=== PATIENT | female | born 1975 | race Caucasian/White ===

== ENCOUNTER 2023-04-11 09:00 | Emergency (ER) | payer MEDICARE ==
[2023-04-11 09:58] LABS: Absolute Lymphocytes (CBC) 1.4 K/uL (0.7-4.9); Hematocrit 40.9 % (36.0-45.0); Lymphocytes % 27.8 % (15.3-44.8); MCV 89.9 fL (80-100); RBC Red Blood Cell Count 4.55 M/uL (3.86-4.86)
[2023-04-11 09:59] LABS: Specific Gravity 1.009 (1.005-1.030); Urine Bacteria <20 /HPF (<20); Urine Bilirubin NEGATIVE (Negative); Urine Blood Negative (Negative); Urine Clarity Clear (Clear); Urine Color Light-Yellow (Yellow); Urine Glucose NEGATIVE (Negative); Urine Mucus Slight /HPF (None Seen); Urine Protein NEGATIVE (Negative); Urine RBC <5 /HPF (None Seen); Urine Urobilinogen Normal (Normal)
[2023-04-11 10:15] LABS: Albumin 3.8 g/dL (3.4-5.0); Bilirubin Total 0.5 mg/dL (0.2-1.0); Potassium 3.8 mEq/L (3.5-5.1); Protein, Total 7.6 g/dL (6.4-8.2)
--- NOTE | 2023-04-11 11:27 | RAD REPORT ---
EXAM DESCRIPTION: CT - Abdomen Pelvis W Contrast - 04/11/2023 11:05 am CLINICAL HISTORY: CONSTIPATION COMPARISON: No comparisons TECHNIQUE: Thin cut axial CT imaging of the abdomen and pelvis was performed following intravenous a dministration of 100 mL Isovue 300. Multiplanar reformats were generated and reviewed. All CT scans are performed using dose optimization technique as appropriate and may include automated exposure control or mA/KV adjustment according to patient size. FINDINGS: No suspicious findings in the lung bases. The liver demonstrates a micronodular contour and relative hypertrophy of the left liver lobe, sugges tive of cirrhosis. Adrenal glands, spleen, and pancreas show no suspicious findings. Gallbladder and biliary tree are also without suspicious finding. Symmetric renal function is seen with no hydronephrosis or suspicious renal mass. No dilated bowel loops or bowel wall thickening. No free air, free fluid or inflammatory stranding. N o hernia, mass or bulky lymphadenopathy. The urinary bladder is without significant finding. No suspicious bony findings. IMPRESSION: Micro nodular liver contour, suggestive of cirrhosis. No acute intra-abdominal process.
--- NOTE | 2023-04-11 12:00 | ER ---
Nurse's Notes [facility] Name: Brandy Barraza Age: 47 yrs Sex: Female : 1975 Arrival Date: 04/11/2023 Time: 09:00 Bed 16 Private MD: Diagnosis: Constipation, Liver Cirrhosis Presentation: 04/11 09:22 Chief complaint: Patient states: constipation and epigastric, last BM 4-5 days ago, ph uses laxatives regularly. Vaginal bleeding, dark blood with clots for past few days. Coronavirus screen: Vaccine status: Patient reports receiving the 2nd dose of the covid vaccine. Ebola Screen: No symptoms or risks identified at this time. Initial Sepsis Screen: Does the patient meet any 2 criteria? No. Patient's initial sepsis screen is negative. Does the patient have a suspected source of infection? No. Patient's initial sepsis screen is negative. Risk Assessment: Do you want to hurt yourself or someone else? Patient reports no desire to harm self or others. Onset of symptoms was April 11, 2023. : Method Of Arrival: Ambulatory ph : Acuity: CINTHIA 3 Triage Assessment: : General: Appears in no apparent distress. uncomfortable, Behavior is cooperative, ph appropriate for age, anxious. Pain: Complains of pain in epigastric area Pain does not radiate. EENT: No signs and/or symptoms were reported regarding the EENT system. Neuro: Level of Consciousness is awake, alert, obeys commands, Oriented to person, place, time, situation, Reports weakness. Cardiovascular: Capillary refill < 3 seconds Patient's skin is warm and dry. Respiratory: Airway is patent Respiratory effort is even, unlabored, Respiratory pattern is regular, symmetrical. GI: Abdomen is round non-distended, Abd is soft and non tender X 4 quads. Reports constipation, cramping, epigastric pain. : Reports vaginal bleeding that is brown, with clots. Derm: Skin is pink, warm \T\ dry. Musculoskeletal: Circulation, motion, and sensation intact. Range of motion: intact in all extremities. 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 - Social history:: Smoking status: Patient reports the use of cigarette tobacco products, smokes 0.25 packs per day, Patient/guardian denies using alcohol. Screenin:30 [facility] ED Fall Risk Assessment (Adult) Score/Fall Risk Level 0 - 2 = Low Risk. Abuse ph screen: Denies threats or abuse. Denies injuries from another. Nutritional screening: No deficits noted. Tuberculosis screening: No symptoms or risk factors identified. Assessment: 09:30 Reassessment: No changes from previously documented assessment. See triage assessment. ph 10:30 Reassessment: Patient appears in no apparent distress at this time. Patient and/or eh3 family updated on plan of care and expected duration. Pain level reassessed. Patient is alert, oriented x 3, equal unlabored respirations, skin warm/dry/pink. 11:30 Reassessment: Patient appears in no apparent distress at this time. Patient and/or eh3 family updated on plan of care and expected duration. Pain level reassessed. Patient is alert, oriented x 3, equal unlabored respirations, skin warm/dry/pink. Vital Signs: 09:22 BP 140 / 63; Pulse 67; Resp 20; Temp 98.2(IR); Pulse Ox 97% ; Weight 74.84 kg; Height 5 ph ft. 5 in. ; Pain 2/10; 10:30 BP 118 / 81; Pulse 61; Resp 18; Pulse Ox 96% on R/A; eh3 11:30 BP 115 / 78; Pulse 63; Resp 18; Pulse Ox 95% on R/A; eh3 09:22 Body Mass Index 27.46 (74.84 kg, 165.1 cm) ph 09:22 Pain Scale: Adult ph ED Course: 09:02 Patient arrived in ED. am2 09:07 Soila Marroquin MD is Attending Physician. sp3 09:22 Lindsay Champagne, RN is Primary Nurse. ph : Triage completed. ph 09:26 Arm band placed on. ph 09:30 Patient has correct armband on for positive identification. Placed in gown. Bed in low ph position. Call light in reach. Side rails up X2. Pulse ox on. NIBP on. 09:45 Inserted saline lock: 20 gauge in right antecubital area, using aseptic technique. eh3 Blood collected. 11:07 CT Abd/Pelvis - PO and IV Contrast: Weight loss In Process Unspecified. EDMS 11:59 Luisito Tam MD is Referral Physician. sp3 12:30 No provider procedures requiring assistance completed. IV discontinued, intact, eh3 bleeding controlled, No redness/swelling at site. Pressure dressing applied. Administered Medications: No medications were administered Medication: 12:30 VIS not applicable for this client. eh3 Outcome: 11:59 Discharge ordered by . sp3 12:31 Discharged to home ambulatory. eh3 12:31 Condition: stable 12:31 Discharge instructions given to patient, significant other, Instructed on discharge instructions, follow up and referral plans. Demonstrated understanding of instructions, follow-up care. 12:35 Patient left the ED. eh3 Signatures: Dispatcher [employer] [facility] Lindsay Champagne, RN RN Brandy Hartley am2 Soila Marroquin MD MD sp3 Sondra Champagne RN RN eh3 Corrections: (The following items were deleted from the chart) 10:30 10:26 Reassessment: Patient appears in no apparent distress at this time. Patient eh3 and/or family updated on plan of care and expected duration. Pain level reassessed. Patient is alert, oriented x 3, equal unlabored respirations, skin warm/dry/pink. eh3
--- NOTE | 2023-04-11 12:00 | EDPHYS ---
Physician Documentation [facility] Name: Brandy Barraza Age: 47 yrs Sex: Female : 1975 Arrival Date: 04/11/2023 Time: 09:00 Bed 16 Private MD: ED Physician Soila Marroquin HPI: 04/11 09:20 This 47 yrs old Female presents to ER via Unassigned with complaints of Weakness, sp3 GI/digestion problems, Skin Problem. 09:20 47-year-old female with history of hepatitis C, anxiety, chronic constipation now sp3 presents to the ED with chief complaint constipation with last bowel movement 4 days ago with use of laxatives, shakiness and generalized weakness. Patient does not have a local primary care physician but is seeing a heel attacher wood once over a month ago. She denies any fever, headache, neck pain, chest pain, shortness of breath, nausea, vomiting, diarrhea, abdominal pain, travel history, change in diet, known sick contacts, or any other symptoms on ROS at this time.. 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 - Social history:: Smoking status: Patient reports the use of cigarette tobacco products, smokes 0.25 packs per day, Patient/guardian denies using alcohol. ROS: 09:22 Constitutional: Negative for fever, chills, and weight loss, Eyes: Negative for injury, sp3 pain, redness, and discharge, ENT: Negative for injury, pain, and discharge, Neck: Negative for injury, pain, and swelling, Cardiovascular: Negative for chest pain, palpitations, and edema, Respiratory: Negative for shortness of breath, cough, wheezing, and pleuritic chest pain, Back: Negative for injury and pain, MS/Extremity: Negative for injury and deformity, Skin: Negative for injury, rash, and discoloration, Neuro: Negative for headache, weakness, numbness, tingling, and seizure. 09:22 All other systems are negative. Exam: 09:22 Constitutional: This is a well developed, well nourished patient who is awake, alert, sp3 and in no acute distress. Head/Face: Normocephalic, atraumatic. Eyes: Pupils equal round and reactive to light, extra-ocular motions intact. Lids and lashes normal. Conjunctiva and sclera are non-icteric and not injected. Cornea within normal limits. Periorbital areas with no swelling, redness, or edema. Neck: Trachea midline, no thyromegaly or masses palpated, and no cervical lymphadenopathy. Supple, full range of motion without nuchal rigidity, or vertebral point tenderness. No Meningismus. Chest/axilla: Normal chest wall appearance and motion. Nontender with no deformity. No lesions are appreciated. Cardiovascular: Regular rate and rhythm with a normal S1 and S2. No gallops, murmurs, or rubs. Normal PMI, no JVD. No pulse deficits. Respiratory: Lungs have equal breath sounds bilaterally, clear to auscultation and percussion. No rales, rhonchi or wheezes noted. No increased work of breathing, no retractions or nasal flaring. Abdomen/GI: Soft, non-tender, with normal bowel sounds. No distension or tympany. No guarding or rebound. No evidence of tenderness throughout. Back: No spinal tenderness. No costovertebral tenderness. Full range of motion. Skin: Warm, dry with normal turgor. Normal color with no rashes, no lesions, and no evidence of cellulitis. MS/ Extremity: Pulses equal, no cyanosis. Neurovascular intact. Full, normal range of motion. Neuro: Awake and alert, GCS 15, oriented to person, place, time, and situation. Cranial nerves II-XII grossly intact. Motor strength 5/5 in all extremities. Sensory grossly intact. Cerebellar exam normal. Normal gait. Psych: Awake, alert, with orientation to person, place and time. Behavior, mood, and affect are within normal limits. Vital Signs: 09:22 BP 140 / 63; Pulse 67; Resp 20; Temp 98.2(IR); Pulse Ox 97% ; Weight 74.84 kg; Height 5 ph ft. 5 in. ; Pain 2/10; 10:30 BP 118 / 81; Pulse 61; Resp 18; Pulse Ox 96% on R/A; eh3 11:30 BP 115 / 78; Pulse 63; Resp 18; Pulse Ox 95% on R/A; eh3 09:22 Body Mass Index 27.46 (74.84 kg, 165.1 cm) ph 09:22 Pain Scale: Adult ph MDM: 09:07 Patient medically screened. sp3 09:22 Data reviewed: vital signs, nurses notes, lab test result(s), radiologic studies. ED sp3 course: 47-year-old female with generalized constipation, generalized weakness, and reported weight loss and mild night sweats. Patient does not have any abdominal pain does not have a surgical abdomen. Will obtain CT scan with p.o. and IV contrast to assess for general bowel pattern and assess for any potential observable malignancy potential. Patient does have paternal history of lung cancer. Patient is currently menstruating and I do not believe is . If work-up negative, will discharge patient home to PCP who clinically have ruled out surgical abdomen, vascular compromise, sepsis, shock, infection, or any other significant critical findings at this time.. 11:58 ED course: Laboratory values are normal other than mild elevated lipase. Patient sp3 started heavy alcohol user and remainder of liver function and bilirubin biliary tree labs are normal. CT scan demonstrates no biliary pathology. Will DC and follow-up with PCP.. 04/11 09:19 Order name: CBC with Diff; Complete Time: 10:48 sp3 04/11 09:19 Order name: CMP; Complete Time: 10:48 sp3 04/11 09:19 Order name: Lipase; Complete Time: 10:48 sp3 04/11 09:19 Order name: Test, Urine; Complete Time: 10:48 sp3 04/11 09:19 Order name: Urinalysis w/ reflexes; Complete Time: 10:48 sp3 04/11 09:19 Order name: CT Abd/Pelvis - PO and IV Contrast: Weight loss; Complete Time: 11:58 sp3 04/11 09:19 Order name: IV Saline Lock; Complete Time: 09:50 sp3 04/11 09:19 Order name: Labs collected and sent; Complete Time: 09:50 sp3 04/11 09:19 Order name: NPO; Complete Time: 09:30 sp3 Administered Medications: No medications were administered Disposition Summary: 04/11/23 11:59 Discharge Ordered Location: Home sp3 Condition: Stable sp3 Diagnosis - Constipation, Liver Cirrhosis sp3 Followup: sp3 - With: Luisito Tam MD - When: Upon discharge from the Emergency Department - Reason: Further diagnostic work-up, Recheck today's complaints Discharge Instructions: - Discharge Summary Sheet sp3 - Chronic Constipation sp3 Forms: - Medication Reconciliation Form sp3 - Thank You Letter sp3 - Antibiotic Education sp3 - Prescription Opioid Use sp3 Signatures: Dispatcher [employer] Lindsay Roche RN RN Soila Santiago MD MD sp3
[2023-04-11 12:52] VITALS: TEMP 98.2
[2023-04-11 12:56] VITALS: BP 115/78; O2SAT 95
== END 2023-04-11 12:35 | disposition home or self-care (01) ==
LOC: ER 09:00
DX: K74.60 Unspecified cirrhosis of liver (principal); K59.00 Constipation, unspecified; B19.20 Unspecified viral hepatitis C without hepatic coma; F17.210 Nicotine dependence, cigarettes, uncomplicated
CPT/HCPCS: 36415; 74177; 80053; 81001; 81025; 83690; 85025; Q9967

== ENCOUNTER 2023-09-05 22:20 | Emergency (ER) | payer MEDICARE, SELFPAY ==
--- OUTSIDE RECORDS SUMMARY | 2023-09-05 22:26 | XMS REPORT | Continuity of Care Document ---
:[address] [facility] t Address [address] [facility] [address] [place] [id number] Care Team Providers Name Role Phone PCP, PATIENT DOES NOT HAVE A Primary Care Physician UnavailLATASHA Oneal Attending Clinician Unavailable AVERY ELIZABETH Attending Clinician Unavailable ANNA DIAZ Attending Clinician Unavailable Anna Diaz MD Attending Clinician Doctor Unassigned, [place] Attending Clinician Unavailable Jerman Vital Attending Clinician Unavailable Garth Shipman Attending Clinician Unavailable Physician, No Primary or Family Admitting Clinician UnavailBerto Rousseau Admitting Clinician Unavailable Payers Payer Name Policy Type Policy Number Effective Date Expiration Date S aida AETNA [facility] 9 [id number] 2023 SILVER: HMO [place] 94 00:00:00 ON STAND HIM BCBS BLUE [id number] 2022 ADVANTAGE HMO 00:00:00 Problems Condition Condition Condition Status Onset Resolution Last Treating Co mments Source Name Details Category Date Date Treatment Clinician Date Liver Liver Disease Active [facility] disease disease [facility] [place] [facility] [place] 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 [place] infection infection Medi pauline Branch Allergies, Adverse Reactions, Alerts Allergy Allergy Status Severity Reaction(s) Onset Inactive Treating Comm ents Source Name Type Date Date Clinician No Known DA Active U [facility] Allergie 6 Corpus s 00:00: Pauline 00 [facility] No Known DA Active U [facility] Allergie 6 Corpus s 00:00: Pauline 00 [facility] No Known DA Active U [facility] Allergie 7 Corpus s 00:00: [facility] NO KNOWN Drug Active Univers ALLERGIE Class ity of S [facility] Social History Social Habit Start Date Stop Date Quantity Comments Source History of tobacco Cigarette Smoker [facility] Exposure to 2023-01-08 2023-01-18 Not sure [facility]-CoV-2 (event) 00:00:00 09:32:00 [facility] Cigarettes smoked 2023-01-18 2023-01-18 [facility] ity current (pack per 00:00:00 00:00:00 [facility] ) - Reported Branch Tobacco use and 2023-01-18 2023-01-18 Smokeless Universit y of exposure 00:00:00 00:00:00 tobacco non-user [facility] Alcohol intake 2023-01-18 2023-01-18 Ex-drinker [facility] 00:00:00 00:00:00 (finding) [facility] At [birth year] [facility] Smoking Status Start Date Stop Date Source Tobacco smoking consumption [facility] Branch Smokes tobacco daily 2023-01-18 00:00:00 Univers ity of [facility] Medications Ordered Filled Start Stop Current Ordering Indication Dosage Frequency Signature Comments Components Source Medication Medication Date Date Medication? Clinician (SIG) Name Name venlafaxine Yes 150mg Take 1 Uni vers XR 150 mg 2-13 capsule by ity of 24 hr 00:00: mouth in [place] capsule 00 the Medical morning. Branch venlafaxine Yes 150mg Take 1 Uni vers XR 150 mg 2-13 capsule by ity of 24 hr 00:00: mouth in [place] capsule 00 the Medical morning. Branch spironolact Yes TAKE ONE Un loretta one 50 mg 1-27 (1) ity of tablet 00:00: TABLET(S) [place] 00 BY MOUTH Medical IN THE [place] MORNING AND TWO (2) AT NIGHT. venlafaxine Yes 75mg Take 1 Univ ers XR 75 mg 24 1-27 capsule by it y of hr capsule 00:00: mouth in [place] as 00 the Medical morning. Branch spironolact Yes TAKE ONE Un loretta one 50 mg 1-27 (1) ity of tablet 00:00: TABLET(S) [place] 00 BY MOUTH Medical IN THE [place] MORNING AND TWO (2) AT NIGHT. venlafaxine 0 Yes 75mg Take 1 Univ ers XR 75 mg 24 1-27 capsule by it y of hr capsule 00:00: mouth in [place] as 00 the Medical morning. [place] Vital Signs Vital Name Observation Time Observation Value Comments Source Systolic blood 2023-01-18 15:58:00 121 mm[Hg] [facility] Diastolic blood 2023-01-18 15:58:00 80 mm[Hg] [facility] rate 2023-01-18 15:58:00 72 /min [facility] Body temperature 2023-01-18 15:58:00 36.72 [facility] Respiratory rate 2023-01-18 15:58:00 16 /min [facility] Body height 2023-01-18 15:58:00 165.1 cm [facility] Body weight 2023-01-18 15:58:00 81.92 kg [facility] BMI 2023-01-18 15:58:00 30.05 kg/m2 [facility] Oxygen saturation in 2023-01-18 15:58:00 97 /min [facility] Arterial blood by [facility] [place] Pulse oximetry [place] Procedures Procedure Date / Time Performed Performing Clinician Sourc e URINE CULTURE 2023-01-18 16:54:00 Anna Diaz [place] o f [facility] CONSENT/REFUSAL FOR 2023-01-18 15:33:37 Doctor Unassigned, No [facility] TREATMENT ASSIGNMENT OF BENEFITS 2023-01-18 15:33:21 Doctor Unassigned, No [facility] POCT URINALYSIS W/O 2023-01-18 00:00:00 Anna Diaz ty of [facility] Encounters Start End Encounter Admission Attending Care Care Encounter Source Date/Time Date/Time Type Type Clinicians Facility Department ID 2019-12-04 Inpatient [facility] ER [id number] [facility] 11:10:00 [id number] [facility] 2019-12-03 Inpatient [facility] ER [id number] [facility] 07:17:00 [id number] [facility] 2023-09-16 2023-09-16 Outpatient ANA SEVILLA [id number] Ana 14:30:00 14:30:00 LATASHA torres 2023-02-11 2023-02-11 Outpatient R ADMANUEL, [facility] [id number] Univers 10:30:00 10:30:00 ANNA [facility] 2023-01-21 2023-01-21 Outpatient R ADUM, [facility] [id number] Univers 00:00:00 00:00:00 ANNA [facility] 2023-01-18 2023-01-18 Outpatient R ADUM, [facility] [id number] Univers 10:30:00 11:02:40 ANNA [facility] 2023-01-18 2023-01-18 Office Adum, [facility] [id number] Univers 10:30:00 11:02:40 Visit Anna DALEY [id number] i ty of [id number] [facility] [id number] [facility] 134 Branch 2023-01-18 2023-01-18 Orders Doctor ABHIJEET [id number] Univers 00:00:00 00:00:00 Only Unassigned, AISLINN [id number] ity of [place] [facility] [id number] [place] as [id number] [facility] 009 Branch 2022-05-14 2022-05-17 Emergency EM Amanuel, [facility] ER [id number] [facility] 14:26:00 11:45:00 Jerman Bauman [facility] 2022-05-142022-05-17 Emergency EM Amanuel, [facility] [id number] [facility] 14:26:00 11:45:00 Jerman [id number] [facility] 2022-03-24 2022-03-24 Emergency EM Ramonita, [facility] [id number] [facility] 19:55:00 21:28:00 Garth 27 [facility] 2022-03-24 2022-03-24 Emergency EM Ramonita, [facility] [id number] [facility] 19:55:00 21:28:00 Garth [id number] [facility] Results Test Description Test Time Test Comments Results Result Comments Source POCT URINALYSIS W/O SPECIFIC GRAVITY 2023-01-18 16:53:00 Test Item Value Reference Range Interpretation Comme nts POCT PH U (test code = 3254) 7 mg/dl 5-8 POCT U LEUK EST (test code = 3263) negative Negative - Negative POCT U NIT (test code = 3262) negative Negative - Negative POCT U PROT (test code = 3259) trace Negative - Negative POCT U GLU (test code = 3256) negative Negative - Negative POCT U KETONE (test code = 3258) negative Negative - Negative POCT U BLD (test code = 3257) 50 Negative - Negative [facility] URINALYSIS W/O SPECIFIC [id number] 16:53:00 Test Item Value Reference Range Interpretation Comments POCT PH U (test code = 3254) 7 mg/dl 5-8 POCT U LEUK EST (test code = negative Negative - Negative 3263) POCT U NIT (test code = 3262) negative Negative - Negative POCT U PROT (test code = 3259) trace Negative - Negative POCT U GLU (test code = 3256) negative Negative - Negative POCT U KETONE (test code = 3258) negative Negative - Negative POCT U BLD (test code = 3257) 50 Negative - Negative [facility]2022-06-27 03:53:00 Test Item Value Reference Range Interpretation Comments CK (test code = CKT) 426 Units/L 26-192 H THIS IS A RECOLLECT-PRVS [id number] 13:23:00 Test Item Value Reference Range Interpretation Comments CK (test code = CKT) 544 Units/L 26-192 H [id number] 06:29:00 Test Item Value Reference Range Interpretation Comments CK (test code = CKT) 675 Units/L 26-192 H [id number] 17:36:00 Test Item Value Reference Range Interpretation Comments CK (test code = CKT) 990 Units/L 26-192 H CBC W/AUTO [id number] 17:24:00 Test Item Value Reference Range Interpretation Comments WHITE BLOOD CELL (test 8.16 x10 3/uL 4.80-10.80 N code = WBC) RED BLOOD CELL (test 4.12 x10 6/uL 4.2-5.4 L code = RBC) HEMOGLOBIN (test code = 12.8 G/DL 12.0-16.0 VERI FIED BY HGB) REPEATED ANALYS IS BY Mukul Betancourt 05/15/22 HEMATOCRIT (test code = 36.0 % 37-47 L HCT) MEAN CELL VOLUME (test 87.4 FL 81-99 N code = MCV) MEAN CELL HGB (test 31.1 PG 27-31 H code = MCH) MEAN CELL HGB 35.6 G/DL 33-37 N CONCENTRATION (test code = MCHC) RED CELL DISTRIBUTION 13.2 % 11.5-14.5 N WIDTH (test code = RDW) PLATELET COUNT (test 126 x10 3/uL 150-450 L code = PLT) MEAN PLATELET VOLUME 9.4 FL 7.4-10.4 N (test code = MPV) NEUTROPHIL % (test code 78.9 % 42-86 N = NT%) IMMATURE GRANULOCYTE % 0.6 % 0.0-2.0 N (test code = IG%) LYMPHOCYTE % (test code 13.1 % 24-44 L = LY%) MONOCYTE % (test code = 5.4 % 0.0-4.0 H MO%) EOSINOPHIL % (test code 1.5 % 0.0-2.7 N = EO%) BASOPHIL % (test code = 0.5 % 0.0-0.5 N BA%) NUCLEATED RBC % (test 0.0 % 0.0-0.0 N code = NRBC%) NEUTROPHIL # (test code 6.44 x10 3/uL 1.8-7.7 N = NT#) IMMATURE GRANULOCYTE # 0.05 x10 3/uL 0.00-0.03 H (test code = IG#) LYMPHOCYTE # (test code 1.07 x10 3/uL 1.0-4.8 N = LY#) MONOCYTE # (test code = 0.44 x10 3/uL 0.0-0.8 N MO#) EOSINOPHIL # (test code 0.12 x10 3/uL 0.0-0.5 N = EO#) BASOPHIL # (test code = 0.04 x10 3/uL 0.0-0.2 N BA#) NUCLEATED RBC # (test 0.0 X10 3/uL 0.0-0.2 N code = NRBC#) [id number] 14:42:00 Test Item Value Reference Range Interpretation Comments CK (test code = CKT) 1094 Units/L 26-192 H [id number] 04:55:00 Test Item Value Reference Range Interpretation Comments CK (test code = CKT) 1510 Units/L 26-192 H [id number] 00:46:00 Test Item Value Reference Range Interpretation Comments CK (test code = CKT) 1683 Units/L 26-192 H LACTIC [id number] 16:06:00 Test Item Value Reference Range Interpretation Comments LACTIC ACID (test code = LACT) 0.8 MMOL/L 0.5-2.2 N Coronavirus 2019 nCoV [id number] 15:20:00 Test Item Value Reference Range Interpretation Comments Coronavirus 2019 Negative Negative ID NOW COVI D-19 assay nCoV Bedside (test performed on the ID NOW code = [id number]) Instrum ent evelyn rapid molecular in vi tro diagnostic test utilizing anisothermal nu cleic acid amplification t echnology intendedfor the qualitative det ection of nucleic acid fr om [id number] v iral RNA in direct nasal , nasopharyngeal orthroat swabs and nasal , nasopharyngeal or throat swabseluted in viral transport media from individuals who aresuspected of COVID-19 by their health care provider. Negat mk results should be treated as presumptive and, ifinconsistent with clinical signs and symptoms or nec essaryfor patient managem ent, should be teste d with differentauthor ized or cleared molecul ar tests. Negative result s donot preclude SARS-C oV-2 infection and s hould not be used asthe s ole basis for patient man agement decisions. Negativeresults should be considered in t he context of a patient'sr ecent exposures, hist ory and presence of cli nical signs andsympto ms consistent with COVID-19.Result s are for the identificat ion of SARS-CoV-2 RNA. For Use Under an Emerge ncy Use Authorization ( EUA) Only Negative result s do not preclude SARS-C oV-2 infection andsh ould not be used as the sole basis for patient managementdecis ions. Negative result s must be combined with clinicalobserva tions, patient history , and epidemiological informatio n. COMPREHENSIVE METABOLIC [id number] 15:19:00 Test Item Value Reference Range Interpretation Comments SODIUM (test code = 132 MMOL/L 133-145 L NA) POTASSIUM (test code = 3.9 MMOL/L 3.6-5.2 N K) CHLORIDE (test code = 96 MMOL/L 100-108 L CL) CARBON DIOXIDE (test 26 MMOL/L 22-32 N code = CO2) GLUCOSE (test code = 110 MG/DL 65-99 H Results of this GLU) assay method ma y be falsely depress ed orelevated if patient is taki ng sulfasalazine. BLOOD UREA NITROGEN 31 MG/DL 6-20 H (test code = BUN) GLOMERULAR FILTRATION 47 58-135 L Report ing units: RATE (test code = GFR) mL/mi n/1.73m\S\2 (Modified MDRD Formula) CREATININE (test code 1.25 MG/DL 0.60-1.00 H = CREAT) TOTAL PROTEIN (test 9.2 G/DL 6.4-8.2 H code = PROT) ALBUMIN (test code = 4.7 G/DL 3.4-5.0 N ALB) GLOBULIN (test code = 4.5 G/DL 1.5-3.8 H GLOB) ALBUMIN/GLOBULIN RATIO 1.0 1.1-2.2 L (test code = A/G) CALCIUM (test code = 9.4 MG/DL 8.7-10.5 N CA) BILIRUBIN TOTAL (test 2.4 MG/DL 0.0-1.0 H code = BILT) SGOT/AST (test code = 91 Units/L 15-37 H Result s of this AST) assay method rd y be falsely depress ed orelevated if patient is taki ng sulfasalazine. SGPT/ALT (test code = 51 Units/L 30-65 N Result s of this ALT) assay method rd y be falsely depress ed orelevated if patient is taki ng sulfasalazine. ALKALINE PHOSPHATASE 105 Units/L 50-136 N TOTAL (test code = ALKP) [id number] 15:19:00 Test Item Value Reference Range Interpretation Comments CK (test code = CKT) 2228 Units/L 26-192 H [id number] 15:19:00 Test Item Value Reference Range Interpretation Comments ACETAMINOPHEN (test < 1 MCG/ML 10-30 L Acetamin ophen is code = ACET) possibly toxic at levels of: 1. m ore than 150 MCG/ML 4 hours post trent stion. 2. more than 50 MCG/ML 12 hours post ingestion. [id number] 15:19:00 Test Item Value Reference Range Interpretation Comments SALICYLATE (test code = < 3 MG/DL 0-20 N Refe rence Range: TEMO) Analgesic...... ...... ...... < 10 mg/ dl Therapeutic.... ...... ...... 15-20 mg /dl Mild Toxicity....... ...... . > 30 mg/dl Se kate Toxicity....... ..... > 60 mg/dl [id number] 15:19:00 Test Item Value Reference Range Interpretation Comments ALCOHOL (test code = < 3 MG/DL 0-10 N 0 - 10 : Should be ALC) interpreted as NEGATIVE. 11 - 50: None t o mild euphoria. 51 - 100: Mild influence on vi lai and dark adaptation . > 80: Legal intoxicat ion; Depression of C NS; Increasing degr ee of poisoning. > 40 0: Fatalities repo rted. Results are for medical purposes only a nd not forlegal or emp loyment evaluative purp oses. UA RFLX [id number] 15:16:00 Test Item Value Reference Range Interpretation Comments UA COLOR (test code = COLU) YELLOW YELLOW UA APPEARANCE (test code = HAZY CLEAR APPU) UA GLUCOSE DIPSTICK (test NEGATIVE mg/dL NEGATIVE code = DGLUU) UA BILIRUBIN DIPSTICK (test NEGATIVE NEGATIVE code = BILU) UA KETONE DIPSTICK (test code 5 mg/dL NEGATIVE A = KETU) UA SPECIFIC GRAVITY (test 1.030 1.001-1.035 N code = SGU) UA BLOOD DIPSTICK (test code 1+ NEGATIVE A = BRIELLE) UA PH DIPSTICK (test code = 5.0 5.5-7.0 L KINGS) UA PROTEIN DIPSTICK (test 30 mg/dL NEGATIVE A code = PROU) UA UROBILINOGEN DIPSTICK NORMAL mg/dL NORMAL (test code = URO) UA NITRITE DIPSTICK (test NEGATIVE NEGATIVE code = EVANGELIST) UA LEUKOCYTE ESTERASE 25 NEGATIVE A DIPSTICK (test code = LEUU) UA COMMENT (test code = COMU) VOLUME 10-12 ML URINE SPECIMEN DESCRIPTION Clean Catch (test code = UASPEC) UA [id number] 15:16:00 Test Item Value Reference Range Interpretation Comments UA WBC (test code = WBCU) > 10 #/hpf <10 A UA RBC (test code = RBCU) 0-2 #/hpf NONE SEEN A UA SQUAMOUS CELLS (test code = 0 - 20 #/lpf <100 SQU) UA CULTURE NEEDED? (test code = Criteria met UACULT) UA BACTERIA (test code = BACU) 2+ #/hpf NONE SEEN UA AMORPHOUS SEDIMENT (test code FEW #/lpf None seen = AMORU) DRUG OF ABUSE SCREEN [id number] 15:09:00 Test Item Value Reference Interpretation Comments Range UR COCAINE (test NEGATIVE NEGATIVE code = COCAU) UR MDMA (test code = POSITIVE NEGATIVE A If conf irmatory testing MDMAQLU) required, conta ct laboratory. UR CANNABINOIDS POSITIVE NEGATIVE A If confirmat ory testing (test code = CANU) required, contact laboratory. UR AMPHETAMINE (test POSITIVE NEGATIVE A If conf irmatory testing code = AMPHU) required, cont act laboratory. UR BARBITURATE QUAL NEGATIVE NEGATIVE (test code = BARBQLU) UR BENZODIAZEPINE POSITIVE NEGATIVE A If confirm atory testing (test code = BENZU) required , contact laboratory. UR OPIATES QUAL NEGATIVE NEGATIVE (test code = OPIAQLU) UR PHENCYCLIDINE NEGATIVE NEGATIVE Urine Drug Abuse Screen (PCP) (test code = provides preliminary PHENCU) results thatmay be confirmed by jossue baltazar methods (i.e., [facility]) [facility]. Results of scre en may not be usedin crimi nal justice, job performance or professionalcre dential review, or infa nt custody issues. Negativ e [place] Level ng/ml ------- ----- Cocaine 300 Methamphetamine (Ecstacy) 500 Cannabinoid s (THC) 50 Amphetamine 100 0 Barbiturates 20 0 Benzodiazepines 200 Opiates 300 Phencyclid ine (PCP) 25 UR HCG [id number] 14:59:00 Test Item Value Reference Range Interpretation Comments UR HCG QUAL (test NEGATIVE NEGATIVE False nega tives may occur code = HCGQLU) when levels o f hCGare below 20 mIU/ml. When is still suspec cm, a new specimenshould be obtained after 48 hours and re-tested.If wa iting 48 hours is not me dically advisable,the t est result should be confi rmed using aquantitative h CG assay. CBC W/AUTO [id number] 14:57:00 Test Item Value Reference Range Interpretation Comments WHITE BLOOD CELL (test 18.75 x10 3/uL 4.80-10.80 H Res ults called to code = WBC) and read back Malena ARITA RN;1457, 05/14/22, D.LAB.AS1. RED BLOOD CELL (test 4.87 x10 6/uL 4.2-5.4 N code = RBC) HEMOGLOBIN (test code = 15.0 G/DL 12.0-16.0 N HGB) HEMATOCRIT (test code = 42.2 % 37-47 N HCT) MEAN CELL VOLUME (test 86.7 FL 81-99 N code = MCV) MEAN CELL HGB (test 30.8 PG 27-31 N code = MCH) MEAN CELL HGB 35.5 G/DL 33-37 N CONCENTRATION (test code = MCHC) RED CELL DISTRIBUTION 13.3 % 11.5-14.5 N WIDTH (test code = RDW) PLATELET COUNT (test 199 x10 3/uL 150-450 N code = PLT) MEAN PLATELET VOLUME 9.4 FL 7.4-10.4 N (test code = MPV) NEUTROPHIL % (test code 84.9 % 42-86 N = NT%) LYMPHOCYTE % (test code 8.3 % 24-44 L = LY%) MONOCYTE % (test code = 6.3 % 0.0-4.0 H MO%) EOSINOPHIL % (test code 0.2 % 0.0-2.7 N = EO%) BASOPHIL % (test code = 0.3 % 0.0-0.5 N BA%) NEUTROPHIL # (test code 15.93 x10 3/uL 1.8-7.7 H = NT#) LYMPHOCYTE # (test code 1.56 x10 3/uL 1.0-4.8 N = LY#) MONOCYTE # (test code = 1.18 x10 3/uL 0.0-0.8 H MO#) EOSINOPHIL # (test code 0.03 x10 3/uL 0.0-0.5 N = EO#) BASOPHIL # (test code = 0.05 x10 3/uL 0.0-0.2 N BA#) BASIC METABOLIC [id number] 21:15:00 Test Item Value Reference Range Interpretation Comments SODIUM (test code = 140 MMOL/L 133-145 N NA) POTASSIUM (test code = 4.0 MMOL/L 3.6-5.2 N K) CHLORIDE (test code = 104 MMOL/L 100-108 N CL) CARBON DIOXIDE (test 34 MMOL/L 22-32 H code = CO2) GLUCOSE (test code = 77 MG/DL 65-99 N Results of this assay GLU) method may be f alsely depressed orele vated if patient is t aking sulfasalazine. BLOOD UREA NITROGEN 13 MG/DL 6-20 N (test code = BUN) GLOMERULAR FILTRATION 91 58-135 N Report ing units: RATE (test code = GFR) mL/mi n/1.73m\S\2 (Modified MDRD Formula) CREATININE (test code 0.70 MG/DL 0.60-1.00 N = CREAT) CALCIUM (test code = 8.3 MG/DL 8.7-10.5 L CA) TROP-I HIGH [id number] 21:15:00 Test Item Value Reference Range Interpretation Comments TROP-I HIGH 10 ng/L < 51 This is a new t est. A SENSITIVITY (test transition from TropI to code = TROPIHS) TropIHS. The normal ranges and repo rting units have arriaga ged. Pleasereview re sults carefully.Res ults above 51 for females and 76 for males are consi stent with IFCC Committee recommendations to use the 99th percen tile of a normal populati on as a reference decis ion-limit. - The use of se rial sampling and te sting protocol is a r ecommended practive.- An e levated high sensitivei ty troponin level alone is often not suffi cient for diagnosis of my ocardial infarction.- In order to distinguish acu te elevations of h igh sensitivity tro ponin from other clinical conditions, the Fourth Lee Defin ition of Myocardial Infa rction stresses clinic al assessment and demonstration o f a rise and/or fall in serial troponin result s above the upper refer ence limit.Results o f this assay method ma y be falsely depress ed orelevated if p atient is taking high dos es of Biotin. UA RFLX MICROSCOPIC [id number] 21:02:00 Test Item Value Reference Range Interpretation Comments UA COLOR (test code = COLU) DARK YELLOW YELLOW UA APPEARANCE (test code = SLIGHTLY CLOUDY CLEAR APPU) UA GLUCOSE DIPSTICK (test NEGATIVE mg/dL NEGATIVE code = DGLUU) UA BILIRUBIN DIPSTICK (test NEGATIVE NEGATIVE code = BILU) UA KETONE DIPSTICK (test 5 mg/dL NEGATIVE A code = KETU) UA SPECIFIC GRAVITY (test 1.010 1.001-1.035 N code = SGU) UA BLOOD DIPSTICK (test code NEGATIVE NEGATIVE = BRIELLE) UA PH DIPSTICK (test code = 6.5 5.5-7.0 N KINGS) UA PROTEIN DIPSTICK (test NEGATIVE mg/dL NEGATIVE code = PROU) UA UROBILINOGEN DIPSTICK 1.0 mg/dL NORMAL (test code = URO) UA NITRITE DIPSTICK (test NEGATIVE NEGATIVE code = EVANGELIST) UA LEUKOCYTE ESTERASE 25 NEGATIVE A DIPSTICK (test code = LEUU) UA COMMENT (test code = VOLUME 10-12 ML COMU) URINE SPECIMEN DESCRIPTION Clean Catch (test code = UASPEC) UA WBC (test code = WBCU) < 10 #/hpf <10 UA SQUAMOUS CELLS (test code 0 - 20 #/lpf <100 = SQU) UA CULTURE NEEDED? (test Criteria not met code = UACULT) Indication for culture: Suprapubic PainURINE SOURCE: Clean CatchUA MICROSCOPIC 2022-03-24 21:02:00 Test Item Value Reference Range Interpretation Comments UA RBC (test code = RBCU) 0-2 #/hpf NONE SEEN A UA BACTERIA (test code = BACU) RARE #/hpf NONE SEEN Indication for culture: Suprapubic PainURINE SOURCE: Clean CatchUR HCG QUAL 2022-03-24 20:59:00 Test Item Value Reference Range Interpretation Comments UR HCG QUAL (test NEGATIVE NEGATIVE False nega tives may occur code = HCGQLU) when levels o f hCGare below 20 mIU/ml. When is still suspec cm, a new specimenshould be obtained after 48 hours and re-tested.If wa iting 48 hours is not me dically advisable,the t est result should be confi rmed using aquantitative h CG assay. CBC W/AUTO [id number] 20:57:00 Test Item Value Reference Range Interpretation Comments WHITE BLOOD CELL (test code = 4.76 x10 3/uL 4.80-10.80 L WBC) RED BLOOD CELL (test code = 4.20 x10 6/uL 4.2-5.4 N RBC) HEMOGLOBIN (test code = HGB) 12.8 G/DL 12.0-16.0 N HEMATOCRIT (test code = HCT) 37.9 % 37-47 N MEAN CELL VOLUME (test code = 90.2 FL 81-99 N MCV) MEAN CELL HGB (test code = MCH) 30.5 PG 27-31 N MEAN CELL HGB CONCENTRATION 33.8 G/DL 33-37 N (test code = MCHC) RED CELL DISTRIBUTION WIDTH 13.3 % 11.5-14.5 N (test code = RDW) PLATELET COUNT (test code = 112 x10 3/uL 150-450 L PLT) MEAN PLATELET VOLUME (test code 10.1 FL 7.4-10.4 N = MPV) NEUTROPHIL % (test code = NT%) 51.0 % 42-86 N LYMPHOCYTE % (test code = LY%) 37.0 % 24-44 N MONOCYTE % (test code = MO%) 7.8 % 0.0-4.0 H EOSINOPHIL % (test code = EO%) 4.0 % 0.0-2.7 H BASOPHIL % (test code = BA%) 0.2 % 0.0-0.5 N NEUTROPHIL # (test code = NT#) 2.43 x10 3/uL 1.8-7.7 N LYMPHOCYTE # (test code = LY#) 1.76 x10 3/uL 1.0-4.8 N MONOCYTE # (test code = MO#) 0.37 x10 3/uL 0.0-0.8 N EOSINOPHIL # (test code = EO#) 0.19 x10 3/uL 0.0-0.5 N BASOPHIL # (test code = BA#) 0.01 x10 3/uL 0.0-0.2 N - CT L-SPINE W/O [id number] 20:46:00 [facility] 1975 Sex: F Patient Name: IMER CHRISTIAN Unit No: [id number] EXAMS: CPT CODE: [id number] CT L-SPINE W/O CONTRAST 90704 Reason: right leg pain and back pain B2 EXAM: CT lumbar SPINE WITHOUT CONTRAST DATE: 03/24/2022 8:10 PM INDICATION: Right leg pain COMPARISON: None. TECHNIQUE: Volumetric acquisition of the lumbar spine without contrast. Reformatted images in the sagittal and coronal plane were included. This exam was performed according to our departmental dose-optimization program, which includes automated exposure control, adjustment of the mA and/or kV according to patient size and/or use of iterative reconstruction technique FINDINGS: The height and the structure of the lumbar vertebral bodies are well maintained. No acute fracture or dislocation. No lytic or blastic lesions. L1-L2 and L2-L3 are unremarkable. L3-L4: Annular bulge and posterior endplate spondylosis lateralizing to the rightresulting in right foraminal narrowing with displacement of the right L3 nerve root sleeve. Hypertrophy of the articular facet joints. Mild spinal canal stenosis. L4-L5: Concentric annular bulge and hypertrophy of the posterior elements resulting in canal stenosis. There is encroachment of the neural foramen by degenerative changes. L5-S1: Lateralizing to the left annular bulge with contact of the left S1 nerve root sleeve. Bilateral facet hypertrophy. Encroachment of the neural foramen by degenerative changes. IMPRESSION: Right foraminal narrowing at L3-L4 by degenerative changes with impingementof the exiting right L3 nerve root sleeve. Spinal canal stenosis at L3-L4 and L4-L5. 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 Recommend further evaluation with MRI [facility] NAME: IMER CHRISTIAN [address] [place] [address] PHYS: SANJUANITA - Garth Shipman [address] : 1975 AGE: 46 SEX: F [place], [place] [address] LOC: D.PER PHONE #: [phone] EXAM DATE: 03/24/2022 STATUS: REG ER FAX #: RAD NO: DC Dt: PAGE 1 Signed Report (CONTINUED) Patient Name: IMER CHRISTIAN Unit No: [id number] EXAMS: CPT CODE: [id number] CT L-S PINE W/O CONTRAST 27264 (Continued) Reason: right leg pain and back pain at 2045 Reported and signed by: Jenae Roche MD CC: Garth Shipman MD Technologist: Susan Le RT CT Trscrpt Dt/ (2045)[email or web address].[email or web address] Orig Print D/T: S: 03/24/2022 (2048) CTDI: DLP: [facility] NAME: IMER CHRISTIAN [address] [place] [address] PHYS: Garth Newell [address] : 1975 AGE: 46 SEX: F [place], [place] [address] LOC: DEVIN PHONE #: [phone] EXAM DATE: 03/24/2022 STATUS: REG ER FAX #: RAD NO: DC Dt: PAGE 2 Signed Report- XR FEMUR MIN 2 VW [id number] 20:41:00 [facility] : 1975 Sex: F Patient Name: IMER CHRISTIAN Unit No: [id number] EXAMS: CPT CODE: [id number] XR FEMUR MIN 2 [place] [address] Reason: right leg pain Examination: Right femur 2 views Location code: H60 Comparison: None Discussion: Clinical history is remarkable for pain. There is no evidence for acute fractureor dislocation. No lytic or blastic lesions identified. No other bony or soft tissue abnormalities are noted. Impression: 1. Normal right femur. at 2040 Reported and signed by: Cristofer Witt MD CC: Garth Shipman MD Technologist: Susan Le RT CT Trscrpt Dt/ (2040)DuVR5 Orig Print D/T: S: 03/24/2022 (2043) [facility] NAME: IMER CHRISTIAN [address] [place] [address] PHYS: Garth Newell [address] : 1975 AGE: 46 SEX: F [place] [address] [id number] LOC: DJosePER PHONE #: [phone] EXAM DATE: 03/24/2022 STATUS: REG ER FAX #: RAD NO: DC Dt: PAGE 1 Signed Report- CT HEAD/BRAIN W/O [id number] 20:21:00[facility] : 1975 Sex: F Patient Name: IMER CHRISTIAN Unit No: [id number] EXAMS: CPT CODE: [id number] CT HEAD/BRAIN W/O CONT 91610 Reason: expressive aphasia EXAMINATION: - CT HEAD/BRAIN W/O CONT. LOCATION: H42. HISTORY: Expressive aphasia, chest pain, palpitations, weakness. COMPARISON: None. TECHNIQUE: Routine CT of the head was performed without intravenous contrast as per protocol. One or more the following dose reduction techniques were used: Automated exposure control, adjustment of mA and/or kV accordingto patient size, and use of iterative reconstruction technique. FINDINGS: Brain Parenchyma: No hemorrhage or infarction. No mass effect or midline shift. Extra Axial Spaces: Unremarkable. Ventricular System: Unremarkable. Osseous Structures: Unremarkable. Visualized Paranasal Sinuses: Unremarkable. IMPRESSION: No CT evidence of acute intracranial abnormality or hemorrhage. at 2020 Reported and signed by: Maricruz Hurt MD CC:Garth Sihpman MD Technologist: Susan Le RT CT Trscrpt Dt/ (2020)t.[email or web address].[email or web address] Orig Print D/T: S: 03/24/2022 (2023) CTDI: DLP: [place] [facility] NAME: IMER CHRISTIAN [facility] [address] [place] [address] PHYS: Garth Newell [address] : 1975 AGE: 46 SEX: F [place], [place] [address] LOC: D.PER PHONE #: [phone] EXAM DATE: 03/24/2022 STATUS: PRE ER FAX #: RAD NO: DC Dt: PAGE 1 Signed ReportAB MYCOPLASMA [id number] 03:07:00 Test Item Value Reference Range Interpretation Comments AB MYCOPLASMA IGM < 770 U/mL 0-769 Negative (test code = <770Clinically MYCOMAB) significant pat unt of M. pneumoniae antibodynot det ected. Low Positive 7 70 - 950M. pneumonia e specific IgM presumptively d etected. Itis recommende d that another sample be collected 1-2we eks later to assure reactivity. Pos itive >950Highly sign ificant amount of M. pn eumoniae specificIgM ant ibody detected.Perfor med At: BN [facility] [address] [id number] ra Alisson CHRISTOPHER Ph:[phone] COMPREHENSIVE METABOLIC [id number] 06:34:00 Test Item Value Reference Range Interpretation Comments SODIUM (test code = 137 MMOL/L 133-145 N NA) POTASSIUM (test code = 3.6 MMOL/L 3.6-5.2 N K) CHLORIDE (test code = 102 MMOL/L 100-108 N CL) CARBON DIOXIDE (test 28 MMOL/L 22-32 N code = CO2) GLUCOSE (test code = 71 MG/DL 65-99 N Results of this GLU) assay method ma y be falsely depress ed orelevated if patient is taki ng sulfasalazine. BLOOD UREA NITROGEN 9 MG/DL 6-20 N (test code = BUN) GLOMERULAR FILTRATION 119 58-135 N Report ing units: RATE (test code = GFR) mL/mi n/1.73m\S\2 (Modified MDRD Formula) CREATININE (test code 0.56 MG/DL 0.60-1.00 L = CREAT) TOTAL PROTEIN (test 7.6 G/DL 6.4-8.2 N code = PROT) ALBUMIN (test code = 2.7 G/DL 3.4-5.0 L ALB) GLOBULIN (test code = 4.9 G/DL 1.5-3.8 H GLOB) ALBUMIN/GLOBULIN RATIO 0.6 1.1-2.2 L (test code = A/G) CALCIUM (test code = 8.3 MG/DL 8.7-10.5 L CA) BILIRUBIN TOTAL (test 0.5 MG/DL 0.0-1.0 N code = BILT) SGOT/AST (test code = 143 Units/L 15-37 H Result s of this AST) assay method ma y be falsely depress ed orelevated if patient is taki ng sulfasalazine. SGPT/ALT (test code = 150 Units/L 30-65 H Result s of this ALT) assay method ma y be falsely depress ed orelevated if patient is taki ng sulfasalazine. ALKALINE PHOSPHATASE 98 Units/L 50-136 N TOTAL (test code = ALKP) [id number] 06:34:00 Test Item Value Reference Range Interpretation Comments MAGNESIUM (test code = MAG) 1.7 MG/DL 1.8-2.4 L CBC W/AUTO [id number] 06:06:00 Test Item Value Reference Range Interpretation Comments WHITE BLOOD CELL (test code = 7.22 x10 3/uL 4.80-10.80 N WBC) RED BLOOD CELL (test code = 4.31 x10 6/uL 4.2-5.4 N RBC) HEMOGLOBIN (test code = HGB) 12.7 G/DL 12.0-16.0 N HEMATOCRIT (test code = HCT) 38.0 % 37-47 N MEAN CELL VOLUME (test code = 88.2 FL 81-99 N MCV) MEAN CELL HGB (test code = MCH) 29.5 PG 27-31 N MEAN CELL HGB CONCENTRATION 33.4 G/DL 33-37 N (test code = MCHC) RED CELL DISTRIBUTION WIDTH 12.7 % 11.5-14.5 N (test code = RDW) PLATELET COUNT (test code = 173 x10 3/uL 150-450 N PLT) MEAN PLATELET VOLUME (test code 9.9 FL 7.4-10.4 N = MPV) NEUTROPHIL % (test code = NT%) 55.8 % 42-86 N IMMATURE GRANULOCYTE % (test 3.9 % 0.0-2.0 H code = IG%) LYMPHOCYTE % (test code = LY%) 29.6 % 24-44 N MONOCYTE % (test code = MO%) 7.5 % 0.0-4.0 H EOSINOPHIL % (test code = EO%) 2.5 % 0.0-2.7 N BASOPHIL % (test code = BA%) 0.7 % 0.0-0.5 H NUCLEATED RBC % (test code = 0.0 % 0.0-0.0 N NRBC%) NEUTROPHIL # (test code = NT#) 4.03 x10 3/uL 1.8-7.7 N IMMATURE GRANULOCYTE # (test 0.28 x10 3/uL 0.00-0.03 H code = IG#) LYMPHOCYTE # (test code = LY#) 2.14 x10 3/uL 1.0-4.8 N MONOCYTE # (test code = MO#) 0.54 x10 3/uL 0.0-0.8 N EOSINOPHIL # (test code = EO#) 0.18 x10 3/uL 0.0-0.5 N BASOPHIL # (test code = BA#) 0.05 x10 3/uL 0.0-0.2 N NUCLEATED RBC # (test code = 0.0 X10 3/uL 0.0-0.2 N NRBC#) PROTHROMBIN [id number] 06:06:00 Test Item Value Reference Range Interpretation Comments PROTHROMBIN TIME 13.1 SECONDS 9.6-12.3 H PATIENT (test code = PTP) INTERNATIONAL NORMAL 1.16 Recomme nded INR range RATIO (test code = (warfarin therapy): INR) 2.0 - 3.0INR (International Normalized Rati o) should beused w hen interpreting or al anticoaglulant therapy. For at rial fibrillation an d treatment orprevention of deep vein thrombosis . Patients with Palmaz-Flory s tent *: 2.0 - 3.0 Pa tients with mechanical heart valve *: 2.5 - 3.5 Patients with flex-stent *: 3 .0 - 4.0(*) = communications representative's suggested range Is patient on anticoagulants? UnknownTHROMBOPLASTIN TIME [id number] 06:06:00 Test Item Value Reference Range Interpretation Comments THROMBOPLASTIN TIME 33.6 SECONDS 22.5-35.3 N *Therap eutic level PARTIAL (test code = for hep alberto: 1.5 - PTT) 2.5 times the average patient value of 30.0 seconds. The aP TT tet should not be used to evaluat e low moleculat weigh t heparin anticoagulant therapy. Is patient on anticoagulants? [id number] 18:06:00 Test Item Value Reference Range Interpretation Comments TROPONIN-I (test < 0.04 NG/ML 0.00-0.06 N - The use of serial code = TROPI) sampling and t esting protocol is a recommended pra ctice.- An elevated tro ponin level alone is often not sufficient for diagnosis of myocardial infarction.Resu lts of this assay meth od may be falsely depress ed orelevated if p atient is taking high dos es of Biotin. ACUTE HEPATITIS [id number] 09:11:00 Test Item Value Reference Range Interpretation Comments AB HEPATITIS A IGM Negative Negative (test code = HAVMAB) AG HEPATITIS B Negative Negative SURFACE (test code = HBSAG) AB HEPATITIS B CORE Negative Negative IGM (test code = HBCMAB) AB HEPATITIS C (test > 11.0 0.0-0.9 H INFCE R esult Units: s/co code = HCVAB) ratio Negative : < 0.8 Indeterminate: 0.8 - 0.9 Positive: > 0.9 The CDC recommends that a positive HCV an tibody result be follo wed up with a HCV Nucl eic Acid Amplification t est (240477).Perfor med At: HD [facility] [id number] [place], [place] [id number] maira Miller MD Ph:[phone] COMPREHENSIVE METABOLIC [id number] 06:10:00 Test Item Value Reference Range Interpretation Comments SODIUM (test code = 138 MMOL/L 133-145 N NA) POTASSIUM (test code = 3.5 MMOL/L 3.6-5.2 L K) CHLORIDE (test code = 106 MMOL/L 100-108 N CL) CARBON DIOXIDE (test 27 MMOL/L 22-32 N code = CO2) GLUCOSE (test code = 83 MG/DL 65-99 N Results of this GLU) assay method ma y be falsely depress ed orelevated if patient is taki ng sulfasalazine. BLOOD UREA NITROGEN 15 MG/DL 6-20 N (test code = BUN) GLOMERULAR FILTRATION 138 58-135 H Report ing units: RATE (test code = GFR) mL/mi n/1.73m\S\2 (Modified MDRD Formula) CREATININE (test code 0.49 MG/DL 0.60-1.00 L = CREAT) TOTAL PROTEIN (test 6.9 G/DL 6.4-8.2 N code = PROT) ALBUMIN (test code = 2.5 G/DL 3.4-5.0 L ALB) GLOBULIN (test code = 4.4 G/DL 1.5-3.8 H GLOB) ALBUMIN/GLOBULIN RATIO 0.6 1.1-2.2 L (test code = A/G) CALCIUM (test code = 7.7 MG/DL 8.7-10.5 L CA) BILIRUBIN TOTAL (test 0.5 MG/DL 0.0-1.0 N code = BILT) SGOT/AST (test code = 108 Units/L 15-37 H Result s of this AST) assay method ma y be falsely depress ed orelevated if patient is taki ng sulfasalazine. SGPT/ALT (test code = 132 Units/L 30-65 H Result s of this ALT) assay method ma y be falsely depress ed orelevated if patient is taki ng sulfasalazine. ALKALINE PHOSPHATASE 95 Units/L 50-136 N TOTAL (test code = ALKP) [id number] 06:10:00 Test Item Value Reference Range Interpretation Comments MAGNESIUM (test code = MAG) 1.9 MG/DL 1.8-2.4 N PROTHROMBIN [id number] 05:53:00 Test Item Value Reference Range Interpretation Comments PROTHROMBIN TIME 13.8 SECONDS 9.6-12.3 H PATIENT (test code = PTP) INTERNATIONAL NORMAL 1.22 Recomme nded INR range RATIO (test code = (warfarin therapy): INR) 2.0 - 3.0INR (International Normalized Rati o) should beused w hen interpreting or al anticoaglulant therapy. For at rial fibrillation an d treatment orprevention of deep vein thrombosis . Patients with Palmaz-Flory s tent *: 2.0 - 3.0 Pa tients with mechanical heart valve *: 2.5 - 3.5 Patients with flex-stent *: 3 .0 - 4.0(*) = communications representative's suggested range Is patient on anticoagulants? UnknownTHROMBOPLASTIN TIME [id number] 05:53:00 Test Item Value Reference Range Interpretation Comments THROMBOPLASTIN TIME 33.1 SECONDS 22.5-35.3 N *Therap eutic level PARTIAL (test code = for hep alberto: 1.5 - PTT) 2.5 times the average patient value of 30.0 seconds. The aP TT tet should not be used to evaluat e low moleculat weigh t heparin anticoagulant therapy. Is patient on anticoagulants? UnknownCBC W/AUTO [id number] 05:51:00 Test Item Value Reference Range Interpretation Comments WHITE BLOOD CELL (test code = 9.00 x10 3/uL 4.80-10.80 N WBC) RED BLOOD CELL (test code = 4.02 x10 6/uL 4.2-5.4 L RBC) HEMOGLOBIN (test code = HGB) 11.9 G/DL 12.0-16.0 L HEMATOCRIT (test code = HCT) 36.2 % 37-47 L MEAN CELL VOLUME (test code = 90.0 FL 81-99 N MCV) MEAN CELL HGB (test code = MCH) 29.6 PG 27-31 N MEAN CELL HGB CONCENTRATION 32.9 G/DL 33-37 L (test code = MCHC) RED CELL DISTRIBUTION WIDTH 13.2 % 11.5-14.5 N (test code = RDW) PLATELET COUNT (test code = 150 x10 3/uL 150-450 N PLT) MEAN PLATELET VOLUME (test code 10.1 FL 7.4-10.4 N = MPV) NEUTROPHIL % (test code = NT%) 65.3 % 42-86 N IMMATURE GRANULOCYTE % (test 2.2 % 0.0-2.0 H code = IG%) LYMPHOCYTE % (test code = LY%) 21.7 % 24-44 L MONOCYTE % (test code = MO%) 7.6 % 0.0-4.0 H EOSINOPHIL % (test code = EO%) 2.6 % 0.0-2.7 N BASOPHIL % (test code = BA%) 0.6 % 0.0-0.5 H NUCLEATED RBC % (test code = 0.0 % 0.0-0.0 N NRBC%) NEUTROPHIL # (test code = NT#) 5.89 x10 3/uL 1.8-7.7 N IMMATURE GRANULOCYTE # (test 0.20 x10 3/uL 0.00-0.03 H code = IG#) LYMPHOCYTE # (test code = LY#) 1.95 x10 3/uL 1.0-4.8 N MONOCYTE # (test code = MO#) 0.68 x10 3/uL 0.0-0.8 N EOSINOPHIL # (test code = EO#) 0.23 x10 3/uL 0.0-0.5 N BASOPHIL # (test code = BA#) 0.05 x10 3/uL 0.0-0.2 N NUCLEATED RBC # (test code = 0.0 X10 3/uL 0.0-0.2 N NRBC#) PROTHROMBIN [id number] 06:55:00 Test Item Value Reference Range Interpretation Comments PROTHROMBIN TIME 16.0 SECONDS 9.6-12.3 H PATIENT (test code = PTP) INTERNATIONAL NORMAL 1.41 Recomme nded INR range RATIO (test code = (warfarin therapy): INR) 2.0 - 3.0INR (International Normalized Rati o) should beused w hen interpreting or al anticoaglulant therapy. For at rial fibrillation an d treatment orprevention of deep vein thrombosis . Patients with Palmaz-Flory s tent *: 2.0 - 3.0 Pa tients with mechanical heart valve *: 2.5 - 3.5 Patients with flex-stent *: 3 .0 - 4.0(*) = communications representative's suggested range Is patient on anticoagulants? UnknownTHROMBOPLASTIN TIME [id number] 06:55:00 Test Item Value Reference Range Interpretation Comments THROMBOPLASTIN TIME 38.0 SECONDS 22.5-35.3 H *Therap eutic level PARTIAL (test code = for hep alberto: 1.5 - PTT) 2.5 times the average patient value of 30.0 seconds. The aP TT tet should not be used to evaluat e low moleculat weigh t heparin anticoagulant therapy. Is patient on anticoagulants? UnknownCOMPREHENSIVE METABOLIC [id number] 06:45:00 Test Item Value Reference Range Interpretation Comments SODIUM (test code = 134 MMOL/L 133-145 N NA) POTASSIUM (test code = 4.0 MMOL/L 3.6-5.2 N K) CHLORIDE (test code = 101 MMOL/L 100-108 N CL) CARBON DIOXIDE (test 25 MMOL/L 22-32 N code = CO2) GLUCOSE (test code = 102 MG/DL 65-99 H Results of this GLU) assay method rd bai be falsely depress ed orelevated if patient is taki ng sulfasalazine. BLOOD UREA NITROGEN 10 MG/DL 6-20 N (test code = BUN) GLOMERULAR FILTRATION 97 58-135 N Report ing units: RATE (test code = GFR) mL/mi n/1.73m\S\2 (Modified MDRD Formula) CREATININE (test code 0.67 MG/DL 0.60-1.00 N = CREAT) TOTAL PROTEIN (test 7.4 G/DL 6.4-8.2 N code = PROT) ALBUMIN (test code = 2.7 G/DL 3.4-5.0 L ALB) GLOBULIN (test code = 4.7 G/DL 1.5-3.8 H GLOB) ALBUMIN/GLOBULIN RATIO 0.6 1.1-2.2 L (test code = A/G) CALCIUM (test code = 7.6 MG/DL 8.7-10.5 L CA) BILIRUBIN TOTAL (test 0.9 MG/DL 0.0-1.0 N code = BILT) SGOT/AST (test code = 140 Units/L 15-37 H Result s of this AST) assay method rd bai be falsely depress ed orelevated if patient is taki ng sulfasalazine. SGPT/ALT (test code = 177 Units/L 30-65 H Result s of this ALT) assay method rd bai be falsely depress ed orelevated if patient is taki ng sulfasalazine. ALKALINE PHOSPHATASE 93 Units/L 50-136 N TOTAL (test code = ALKP) [id number] 06:45:00 Test Item Value Reference Range Interpretation Comments MAGNESIUM (test code = MAG) 2.1 MG/DL 1.8-2.4 N CBC W/AUTO [id number] 06:37:00 Test Item Value Reference Range Interpretation Comments WHITE BLOOD CELL (test code = 16.66 x10 3/uL 4.80-10.80 H WBC) RED BLOOD CELL (test code = 4.22 x10 6/uL 4.2-5.4 N RBC) HEMOGLOBIN (test code = HGB) 12.7 G/DL 12.0-16.0 N HEMATOCRIT (test code = HCT) 37.2 % 37-47 N MEAN CELL VOLUME (test code = 88.2 FL 81-99 N MCV) MEAN CELL HGB (test code = 30.1 PG 27-31 N MCH) MEAN CELL HGB CONCENTRATION 34.1 G/DL 33-37 N (test code = MCHC) RED CELL DISTRIBUTION WIDTH 13.2 % 11.5-14.5 N (test code = RDW) PLATELET COUNT (test code = 137 x10 3/uL 150-450 L PLT) MEAN PLATELET VOLUME (test 10.0 FL 7.4-10.4 N code = MPV) NEUTROPHIL % (test code = NT%) 78.7 % 42-86 N IMMATURE GRANULOCYTE % (test 1.7 % 0.0-2.0 N code = IG%) LYMPHOCYTE % (test code = LY%) 14.3 % 24-44 L MONOCYTE % (test code = MO%) 5.0 % 0.0-4.0 H EOSINOPHIL % (test code = EO%) 0.1 % 0.0-2.7 N BASOPHIL % (test code = BA%) 0.2 % 0.0-0.5 N NUCLEATED RBC % (test code = 0.0 % 0.0-0.0 N NRBC%) NEUTROPHIL # (test code = NT#) 13.11 x10 3/uL 1.8-7.7 H IMMATURE GRANULOCYTE # (test 0.28 x10 3/uL 0.00-0.03 H code = IG#) LYMPHOCYTE # (test code = LY#) 2.38 x10 3/uL 1.0-4.8 N MONOCYTE # (test code = MO#) 0.84 x10 3/uL 0.0-0.8 H EOSINOPHIL # (test code = EO#) 0.01 x10 3/uL 0.0-0.5 N BASOPHIL # (test code = BA#) 0.04 x10 3/uL 0.0-0.2 N NUCLEATED RBC # (test code = 0.0 X10 3/uL 0.0-0.2 N NRBC#) AG STREPTOCOCCUS [id number] 00:05:00 Test Item Value Reference Range Interpretation Comments AG STREPTOCOCCUS PNEUMO POSITIVE NEGATIVE A POSI TIVE FOR (test code = STREPPNAG) PNEU MOCOCCAL PNEUMONIA. LEGIONELLA ANTIGEN [id number] 00:05:00 Test Item Value Reference Range Interpretation Comments LEGIONELLA ANTIGEN NEGATIVE Negative Presumpti ve NEGATIVE for URINE (test code = L. pneumo nphila serogroup LEGAGUR) 1 antigenin the urine, suggesting no c urrent, or past infection. Infection due to Legionel la cannot be ruled out si nce otherserogroups and species may cau se disease, antige n may not bepresent in ea rly detection, and the level of antigen pres entin the urine may be be low the detection limit of the test. PROCALCITONIN (PCT)2019-12-04 19:20:00 Test Item Value Reference Range Interpretation Comments PROCALCITONIN (PCT) (test code = 1.77 ng/mL 0.00-0.50 H PROCAL) - US ABDOMEN [id number] 19:16:00 Patient Name: IMER CHRISTIAN Unit No: [id number] EXAMS: CPT CODE: [id number] US ABDOMEN [id number] - US ABDOMEN LTD 12/04/2019 6:03 PM Indication: Elevated liver enzymes. Hepatitis C FINDINGS: The liver is heterogeneously hyperechoic with some mild microlobulations, consistent with cirrhosis. The gallbladder contains a 2 cm stone along with sludge and some mild hydrops. No wall thickening or pericholecystic fluid. No biliary dilatation. Impression: Mild cirrhosis changes. Cholelithiasis and sludge. at 1916 Reported and signed by: Ryan Landon MD CC: Court Garza DO Technologist: Shania Joe Trnscrbd D/ (1915) NoniE Orig Print D/T: S: 12/04/2019 (1918) Probe: [facility] NAME: IMER CHRISTIAN [address] PHYS: BHAAN[address] - [address] [place] [address] : 1975 AGE: 44 SEX: F LOC: TENISHA 2 PHONE #: [phone] EXAM DATE: 12/04/2019 STATUS: ADM IN FAX #: RAD NO: Page 1 Signed [id number] 19:00:00 Test Item Value Reference Range Interpretation Comments ACETAMINOPHEN (test < 1 MCG/ML 10-30 L Acetamin ophen is code = ACET) possibly toxic at levels of: 1. m ore than 150 MCG/ML 4 hours post trent stion. 2. more than 50 MCG/ML 12 hours post ingestion. LACTIC [id number] 18:58:00 Test Item Value Reference Range Interpretation Comments LACTIC ACID (test code = LACT) 1.7 MMOL/L 0.5-2.2 N SED [id number] 18:52:00 Test Item Value Reference Range Interpretation Comments SED RATE (test code = SEDW) 29 MM/HR 0-20 H - XR CHEST 1 [id number] 18:26:00 Patient Name: IMER CHRISTIAN Unit No: [id number] EXAMS: CPT CODE: [id number] XR CHEST 1 V 81451 Reason: pnuemonia - XR CHEST 1 V 12/04/2019 6:00 PM Indication: Pneumonia COMPARISON: 1147 hours F INDINGS: Slightly denser alveolar consolidation left mid and lower lung. No change otherwise. at 1826 Reported and signed by: Ryan Landon MD CC: Court Garza DO Technologist: Kerwin FREY Trscrpt Dt/ (1825)Chirag Orig Print D/T: S: 12/04/2019 (1828) [facility] NAME: IMER CHRISTIAN [address] PH[address]: [address] - [address] [place] [place] [address] : 1975 AGE: 44 SEX: F LOC: TENISHA 2 PHONE #: [phone] EXAM DATE: 12/04/2019 STATUS: ADM IN FAX #: RAD NO: DC Dt: PAGE 1 Signed ReportDRUG OF ABUSE SCREEN [id number] 17:12:00 Test Item Value Reference Interpretation Comments Range UR COCAINE (test NEGATIVE NEGATIVE code = COCAU) UR MDMA (test code = NEGATIVE NEGATIVE MDMAQLU) UR CANNABINOIDS NEGATIVE NEGATIVE (test code = CANU) UR AMPHETAMINE (test NEGATIVE NEGATIVE code = AMPHU) UR BARBITURATE QUAL NEGATIVE NEGATIVE (test code = BARBQLU) UR BENZODIAZEPINE NEGATIVE NEGATIVE (test code = BENZU) UR OPIATES QUAL POSITIVE NEGATIVE A If confirmat ory testing (test code = required, conta ct OPIAQLU) laboratory. UR PHENCYCLIDINE NEGATIVE NEGATIVE Urine Drug Abuse Screen (PCP) (test code = provides preliminary PHENCU) results thatmay be confirmed by jossue baltazar methods (i.e., GC/MS) at community hospital. Results of scre en may not be usedin crimi nal justice, job performance or professionalcre dential review, or infa nt custody issues. Negativ e [place] Level ng/ml ------- ----- Cocaine 3 00 Methamphetamine (Ecstacy) 500 Cannabinoid s (THC) 50 Amphetamine 100 0 Barbiturates 20 0 Benzodiazepines 200 Opiates 300 Phe ncyclidine (PCP) 25 C REACTIVE [id number] 15:31:00 Test Item Value Reference Range Interpretation Comments C REACTIVE PROTEIN (test code = 4.0 MG/DL < 0.9 H CRP) [id number] 15:21:00 Test Item Value Reference Range Interpretation Comments PHOSPHOROUS (test code = PHOS) 2.8 MG/DL 2.5-4.9 N - CTA CHEST FOR [id number] 15:08:00 Patient Name: IMER CHRISTIAN Unit No: [id number] EXAMS: CPT CODE: [id number] CTA CHEST FOR PE [id number] Reason: PE PROTOCOL - CTA CHEST FOR PE 12/04/2019 1:54 PM Indication: Coughing up blood COMPARISON: None TECHNIQUE: Scanning on PE protocol with 60 mL Isovue-370 IV with 3-D MIPS reconstructionsreviewed. FINDINGS: The pulmonary and show is diagnostic out to 4th order branches, in which I see no filling defects to suggest pulmonary embolism. The aorta looks normal caliber with no dissection. The lung windows show patchy alveolar consolidation in the posterior segment KARYN and in all segments of the LLL. Whether this is pulmonary hemorrhage or pneumonia, inciting the hemoptysis, I cannot differentiate on CT. I see no effusion. Slight prominence to the left hilar lymphatic tissue. The spleen is also enlarged at 13 cm. 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 Impression: No sign of PE. Left lung infiltrates per above. Splenomegaly. at 1508 Reported and signed by: Ryan Landon MD CC: Og Woodard MDTechnologist: Abhijeet Oro CT Trscrpt Dt/ ([id number])t.SDR.PKE Orig Print D/T: S: 12/04/2019 (5003) CTDI: DLP: [facility] NAME: IMER CHRISTIAN [address] [facility] PHYS: [place] [address] : 1975 AGE: 44 SEX: F LOC: SIMON PHONE #: [phone] EXAM DATE: 12/04/2019 STATUS: REG ER FAX #: RAD NO: DC Dt: PAGE 1 Signed ReportLACTIC ACID [id number] 14:16:00 Test Item Value Reference Range Interpretation Comments LACTIC ACID POC 1.44 MMOL/L 0.90-1.70 N Performed by certified (test code = LACTP) dicer operator at [facility] PROTHROMBIN [id number] 13:06:00 Test Item Value Reference Range Interpretation Comments PROTHROMBIN TIME 14.2 SECONDS 9.6-12.3 H PATIENT (test code = PTP) INTERNATIONAL NORMAL 1.25 Recomme nded INR range RATIO (test code = (warfarin therapy): INR) 2.0 - 3.0INR (International Normalized Rati o) should beused w hen interpreting or al anticoaglulant therapy. For at rial fibrillation an d treatment orprevention of deep vein thrombosis . Patients with Palmaz-Flory s tent *: 2.0 - 3.0 Pa tients with mechanical heart valve *: 2.5 - 3.5 Patients with flex-stent *: 3 .0 - 4.0(*) = communications representative's suggested range Is patient on anticoagulants? UnknownTHROMBOPLASTIN TIME [id number] 13:06:00 Test Item Value Reference Range Interpretation Comments THROMBOPLASTIN TIME 37.6 SECONDS 22.5-35.3 H *Therap eutic level PARTIAL (test code = for hep alberto: 1.5 - PTT) 2.5 times the average patient value of 30.0 seconds. The aP TT tet should not be used to evaluat e low moleculat weigh t heparin anticoagulant therapy. Is patient on anticoagulants? UnknownBASIC METABOLIC [id number] 12:54:00 Test Item Value Reference Range Interpretation Comments SODIUM (test code = 133 MMOL/L 133-145 N NA) POTASSIUM (test code = 4.2 MMOL/L 3.6-5.2 N K) CHLORIDE (test code = 99 MMOL/L 100-108 L CL) CARBON DIOXIDE (test 28 MMOL/L 22-32 N code = CO2) GLUCOSE (test code = 106 MG/DL 65-99 H Results of this assay GLU) method may be f alsely depressed orele vated if patient is t aking sulfasalazine. BLOOD UREA NITROGEN 10 MG/DL 6-20 N (test code = BUN) GLOMERULAR FILTRATION 92 58-135 N Report ing units: RATE (test code = GFR) mL/mi n/1.73m\S\2 (Modified MDRD Formula) CREATININE (test code 0.70 MG/DL 0.60-1.00 N = CREAT) CALCIUM (test code = 8.0 MG/DL 8.7-10.5 L CA) HEPATIC FUNCTION [id number] 12:54:00 Test Item Value Reference Range Interpretation Comments TOTAL PROTEIN (test 7.9 G/DL 6.4-8.2 N code = PROT) ALBUMIN (test code = 3.1 G/DL 3.4-5.0 L ALB) GLOBULIN (test code = 4.8 G/DL 1.5-3.8 H GLOB) ALBUMIN/GLOBULIN RATIO 0.6 1.1-2.2 L (test code = A/G) BILIRUBIN TOTAL (test 0.9 MG/DL 0.0-1.0 N code = BILT) BILIRUBIN DIRECT (test 0.4 MG/DL 0.0-0.3 H code = BILD) BILIRUBIN INDIRECT 0.5 MG/DL 0.0-0.7 N (test code = BILIND) SGOT/AST (test code = 181 Units/L 15-37 H Result s of this AST) assay method ma y be falsely depress ed orelevated if patient is taki ng sulfasalazine. SGPT/ALT (test code = 226 Units/L 30-65 H Result s of this ALT) assay method ma y be falsely depress ed orelevated if patient is taki ng sulfasalazine. ALKALINE PHOSPHATASE 123 Units/L 50-136 N TOTAL (test code = ALKP) [id number] 12:54:00 Test Item Value Reference Range Interpretation Comments LIPASE (test code = LIP) 127 Units/L 73-393 N [id number] 12:54:00 Test Item Value Reference Range Interpretation Comments MAGNESIUM (test code = MAG) 1.6 MG/DL 1.8-2.4 L NT PRO-BRAIN NATRIURETIC [id number] 12:54:00 Test Item Value Reference Range Interpretation Comments NT PRO-BRAIN 309 PG/ML 0-125 H Results of this assay NATRIURETIC PEPTI (test meth od may be falsely code = PROBNP) depressed ore levated if patient is t aking high doses of B iotin. CPK-MB [id number] 12:54:00 Test Item Value Reference Range Interpretation Comments CK (test code = 327 Units/L 26-192 H CKT) CKMB (test code = 6.6 NG/ML 0.0-3.6 H CKMBT) CKMB INDEX (test 2.0 % 0.0-2.4 N Inconclusiv e of AMI when code = CKMBI) MB Index is no t more than 4. TROPONIN I [id number] 12:30:00 Test Item Value Reference Range Interpretation Comments TROPONIN I RAPID 0.00 NG/ML 0.00-0.08 N Performed b y certified (test code = dicer operator at [facility]) - The use of se rial sampling and te sting protocol is a recommended pra ctice.- An elevated tro ponin level alone is often not sufficient for diagnosis of my ocardial infarction. CBC W/AUTO [id number] 12:26:00 Test Item Value Reference Range Interpretation Comments WHITE BLOOD CELL (test 15.39 x10 3/uL 4.80-10.80 H Res ults called to code = WBC) and read back b y CRUZ VELASQUEZ/ARELIS;1226 , 12/04/19, D.LAB.SP. RED BLOOD CELL (test 4.52 x10 6/uL 4.2-5.4 N code = RBC) HEMOGLOBIN (test code = 13.5 G/DL 12.0-16.0 N HGB) HEMATOCRIT (test code = 39.6 % 37-47 N HCT) MEAN CELL VOLUME (test 87.6 FL 81-99 N code = MCV) MEAN CELL HGB (test 29.9 PG 27-31 N code = MCH) MEAN CELL HGB 34.1 G/DL 33-37 N CONCENTRATION (test code = MCHC) RED CELL DISTRIBUTION 13.1 % 11.5-14.5 N WIDTH (test code = RDW) PLATELET COUNT (test 144 x10 3/uL 150-450 L code = PLT) MEAN PLATELET VOLUME 10.3 FL 7.4-10.4 N (test code = MPV) NEUTROPHIL % (test code 82.2 % 42-86 N = NT%) IMMATURE GRANULOCYTE % 0.8 % 0.0-2.0 N (test code = IG%) LYMPHOCYTE % (test code 10.0 % 24-44 L = LY%) MONOCYTE % (test code = 5.3 % 0.0-4.0 H MO%) EOSINOPHIL % (test code 1.4 % 0.0-2.7 N = EO%) BASOPHIL % (test code = 0.3 % 0.0-0.5 N BA%) NUCLEATED RBC % (test 0.0 % 0.0-0.0 N code = NRBC%) NEUTROPHIL # (test code 12.66 x10 3/uL 1.8-7.7 H = NT#) IMMATURE GRANULOCYTE # 0.12 x10 3/uL 0.00-0.03 H (test code = IG#) LYMPHOCYTE # (test code 1.54 x10 3/uL 1.0-4.8 N = LY#) MONOCYTE # (test code = 0.82 x10 3/uL 0.0-0.8 H MO#) EOSINOPHIL # (test code 0.21 x10 3/uL 0.0-0.5 N = EO#) BASOPHIL # (test code = 0.04 x10 3/uL 0.0-0.2 N BA#) NUCLEATED RBC # (test 0.0 X10 3/uL 0.0-0.2 N code = NRBC#) - XR CHEST 2 [id number] 12:09:00 Patient Name: IMER CHRISTIAN Unit No: [id number] EXAMS: CPT CODE: [id number] XR CHEST 2 V 61825 Reason: chest pain 2 views of the chest showed lingular infiltrate new from previous days exam.Right lung is clear. There is no effusion or pneumothorax. Heart size and vasculature remain within normal limits. IMPRESSION: 1. Developing lingular infiltrate at 1209 Reported and signed by: Alberto Perez MD CC: Og Woodard MD Technologist: Nestor Ochoa RT Trscrpt Dt/ (7662)t.GABY Orig Print D/T: S: 12/04/2019 (0543) [facility] NAME: IMER CHRISTIAN [address] PHYS: [place] [address] : 1975 AGE: 44 SEX: F LOC: SIMON PHONE #: [phone] EXAM DATE: 12/04/2019 STATUS: REG ER FAX #: RAD NO: DC Dt: PAGE 1 Signed Report- XR CHEST 2 [id number] 08:30:00 Patient Name: IMER CHRISTIAN Unit No: [id number] EXAMS: CPT CODE: [id number] XR CHEST 2 V [id number] Reason: dry cough, fever, congestion, VAPES FINDINGS: Two views of the chest show normal heart size and pulmonary vasculature. The lungs are clear bilaterally. There is no focal infiltrate, effusion or pneumothorax. IMPRESSION: No acute cardiopulmonary findings at 0830 Reported and signed by: Alberto Perez MD CC: Bharath Doe MD Technologist: Sade Corrales RT CT Trscrpt Dt/ (829)Prince Orig Print D/T: S: 12/03/2019 (6147) [place] NAME: IMER CHRISTIAN [address] [place] [address] PHYS: Bharath Salamanca MD [address] : 1975 AGE: 44 SEX: F [place], [place] [address] LOC: D.PER PHONE #: [phone] EXAM DATE: 12/03/2019 STATUS: REG ER FAX #: RAD NO: DC Dt: PAGE 1 Signed Report UA RFLX MICROSCOPIC [id number] 10:17:00 Test Item Value Reference Range Interpretation Comments UA COLOR (test code ORANGE YELLOW = COLU) UA APPEARANCE (test CLEAR CLEAR code = APPU) UA GLUCOSE DIPSTICK NEGATIVE mg/dL NEGATIVE (test code = DGLUU) UA BILIRUBIN 1+ NEGATIVE A Not able to rul e DIPSTICK (test code out fals e positive; = BILU) No confirmatory test. UA KETONE DIPSTICK NEGATIVE mg/dL NEGATIVE (test code = KETU) UA SPECIFIC GRAVITY 1.015 1.001-1.035 N (test code = SGU) UA BLOOD DIPSTICK NEGATIVE NEGATIVE (test code = BRIELLE) UA PH DIPSTICK (test 6.5 5.5-7.0 N code = KINGS) UA PROTEIN DIPSTICK NEGATIVE mg/dL NEGATIVE (test code = PROU) UA UROBILINOGEN 12.0 mg/dL NORMAL A DIPSTICK (test code = URO) UA NITRITE DIPSTICK NEGATIVE NEGATIVE (test code = EVANGELIST) UA LEUKOCYTE NEGATIVE NEGATIVE ESTERASE DIPSTICK (test code = LEUU) UA COMMENT (test VOLUME 10-12 ML code = COMU) URINE SPECIMEN Clean Catch DESCRIPTION (test code = UASPEC) UA WBC (test code = < 10 #/hpf <10 WBCU) UA SQUAMOUS CELLS 20 - 40 #/lpf <100 (test code = SQU) UA CULTURE NEEDED? Criteria not (test code = UACULT) met Indication for culture: Dysuria/FrequencyURINE SOURCE: Clean CatchUA RFLX MICROSCOPIC [id number] 09:01:00 Test Item Value Reference Range Interpretation Comments UA COLOR (test code ORANGE YELLOW = COLU) UA APPEARANCE (test CLEAR CLEAR code = APPU) UA GLUCOSE DIPSTICK NEGATIVE mg/dL NEGATIVE (test code = DGLUU) UA BILIRUBIN 1+ NEGATIVE A Not able to rul e DIPSTICK (test code out fals e positive; = BILU) No confirmatory test. UA KETONE DIPSTICK NEGATIVE mg/dL NEGATIVE (test code = KETU) UA SPECIFIC GRAVITY 1.015 1.001-1.035 N (test code = SGU) UA BLOOD DIPSTICK NEGATIVE NEGATIVE (test code = BRIELLE) UA PH DIPSTICK (test 6.5 5.5-7.0 N code = KINGS) UA PROTEIN DIPSTICK NEGATIVE mg/dL NEGATIVE (test code = PROU) UA UROBILINOGEN 12.0 mg/dL NORMAL A DIPSTICK (test code = URO) UA NITRITE DIPSTICK NEGATIVE NEGATIVE (test code = EVANGELIST) UA LEUKOCYTE NEGATIVE NEGATIVE ESTERASE DIPSTICK (test code = LEUU) UA COMMENT (test VOLUME 10-12 ML code = COMU) URINE SPECIMEN Clean Catch DESCRIPTION (test code = UASPEC) UA WBC (test code = #/hpf <10 WBCU) UA SQUAMOUS CELLS #/lpf <100 (test code = SQU) UA CULTURE NEEDED? (test code = UACULT) Indication for culture: Dysuria/FrequencyURINE SOURCE: Clean CatchGLYCOSYLATED HEMOGLOBIN (HA1C)2019-05-22 10:10:00 Test Item Value Reference Range Interpretation Comments GLYCOSYLATED HEMOGLOBIN (HA1C) 5.6 % TOT HB 4.5-6.2 N (test code = GLYHGB) LIPID PROFILE (CORONARY RISK)2019-05-22 09:12:00 Test Item Value Reference Range Interpretation Comments TRIGLYCERIDES (test 42 MG/DL 30-200 N code = TRIG) CHOLESTEROL (test code 101 MG/DL 122-200 L = CHOL) CHOLESTEROL/HDL RATIO 2.1 1.5-4.5 N 1. Ini tial (test code = CHOLHDL) classi fication based on total choles terol: <200 mg/dl Jacinda rable cholesterol 200 -239 mg/dl Borderlin e high risk cholestero l >240 mg/dl High risk cholesterol2. I nitial classification based on LDL choleste rol: <130 mg/dl Jacinda rable LDL cholesterol 130-159 mg/dl Borderline high risk LDL >159 mg/dl High risk LDL choles terol3. HDL < 35 mg/dl represent incre ased CHD risk; HDL > 60 mg/dl represent decreased CHD r isk.4. Chol/HDL > 5.0 represent incre ased CHD risk in men ; Chol/HDL > 4.5 represent incre ased CHD risk in wom en. HDL CHOLESTEROL (test 48 MG/DL 40-60 N code = HDL) LIPOPROTEIN LDL (test 45 MG/DL 62-130 L code = LDL) LIPOPROTEIN VLDL (test 8 MG/DL 3-60 N code = VLDL) RAPID PLASMA [id number] 08:57:00 Test Item Value Reference Range Interpretation Comments RAPID PLASMA REAGIN (test code = Nonreactive Nonreactive RPR) UA RFLX [id number] 17:35:00 Test Item Value Reference Range Interpretation Comments UA COLOR (test code = COLU) DARK YELLOW YELLOW UA APPEARANCE (test code = HAZY CLEAR APPU) UA GLUCOSE DIPSTICK (test NEGATIVE mg/dL NEGATIVE code = DGLUU) UA BILIRUBIN DIPSTICK (test NEGATIVE NEGATIVE code = BILU) UA KETONE DIPSTICK (test code NEGATIVE mg/dL NEGATIVE = KETU) UA SPECIFIC GRAVITY (test 1.015 1.001-1.035 N code = SGU) UA BLOOD DIPSTICK (test code NEGATIVE NEGATIVE = BRIELLE) UA PH DIPSTICK (test code = 6.5 5.5-7.0 N KINGS) UA PROTEIN DIPSTICK (test 15 mg/dL NEGATIVE A code = PROU) UA UROBILINOGEN DIPSTICK 8.0 mg/dL NORMAL A (test code = URO) UA NITRITE DIPSTICK (test NEGATIVE NEGATIVE code = EVANGELIST) UA LEUKOCYTE ESTERASE TRACE NEGATIVE A DIPSTICK (test code = LEUU) UA COMMENT (test code = COMU) VOLUME 10-12 ML URINE SPECIMEN DESCRIPTION Clean Catch (test code = UASPEC) UA [id number] 17:35:00 Test Item Value Reference Range Interpretation Comments UA WBC (test code = WBCU) < 10 #/hpf <10 UA RBC (test code = RBCU) 0-2 #/hpf NONE SEEN A UA BACTERIA (test code = BACU) 1+ #/hpf NONE SEEN UA SQUAMOUS CELLS (test code = > 100 #/lpf <100 A SQU) DRUG OF ABUSE SCREEN [id number] 17:32:00 Test Item Value Reference Interpretation Comments Range UR COCAINE (test POSITIVE NEGATIVE A If confirma tory testing code = COCAU) required, cont act laboratory. UR MDMA (test code = POSITIVE NEGATIVE A If conf irmatory testing MDMAQLU) required, conta ct laboratory. UR CANNABINOIDS NEGATIVE NEGATIVE (test code = CANU) UR AMPHETAMINE (test POSITIVE NEGATIVE A If conf irmatory testing code = AMPHU) required, cont act laboratory. UR BARBITURATE QUAL NEGATIVE NEGATIVE (test code = BARBQLU) UR BENZODIAZEPINE POSITIVE NEGATIVE A If confirm atory testing (test code = BENZU) required , contact laboratory. UR OPIATES QUAL NEGATIVE NEGATIVE (test code = OPIAQLU) UR PHENCYCLIDINE NEGATIVE NEGATIVE Urine Drug Abuse Screen (PCP) (test code = provides preliminary PHENCU) results thatmay be confirmed by jossue baltazar methods (i.e., GC/MS) at community hospital. Results of scre en may not be usedin crimi nal justice, job performance or professionalcre dential review, or infa nt custody issues. Negativ e [place] Level ng/ml ------- ----- Cocaine 3 00 Methamphetamine (Ecstacy) 500 Cannabinoid s (THC) 50 Amphetamine 100 0 Barbiturates 20 0 Benzodiazepines 200 Opiates 300 Phencyclidi ne (PCP) 25 UR HCG [id number] 17:29:00 Test Item Value Reference Range Interpretation Comments UR HCG QUAL (test NEGATIVE NEGATIVE False nega tives may occur code = HCGQLU) when levels o f hCGare below 20 mIU/ml. When is still suspec cm, a new specimenshould be obtained after 48 hours and re-tested.If wa iting 48 hours is not me dically advisable,the t est result should be confi rmed using aquantitative h CG assay. UA RFLX [id number] 17:25:00 Test Item Value Reference Range Interpretation Comments UA COLOR (test code = COLU) DARK YELLOW YELLOW UA APPEARANCE (test code = HAZY CLEAR APPU) UA GLUCOSE DIPSTICK (test NEGATIVE mg/dL NEGATIVE code = DGLUU) UA BILIRUBIN DIPSTICK (test NEGATIVE NEGATIVE code = BILU) UA KETONE DIPSTICK (test code NEGATIVE mg/dL NEGATIVE = KETU) UA SPECIFIC GRAVITY (test 1.015 1.001-1.035 N code = SGU) UA BLOOD DIPSTICK (test code NEGATIVE NEGATIVE = BRIELLE) UA PH DIPSTICK (test code = 6.5 5.5-7.0 N KINGS) UA PROTEIN DIPSTICK (test 15 mg/dL NEGATIVE A code = PROU) UA UROBILINOGEN DIPSTICK 8.0 mg/dL NORMAL A (test code = URO) UA NITRITE DIPSTICK (test NEGATIVE NEGATIVE code = EVANGELIST) UA LEUKOCYTE ESTERASE TRACE NEGATIVE A DIPSTICK (test code = LEUU) UA COMMENT (test code = COMU) VOLUME 10-12 ML URINE SPECIMEN DESCRIPTION Clean Catch (test code = UASPEC) UA [id number] 17:25:00 Test Item Value Reference Range Interpretation Comments UA WBC (test code = WBCU) #/hpf <10 UA RBC (test code = RBCU) #/hpf NONE SEEN UA SQUAMOUS CELLS (test code = SQU) #/lpf <100 UA RFLX [id number] 17:25:00 Test Item Value Reference Range Interpretation Comments UA COLOR (test code = COLU) DARK YELLOW YELLOW UA APPEARANCE (test code = HAZY CLEAR APPU) UA GLUCOSE DIPSTICK (test NEGATIVE mg/dL NEGATIVE code = DGLUU) UA BILIRUBIN DIPSTICK (test NEGATIVE NEGATIVE code = BILU) UA KETONE DIPSTICK (test code NEGATIVE mg/dL NEGATIVE = KETU) UA SPECIFIC GRAVITY (test 1.015 1.001-1.035 N code = SGU) UA BLOOD DIPSTICK (test code NEGATIVE NEGATIVE = BRIELLE) UA PH DIPSTICK (test code = 6.5 5.5-7.0 N KINGS) UA PROTEIN DIPSTICK (test 15 mg/dL NEGATIVE A code = PROU) UA UROBILINOGEN DIPSTICK 8.0 mg/dL NORMAL A (test code = URO) UA NITRITE DIPSTICK (test NEGATIVE NEGATIVE code = EVANGELIST) UA LEUKOCYTE ESTERASE TRACE NEGATIVE A DIPSTICK (test code = LEUU) UA COMMENT (test code = COMU) VOLUME 10-12 ML URINE SPECIMEN DESCRIPTION Clean Catch (test code = UASPEC) UA [id number] 17:25:00 Test Item Value Reference Range Interpretation Comments UA WBC (test code = WBCU) #/hpf <10 UA RBC (test code = RBCU) #/hpf NONE SEEN UA SQUAMOUS CELLS (test code = SQU) #/lpf <100 COMPREHENSIVE METABOLIC [id number] 17:24:00 Test Item Value Reference Range Interpretation Comments SODIUM (test code = 138 MMOL/L 133-145 NEW VISI T.VERIFIED NA) BY REPEATED CORNELIUS LYSIS BY Davy Madera05/21/19 POTASSIUM (test code = 4.0 MMOL/L 3.6-5.2 N K) CHLORIDE (test code = 103 MMOL/L 100-108 N CL) CARBON DIOXIDE (test 31 MMOL/L 22-32 N code = CO2) GLUCOSE (test code = 83 MG/DL 65-99 N Results of this GLU) assay method rd y be falsely depress ed orelevated if patient is taki ng sulfasalazine. BLOOD UREA NITROGEN 17 MG/DL 6-20 N (test code = BUN) GLOMERULAR FILTRATION 95 58-135 N Report ing units: RATE (test code = GFR) mL/mi n/1.73m\S\2 (Modified MDRD Formula) CREATININE (test code 0.68 MG/DL 0.60-1.00 N = CREAT) TOTAL PROTEIN (test 7.3 G/DL 6.4-8.2 N code = PROT) ALBUMIN (test code = 3.3 G/DL 3.4-5.0 L ALB) GLOBULIN (test code = 4.0 G/DL 1.5-3.8 H GLOB) ALBUMIN/GLOBULIN RATIO 0.8 1.1-2.2 L (test code = A/G) CALCIUM (test code = 8.4 MG/DL 8.7-10.5 L CA) BILIRUBIN TOTAL (test 0.8 MG/DL 0.0-1.0 N code = BILT) BILIRUBIN INDIRECT 0.6 MG/DL 0.0-0.7 N (test code = BILIND) SGOT/AST (test code = 123 Units/L 15-37 H Result s of this AST) assay method ma y be falsely depress ed orelevated if patient is taki ng sulfasalazine. SGPT/ALT (test code = 230 Units/L 30-65 H Result s of this ALT) assay method ma y be falsely depress ed orelevated if patient is taki ng sulfasalazine. ALKALINE PHOSPHATASE 103 Units/L 50-136 N TOTAL (test code = ALKP) HEPATIC FUNCTION [id number] 17:24:00 Test Item Value Reference Range Interpretation Comments BILIRUBIN DIRECT (test code = BILD) 0.2 MG/DL 0.0-0.3 N THYROID STIMULATING [id number] 17:24:00 Test Item Value Reference Range Interpretation Comments THYROID STIMULATING 0.34 0.42-5.47 L Micro-In ternational HORMONE (test code = TSH) Un its/L [id number] 17:24:00 Test Item Value Reference Range Interpretation Comments ACETAMINOPHEN (test < 1 MCG/ML 10-30 L Acetamin ophen is code = ACET) possibly toxic at levels of: 1. m ore than 150 MCG/ML 4 hours post trent stion. 2. more than 50 MCG/ML 12 hours post ingestion. [id number] 17:24:00 Test Item Value Reference Range Interpretation Comments SALICYLATE (test code = < 3 MG/DL 0-20 N Refe rence Range: TEMO) Analgesic...... ...... ...... < 10 mg/ dl Therapeutic.... ...... ...... 15-20 mg /dl Mild Toxicity....... ...... . > 30 mg/dl Se kate Toxicity....... ..... > 60 mg/dl [id number] 17:24:00 Test Item Value Reference Range Interpretation Comments ALCOHOL (test code = < 3 MG/DL 0-10 N 0 - 10 : Should be ALC) interpreted as NEGATIVE. 11 - 50: None t o mild euphoria. 51 - 100: Mild influence on vi lai and dark adaptation . > 80: Legal intoxicat ion; Depression of C NS; Increasing degr ee of poisoning. > 40 0: Fatalities repo rted. Results are for medical purposes only a nd not forlegal or emp loyment evaluative purp oses. COMPREHENSIVE METABOLIC [id number] 16:45:00 Test Item Value Reference Range Interpretation Comments SODIUM (test code = 138 MMOL/L 133-145 NEW VISI T.VERIFIED BY NA) REPEATED ANALYS IS BY Jose D Madera05/21/19 POTASSIUM (test code = 4.0 MMOL/L 3.6-5.2 N K) CHLORIDE (test code = 103 MMOL/L 100-108 N CL) CARBON DIOXIDE (test 31 MMOL/L 22-32 N code = CO2) GLUCOSE (test code = 83 MG/DL 65-99 N Results of this assay GLU) method may be f alsely depressed orele vated if patient is t aking sulfasalazine. BLOOD UREA NITROGEN 17 MG/DL 6-20 N (test code = BUN) GLOMERULAR FILTRATION 95 58-135 N Report ing units: RATE (test code = GFR) mL/mi n/1.73m\S\2 (Modified MDRD Formula) CREATININE (test code 0.68 MG/DL 0.60-1.00 N = CREAT) TOTAL PROTEIN (test G/DL 6.4-8.2 code = PROT) ALBUMIN (test code = G/DL 3.4-5.0 ALB) GLOBULIN (test code = G/DL 1.5-3.8 GLOB) ALBUMIN/GLOBULIN RATIO 1.1-2.2 (test code = A/G) CALCIUM (test code = 8.4 MG/DL 8.7-10.5 L CA) BILIRUBIN TOTAL (test MG/DL 0.0-1.0 code = BILT) SGOT/AST (test code = Units/L 15-37 AST) SGPT/ALT (test code = Units/L 30-65 ALT) ALKALINE PHOSPHATASE Units/L 50-136 TOTAL (test code = ALKP) HEPATIC FUNCTION [id number] 16:45:00 Test Item Value Reference Range Interpretation Comments BILIRUBIN DIRECT (test code = BILD) MG/DL 0.0-0.3 THYROID STIMULATING [id number] 16:45:00 Test Item Value Reference Range Interpretation Comments THYROID STIMULATING HORMONE (test code 0.42-5.47 = TSH) [id number] 16:45:00 Test Item Value Reference Range Interpretation Comments ACETAMINOPHEN (test code = ACET) MCG/ML 10-30 [id number] 16:45:00 Test Item Value Reference Range Interpretation Comments SALICYLATE (test code = TEMO) MG/DL 0-20 [id number] 16:45:00 Test Item Value Reference Range Interpretation Comments ALCOHOL (test code = ALC) MG/DL 0-10 CBC W/AUTO [id number] 16:34:00 Test Item Value Reference Range Interpretation Comments WHITE BLOOD CELL (test code = 6.24 x10 3/uL 4.80-10.80 N WBC) RED BLOOD CELL (test code = 4.50 x10 6/uL 4.2-5.4 N RBC) HEMOGLOBIN (test code = HGB) 14.0 G/DL 12.0-16.0 N HEMATOCRIT (test code = HCT) 40.0 % 37-47 N MEAN CELL VOLUME (test code = 88.9 FL 81-99 N MCV) MEAN CELL HGB (test code = MCH) 31.1 PG 27-31 H MEAN CELL HGB CONCENTRATION 35.0 G/DL 33-37 N (test code = MCHC) RED CELL DISTRIBUTION WIDTH 12.1 % 11.5-14.5 N (test code = RDW) PLATELET COUNT (test code = 202 x10 3/uL 150-450 N PLT) MEAN PLATELET VOLUME (test code 10.1 FL 7.4-10.4 N = MPV) NEUTROPHIL % (test code = NT%) 51.0 % 42-86 N LYMPHOCYTE % (test code = LY%) 33.5 % 24-44 N MONOCYTE % (test code = MO%) 7.4 % 0.0-4.0 H EOSINOPHIL % (test code = EO%) 7.5 % 0.0-2.7 H BASOPHIL % (test code = BA%) 0.6 % 0.0-0.5 H NEUTROPHIL # (test code = NT#) 3.18 x10 3/uL 1.8-7.7 N LYMPHOCYTE # (test code = LY#) 2.09 x10 3/uL 1.0-4.8 N MONOCYTE # (test code = MO#) 0.46 x10 3/uL 0.0-0.8 N EOSINOPHIL # (test code = EO#) 0.47 x10 3/uL 0.0-0.5 N BASOPHIL # (test code = BA#) 0.04 x10 3/uL 0.0-0.2 N DRUG OF ABUSE SCREEN [id number] 16:05:00 Test Item Value Reference Interpretation Comments Range UR COCAINE (test NEGATIVE NEGATIVE code = COCAU) UR MDMA (test code = POSITIVE NEGATIVE A If conf irmatory testing MDMAQLU) required, conta ct laboratory. UR CANNABINOIDS NEGATIVE NEGATIVE (test code = CANU) UR AMPHETAMINE (test POSITIVE NEGATIVE A If conf irmatory testing code = AMPHU) required, cont act laboratory. UR BARBITURATE QUAL NEGATIVE NEGATIVE (test code = BARBQLU) UR BENZODIAZEPINE POSITIVE NEGATIVE A If confirm atory testing (test code = BENZU) required , contact laboratory. UR OPIATES QUAL NEGATIVE NEGATIVE (test code = OPIAQLU) UR PHENCYCLIDINE NEGATIVE NEGATIVE Urine Drug Abuse Screen (PCP) (test code = provides preliminary PHENCU) results thatmay be confirmed by jossue baltazar methods (i.e., GC/MS) at [facility]. Results of scre en may not be usedin crimi nal justice, job performance or professionalcre dential review, or infa nt custody issues. Negativ e [place] Level ng/ml ------- ----- Cocaine 300 Methamphetamine (Ecstacy) 500 Cannabinoid s (THC) 50 Amphetamine 10 00 Barbiturates 20 0 Benzodiazepines 200 Opiates 300 Phencyclid ine (PCP) 25 [id number] 16:01:00 Test Item Value Reference Range Interpretation Comments AMMONIA (test code = 30 UMOL/L 11-35 N Results of this assay AMM) method may be f alsely depressed orele vated if patient is taki ng sulfasalazine. UR HCG [id number] 15:57:00 Test Item Value Reference Range Interpretation Comments UR HCG QUAL (test NEGATIVE NEGATIVE False nega tives may occur code = HCGQLU) when levels o f hCGare below 20 mIU/ml. When is still suspec cm, a new specimenshould be obtained after 48 hours and re-tested.If wa iting 48 hours is not me dically advisable,the t est result should be confi rmed using aquantitative h CG assay. D-DIMER [id number] 15:57:00 Test Item Value Reference Range Interpretation Comments D-DIMER QUANT < 100 D-DU 0-400 N Monica Medina e values (test code = presented in un its of DDIMER) mass (ng/mL)of D-dimer, also known as D -dimer units (D-DU).* Cut-off: 400 ng/mL Resul ts of the D-Dimer test sh ould always be inter pretedin conjunction wit h the patient's medic al history, clinicalpresent ation, and other findings. Clinical diagnosis shoul dnot be based on the re sults of D-Dimer alone.P atients with a distal D VT may have a normal D -Dimer result. COMPREHENSIVE METABOLIC [id number] 15:55:00 Test Item Value Reference Range Interpretation Comments SODIUM (test code = 142 MMOL/L 133-145 N NA) POTASSIUM (test code = 4.0 MMOL/L 3.6-5.2 N K) CHLORIDE (test code = 106 MMOL/L 100-108 N CL) CARBON DIOXIDE (test 32 MMOL/L 22-32 N code = CO2) GLUCOSE (test code = 103 MG/DL 65-99 H Results of this GLU) assay method ma y be falsely depress ed orelevated if patient is taki ng sulfasalazine. BLOOD UREA NITROGEN 32 MG/DL 6-20 H (test code = BUN) GLOMERULAR FILTRATION 83 58-135 N Report ing units: RATE (test code = GFR) mL/mi n/1.73m\S\2 (Modified MDRD Formula) CREATININE (test code 0.77 MG/DL 0.60-1.00 N = CREAT) TOTAL PROTEIN (test 7.1 G/DL 6.4-8.2 N code = PROT) ALBUMIN (test code = 3.3 G/DL 3.4-5.0 L ALB) GLOBULIN (test code = 3.8 G/DL 1.5-3.8 N GLOB) ALBUMIN/GLOBULIN RATIO 0.9 1.1-2.2 L (test code = A/G) CALCIUM (test code = 8.2 MG/DL 8.7-10.5 L CA) BILIRUBIN TOTAL (test 0.6 MG/DL 0.0-1.0 N code = BILT) SGOT/AST (test code = 153 Units/L 15-37 H Result s of this AST) assay method ma y be falsely depress ed orelevated if patient is taki ng sulfasalazine. SGPT/ALT (test code = 292 Units/L 30-65 H Result s of this ALT) assay method ma y be falsely depress ed orelevated if patient is taki ng sulfasalazine. ALKALINE PHOSPHATASE 114 Units/L 50-136 N TOTAL (test code = ALKP) [id number] 15:55:00 Test Item Value Reference Range Interpretation Comments LIPASE (test code = LIP) 206 Units/L 73-393 N [id number] 15:55:00 Test Item Value Reference Range Interpretation Comments MAGNESIUM (test code = MAG) 1.6 MG/DL 1.8-2.4 L [id number] 15:55:00 Test Item Value Reference Range Interpretation Comments ALCOHOL (test code = < 3 MG/DL 0-10 N 0 - 10 : Should be ALC) interpreted as NEGATIVE. 11 - 50: None t o mild euphoria. 51 - 100: Mild influence on vi lai and dark adaptation . > 80: Legal intoxicat ion; Depression of C NS; Increasing degr ee of poisoning. > 40 0: Fatalities repo rted. Results are for medical purposes only a nd not forlegal or emp loyment evaluative purp oses. COMPREHENSIVE METABOLIC [id number] 15:51:00 Test Item Value Reference Range Interpretation Comments SODIUM (test code = 142 MMOL/L 133-145 N NA) POTASSIUM (test code = 4.0 MMOL/L 3.6-5.2 N K) CHLORIDE (test code = 106 MMOL/L 100-108 N CL) CARBON DIOXIDE (test 32 MMOL/L 22-32 N code = CO2) GLUCOSE (test code = 103 MG/DL 65-99 H Results of this assay GLU) method may be f alsely depressed orele vated if patient is t aking sulfasalazine. BLOOD UREA NITROGEN 32 MG/DL 6-20 H (test code = BUN) GLOMERULAR FILTRATION 83 58-135 N Report ing units: RATE (test code = GFR) mL/mi n/1.73m\S\2 (Modified MDRD Formula) CREATININE (test code 0.77 MG/DL 0.60-1.00 N = CREAT) TOTAL PROTEIN (test G/DL 6.4-8.2 code = PROT) ALBUMIN (test code = G/DL 3.4-5.0 ALB) GLOBULIN (test code = G/DL 1.5-3.8 GLOB) ALBUMIN/GLOBULIN RATIO 1.1-2.2 (test code = A/G) CALCIUM (test code = 8.2 MG/DL 8.7-10.5 L CA) BILIRUBIN TOTAL (test MG/DL 0.0-1.0 code = BILT) SGOT/AST (test code = Units/L 15-37 AST) SGPT/ALT (test code = Units/L 30-65 ALT) ALKALINE PHOSPHATASE Units/L 50-136 TOTAL (test code = ALKP) [id number] 15:51:00 Test Item Value Reference Range Interpretation Comments LIPASE (test code = LIP) Units/L 73-393 [id number] 15:51:00 Test Item Value Reference Range Interpretation Comments MAGNESIUM (test code = MAG) MG/DL 1.8-2.4 [id number] 15:51:00 Test Item Value Reference Range Interpretation Comments ALCOHOL (test code = ALC) MG/DL 0-10 CBC W/AUTO [id number] 15:40:00 Test Item Value Reference Range Interpretation Comments WHITE BLOOD CELL (test code = 5.95 x10 3/uL 4.80-10.80 N WBC) RED BLOOD CELL (test code = 4.29 x10 6/uL 4.2-5.4 N RBC) HEMOGLOBIN (test code = HGB) 13.4 G/DL 12.0-16.0 N HEMATOCRIT (test code = HCT) 38.7 % 37-47 N MEAN CELL VOLUME (test code = 90.2 FL 81-99 N MCV) MEAN CELL HGB (test code = MCH) 31.2 PG 27-31 H MEAN CELL HGB CONCENTRATION 34.6 G/DL 33-37 N (test code = MCHC) RED CELL DISTRIBUTION WIDTH 12.1 % 11.5-14.5 N (test code = RDW) PLATELET COUNT (test code = 175 x10 3/uL 150-450 N PLT) MEAN PLATELET VOLUME (test code 9.8 FL 7.4-10.4 N = MPV) NEUTROPHIL % (test code = NT%) 50.7 % 42-86 N LYMPHOCYTE % (test code = LY%) 34.5 % 24-44 N MONOCYTE % (test code = MO%) 6.6 % 0.0-4.0 H EOSINOPHIL % (test code = EO%) 7.7 % 0.0-2.7 H BASOPHIL % (test code = BA%) 0.5 % 0.0-0.5 N NEUTROPHIL # (test code = NT#) 3.02 x10 3/uL 1.8-7.7 N LYMPHOCYTE # (test code = LY#) 2.05 x10 3/uL 1.0-4.8 N MONOCYTE # (test code = MO#) 0.39 x10 3/uL 0.0-0.8 N EOSINOPHIL # (test code = EO#) 0.46 x10 3/uL 0.0-0.5 N BASOPHIL # (test code = BA#) 0.03 x10 3/uL 0.0-0.2 N
--- NOTE | 2023-09-06 00:30 | ER ---
Nurse's Notes [facility] Name: Brandy Barraza Age: 47 yrs Sex: Female : 1975 Arrival Date: 09/05/2023 Time: 22:20 Bed IW1 Private MD: Diagnosis: Presentation: 09/05 22:28 Chief complaint: Patient states: RIGHT LEG PAIN THAT RADIATES DOWN LEG AND IT'S CAUSING jj7 HER TO HAVE CP, SHAKINESS AND HOT FLASHES. Coronavirus screen: At this time, the client does not indicate any symptoms associated with coronavirus-19. Ebola Screen: No symptoms or risks identified at this time. Initial Sepsis Screen: Does the patient meet any 2 criteria? No. Patient's initial sepsis screen is negative. Does the patient have a suspected source of infection? No. Patient's initial sepsis screen is negative. Risk Assessment: Do you want to hurt yourself or someone else? Patient reports no desire to harm self or others. Onset of symptoms was September 04, 2023. 22:28 Method Of Arrival: Wheelchair jj7 22:28 Acuity: CINTHIA 3 jj7 Triage Assessment: 22:31 General: Appears in no apparent distress. uncomfortable, Behavior is calm, cooperative, jj7 appropriate for age. Pain: Complains of pain in right leg. Cardiovascular: No deficits noted. RACE RELATIONS ADVISER: 22:31 3, Living 2, LMP 08/25/2022, unknown jj7 Historical: - Allergies: 22:31 No Known Allergies; jj7 - PMHx: 22:31 Gall Stones; Hepatitis C; jj7 - PSHx: 22:31 None; jj7 - Immunization history:: Client reports receiving the 2nd dose of the Covid vaccine. - Social history:: Smoking status: Patient reports the use of cigarette tobacco products, 5 CIGS A DAY. Assessment: 09/06 00:28 Reassessment: pt not in lobby. Vital Signs: 09/05 22:28 BP 135 / 85; Pulse 81; Resp 17; Temp 97.9; Pulse Ox 99% ; Weight 65.77 kg; Height 5 ft. jj7 5 in. ; Pain 8/10; 22:28 Body Mass Index 24.13 (65.77 kg, 165.1 cm) jj7 22:28 Pain Scale: Adult j7 ED Course: 22:25 Patient arrived in ED. gm2 22:31 Triage completed. jj7 22:31 Arm band placed on right wrist. j7 22:46 Maury Bobo PA is PHCP. cp 22:46 Maury Escoto MD is Attending Physician. cp Administered Medications: No medications were administered Outcome: 09/06 00:29 Patient left the ED. kl Signatures: Georgiana Felix RN RN kl Page, Corey, PA PA cp Johnson, Juwairiyah, RN RN jjFouzia Murillo gm2
[2023-09-06 01:53] VITALS: BP 135/85; TEMP 97.9; O2SAT 99
== END 2023-09-06 00:29 | disposition left against medical advice (07) ==
LOC: ER 22:20
DX: Z53.21 Procedure and treatment not carried out due to patient leaving prior to being seen by health care provider (principal)
CPT/HCPCS: 99281

== ENCOUNTER → 2024-02-14 | Emergency (ER) | payer SELFPAY ==
[~2024-02-14] MED LIST: NA CHLORIDE 0.9% 1,000 ML ONE; TDAP (DIPHTH,PERTUSS(ACELL),TET VAC) 0.5 ML VIAL IMVAC ONE; THIAMINE 200 MG/2 ML INJ ONE; WATER FOR INJ,STERILE 10 ML ONE; ZIPRASIDONE MESYLA 20 MG/VIAL IM ONE
--- OUTSIDE RECORDS SUMMARY | 2024-02-14 21:54 | XMS REPORT | Continuity of Care Document ---
Author Name Unknown Address [address] [facility] [address] [place] [address] [facility] Address [address] [facility] [address] [place] [address] Care Team Providers Care Field Support Engineer Name Role Phone PCP, PATIENT DOES NOT HAVE A Primary Care Physic randal Unavailable LATASHA SEVILLA Attending Clinician Unavailable DEBBIE POZO Attending Clinician Unavailable LEANNA MORALES Attending Clinician Unavailable LOIS GARCIA Attending Clinician Unavailable MD LEELA Attending Clinician Unavailab le LAB90 Attending Clinician Unavailable AVERY ELIZABETH Attending Clinician Unavailable ANNA DIAZ Attending Clinician Unavailable Anna Diaz MD Attending Clinician [phone] Doctor Unassigned, [place] Attending Clinician U Jerman Martinez Attending Clinician Unavaila Garth Cruz Attending Clinician Unavaila aman Physician, No Primary or Family Admitting Clinic randal Unavailable Berto Johansen Admitting Clinician Unavailable Payers Payer Name Policy Type Policy Number Effective Date Expirati on Date Source 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 [place] [id number] 2023 00:00:00 HIM BCBS BLUE ADVANTAGE O [id number] 2022 00:00:00 Problems Condition Name Condition Details Condition Category Status Onset Date Resolution Date Last Treatment Date Treating Clinician Comments Source Menopausal symptoms Menopausal symptoms Disease Active 2022-11 00:00: 00 Ana Seybold - Externa l Irregular menses Irregular menses Disease Active 2022-11 00:00: 00 Ana Seybold - Externa l Nexplanon in place Nexplanon in place Disease Active 2022-11 00:00: 00 Ana Seybold - Externa l History of hepatitis C History of hepatitis C Disease Active 2022-11 00:00: 00 Ana Seybold - Externa l JOSEMANUEL (generaliz ed anxiety disorder) JOSEMANUEL (generaliz ed anxiety disorder) Disease Active 2022-11 00:00: 00 Ana Seybold - Externa l Telangiect isabella Telangiect isabella Disease Active 2022-11 00:00: 00 Ana Seybold - Externa l 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 Disease Active 2022-11 00:00: 00 Ana Seybold - Externa l Redness of skin Redness of skin Disease Active 2022-11 00:00: 00 Ana Seybold - Externa l Poor circulatio n of extremity Poor circulatio n of extremity Disease Active 2022-11 00:00: 00 Ana Seybold - Externa l Primary hypertensi on Primary hypertensi on Disease Active 2022-11 00:00: 00 Ana Seybold - Externa l Liver disease Liver disease Disease Active [facility] Chronic hepatitis C virus infection Chronic hepatitis C virus infection Disease Active [facility] Allergies, Adverse Reactions, Alerts Allergy Name Allergy Type Status Severity Reaction(s) Onset Date Inactive Date Treating Clinician Comments Source No Known Allergie s DA Active U 05-19 00:00: 00 [facility] No Known Allergie s DA Active U 05-19 00:00: 00 [facility] No Known Allergie s DA Active U 2017-0 06-13 00:00: 00 [facility] NO KNOWN ALLERGIE S Drug Class Active [facility] Social History Social Habit Start Date Stop Date Quantity Comments Source Sexual orientation Basil morales Judi - External History of tobacco use Cigarette Smoker Ana jasso - External Alcohol intake 2023-10-02 00:00:00 2023-10-02 00:00:00 Lifetime non-drinker (finding) Ana Lau - External History of Social function 2023-09-15 00:00:00 2023-09-15 00:00:00 Ana Lau - External Cigarettes smoked current (pack per day) - Reported 2023-09-15 00:00:00 2023-09-15 00:00:00 Ana Lau - External Cigarette pack-years 2023-09-15 00:00:00 2023-09-15 00:00:00 Ana Lau - External Tobacco use and exposure 2023-09-15 00:00:00 2023-09-15 00:00:00 Smokeless tobacco non-user Ana Lau - External Exposure to SARS-CoV-2 (event) 2023-01-08 00:00:00 2023-01-18 09:32:00 Not sure [facility] Sex Assigned At 1975 00:00:00 1975 00:00:00 Ana Lau - External Smoking Status Start Date Stop Date Source Tobacco smoking consumption unknown [facility] Smokes tobacco daily 2023-09-15 00:00:00 Ana Lau - External Medications Ordered Medication Name Filled Medication Name Start Date Stop Date Current Medication? Ordering Clinician Indication Dosage Frequency Signature (SIG) Comments Components Source Venlafaxine HCl (Effexor XR) 75 MG oral Capsule 24 Hour Sustained Release 2022-11 14:25: 27 09-30 00:00 :00 No every 24 hours. Ana Morse Externa l Escitalopra m Oxalate 20 MG oral Tablet 2022-11 14:25: 17 09-30 00:00 :00 No 20mg 1 tablet (20 mg total) every 24 hours. Ana colmenares Methadone HCl 40 MG oral TABLET SOLUBLE 2022-11 14:25: 14 Yes 40mg 1 tablet (40 mg total) every 12 hours. Ana colmenares Gabapentin 300 MG oral Capsule 2022-11 14:24: 56 09-30 00:00 :00 No 300mg 1 capsule (300 mg total) every 6 (six) hours. Ana colmenares Propranolol HCl 20 MG oral Tablet 2022-11 00:00: 00 Yes [id number] 20mg [id number] 3D Take 1 tablet (20 mg total) by mouth 3 times daily as needed. Ana colmenares Ibuprofen (MOTRIN) 200 MG oral Tablet 2022-11 026 14:24: 19 Yes 3-4 tablets Orally once daily as needed Ana colmenares Ibuprofen (MOTRIN) 800 MG oral Tablet 818 00:00: 00 Yes TAKE ONE (1) TABLET(S) BY MOUTH EVERY SIX HOURS WITH FOOD. Ana colmenares venlafaxine XR 150 mg 24 hr capsule 2-13 00:00: 00 Yes 150mg Take 1 capsule by mouth in the morning. [facility] venlafaxine XR 150 mg 24 hr capsule 2-13 00:00: 00 Yes 150mg Take 1 capsule by mouth in the morning. [facility] Venlafaxine HCl 150 MG oral Capsule 24 Hour Sustained Release 2-13 00:00: 00 Yes 150mg Take 1 capsule (150 mg total) by mouth daily. Ana colmenares spironolact one 50 mg tablet 12-17 00:00: 00 Yes TAKE ONE (1) TABLET(S) BY MOUTH IN THE MORNING AND TWO (2) AT NIGHT. [facility] venlafaxine XR 75 mg 24 hr capsule 12-17 00:00: 00 Yes 75mg Take 1 capsule by mouth in the morning. [facility] spironolact one 50 mg tablet 12-17 00:00: 00 Yes TAKE ONE (1) TABLET(S) BY MOUTH IN THE MORNING AND TWO (2) AT NIGHT. [facility] venlafaxine XR 75 mg 24 hr capsule 12-17 00:00: 00 Yes 75mg Take 1 capsule by mouth in the morning. [facility] Spironolact one 50 MG oral Tablet 12-17 00:00: 00 Yes TAKE ONE (1) TABLET(S) BY MOUTH IN THE MORNING AND TWO (2) AT NIGHT. Ana Lau - Externa l Vital Signs Vital Name Observation Time Observation Value Comments S ource Heart rate 2023-09-30 20:18:00 87 /min Patel Lau - External Body temperature 2023-09-30 20:18:00 36.22 Dana Ana glennlouisa - External Respiratory rate 2023-09-30 20:18:00 15 /min Ana Lau - External Body height 2023-09-30 20:18:00 165.1 cm Carole herron Seglennlouisa - External Body weight 2023-09-30 20:18:00 79.379 kg Carole Lau - External BMI 2023-09-30 20:18:00 29.12 kg/m2 Carole herron Seglennlouisa - External Systolic blood pressure 2023-09-30 20:18:00 124 mm[Hg] Ana Sarabiamargareth ld - External Diastolic blood pressure 2023-09-30 20:18:00 78 mm[Hg] Ana Sarabiamargareth ld - External Systolic blood pressure 2023-01-18 15:58:00 121 mm[Hg] [facility] Diastolic blood pressure 2023-01-18 15:58:00 80 mm[Hg] [facility] Heart rate 2023-01-18 15:58:00 72 /min [facility] Body temperature 2023-01-18 15:58:00 36.72 Dana [facility] Respiratory rate 2023-01-18 15:58:00 16 /min [facility] Body height 2023-01-18 15:58:00 165.1 cm [facility] Body weight 2023-01-18 15:58:00 81.92 kg [facility] BMI 2023-01-18 15:58:00 30.05 kg/m2 [facility] Oxygen saturation in Arterial blood by Pulse oximetry 2023-01-18 15:58:00 97 /min [facility] Procedures Procedure Date / Time Performed Performing Clinicia n Source URINE CULTURE 2023-01-18 16:54:00 [facility] CONSENT/REFUSAL FOR DIAGNOSIS AND TREATMENT 2023-01-18 15:33:37 Doctor Unassigned, [place] [facility] ASSIGNMENT OF BENEFITS 2023-01-18 15:33:21 Docto r Unassigned, [place] [facility] POCT URINALYSIS W/O SPECIFIC GRAVITY 2023-01-18 00:00:00 Anna Diaz [facility] Encounters Start Date/Time End Date/Time Encounter Type Admission Type Attending [facility] Care Department Encounter ID Source 2019-12-04 11:10:00 Inpatient [facility] ER [id number] [facility] 2019-12-03 07:17:00 Inpatient [facility] ER [id number] [facility] 2024-02-14 00:00:00 2024-02-14 00:00:00 Outpatient LATASHA SEVILLA [id number] [facility] 2024-02-06 00:00:00 2024-02-06 00:00:00 Outpatient LATASHA SEVILLA [id number] [facility] 2024-02-03 00:00:00 2024-02-03 00:00:00 Outpatient LATASHA SEVILLA [id number] [facility] 2023-12-28 00:00:00 2023-12-28 00:00:00 Outpatient LATASHA SEVILLA [id number] [facility] 2023-12-09 00:00:00 2023-12-09 00:00:00 Outpatient LATASHA SEVILLA [id number] [facility] 2023-11-29 00:00:00 2023-11-29 00:00:00 Outpatient LATASHA SEVILLA [id number] Ana Seybold 2023-11-23 14:15:00 2023-11-23 14:15:00 Outpatient SÁNCHEZDEBBIE AAN MCCORD [id number] Ana Seybold 2023-11-23 00:00:00 2023-11-23 00:00:00 Outpatient LATASHA SEVILLA [id number] Ana Seybold 2023-11-17 15:15:00 2023-11-17 15:15:00 Outpatient SÁNCHEZ DBEBIE MCCORD [id number] Ana Seybold 2023-11-07 00:00:00 2023-11-07 00:00:00 Outpatient ANDREW LEANNAARABELLA MCCORD [id number] Ana Seybold 2023-11-03 00:00:00 2023-11-03 00:00:00 Outpatient LATASHA SEVILLA [id number] Ana Seybold 2023-10-31 00:00:00 2023-10-31 00:00:00 Outpatient LATASHA SEVILLA [id number] Ana Seybold 2023-10-07 10:30:00 2023-10-07 10:30:00 Outpatient DEBBIE POZO [id number] Ana Seybold 2023-10-06 00:00:00 2023-10-06 00:00:00 Outpatient PREDENISETiannaLOIS [id number] Ana Seybold 2023-10-05 00:00:00 2023-10-05 00:00:00 Outpatient PREZASLOIS ANA MCCORD [id number] Ana Seybold 2023-10-03 00:00:00 2023-10-03 00:00:00 Outpatient MD ANA JETT [id number] Ana Seybold 2023-10-03 00:00:00 2023-10-03 00:00:00 Outpatient LATASHA SEVILLA [id number] Ana Seybold 2023-09-30 15:15:00 2023-09-30 15:15:00 Outpatient LAB90 ANA MCCORD [id number] Ana Seybold 2023-09-30 14:30:00 2023-09-30 14:30:00 Outpatient LATASHA SEVILLA [id number] Ana Sarabialouisa 2023-09-16 14:30:00 2023-09-16 14:30:00 Outpatient LATASHA SEVILLA [id number] Ana Lau 2023-02-11 10:30:00 2023-02-11 10:30:00 Outpatient R ANNA DIAZ [facility] [id number] [facility] 2023-01-21 00:00:00 2023-01-21 00:00:00 Outpatient R MYRA ANNA [facility] [id number] [facility] 2023-01-18 10:30:00 2023-01-18 11:02:40 Office Visit Anna Diaz [facility] 1..[id number] [facility] 2023-01-18 10:30:00 2023-01-18 11:02:40 Outpatient R MYRA ANNA [facility] [id number] [facility] 2023-01-18 00:00:00 2023-01-18 00:00:00 Orders Only Doctor Unassigned, [facility] [facility] 1..[id number] [facility] 2022-05-14 14:26:00 2022-05-17 11:45:00 Emergency EM AmanuelJerman banegas [facility] ER [id number] [facility] 2022-05-14 14:26:00 2022-05-17 11:45:00 Emergency EM AmanuelJerman [facility] [id number] [facility] 2022-03-24 19:55:00 2022-03-24 21:28:00 Emergency EM Garth Loja [facility] [id number] [facility] 2022-03-24 19:55:00 2022-03-24 21:28:00 Emergency EM Garth Loja [facility] [id number] [facility] Results Test Description Test Time Test Comments Results Result Co mments Source [facility]/O SPECIFIC [id number] 16:53:00* Test Item Value Reference Range Interpretation Comme nts POCT PH U (test code = 3254) 7 mg/dl 5-8 POCT U LEUK EST (test code = 3263) negative Negative - Negative POCT U NIT (test code = 3262) negative Negative - Negati ve POCT U PROT (test code = 3259) trace Negative - Negat mk POCT U GLU (test code = 3256) negative Negative - Negati ve POCT U KETONE (test code = 3258) negative Negative - Neg ative POCT U BLD (test code = 3257) 50 Negative - Negati ve [facility] 03:53:00* Test Item Value Reference Range Interpretation Comme nts CK (test code = CKT) 426 Units/L 26-192 H THIS IS A RECOLLECT-PRVS [id number] 13:23:00* Test Item Value Reference Range Interpretation Comme nts CK (test code = CKT) 544 Units/L 26-192 H [id number] 06:29:00* Test Item Value Reference Range Interpretation Comme nts CK (test code = CKT) 675 Units/L 26-192 H [id number] 17:36:00* Test Item Value Reference Range Interpretation Comme nts CK (test code = CKT) 990 Units/L 26-192 H CBC W/AUTO [id number] 17:24:00* Test Item Value Reference Range Interpretation Comme nts WHITE BLOOD CELL (test code = WBC) 8.16 x10 3/uL 4.80-10.80 N RED BLOOD CELL (test code = RBC) 4.12 x10 6/uL 4.2-5.4 L HEMOGLOBIN (test code = HGB) 12.8 G/DL 12.0-16.0 VERIFIED BY REPEATED ANALYSIS BY Daija Betancourt 05/15/22 HEMATOCRIT (test code = HCT) 36.0 % 37-47 L MEAN CELL VOLUME (test code = MCV) 87.4 FL 81-99 N MEAN CELL HGB (test code = MCH) 31.1 PG 27-31 H MEAN CELL HGB CONCENTRATION (test code = MCHC) 35.6 G/DL 33-37 N RED CELL DISTRIBUTION WIDTH (test code = RDW) 13.2 % 11.5-14.5 N PLATELET COUNT (test code = PLT) 126 x10 3/uL 150-450 L MEAN PLATELET VOLUME (test code = MPV) 9.4 FL 7.4-10.4 N NEUTROPHIL % (test code = NT%) 78.9 % 42-86 N IMMATURE GRANULOCYTE % (test code = IG%) 0.6 % 0.0-2.0 N LYMPHOCYTE % (test code = LY%) 13.1 % 24-44 L MONOCYTE % (test code = MO%) 5.4 % 0.0-4.0 H EOSINOPHIL % (test code = EO%) 1.5 % 0.0-2.7 N BASOPHIL % (test code = BA%) 0.5 % 0.0-0.5 N NUCLEATED RBC % (test code = NRBC%) 0.0 % 0.0-0.0 N NEUTROPHIL # (test code = NT#) 6.44 x10 3/uL 1.8-7.7 N IMMATURE GRANULOCYTE # (test code = IG#) 0.05 x10 3/uL 0.00-0.03 H LYMPHOCYTE # (test code = LY#) 1.07 x10 3/uL 1.0-4.8 N MONOCYTE # (test code = MO#) 0.44 x10 3/uL 0.0-0.8 N EOSINOPHIL # (test code = EO#) 0.12 x10 3/uL 0.0-0.5 N BASOPHIL # (test code = BA#) 0.04 x10 3/uL 0.0-0.2 N NUCLEATED RBC # (test code = NRBC#) 0.0 X10 3/uL 0.0-0.2 N [id number] 14:42:00* Test Item Value Reference Range Interpretation Comme nts CK (test code = CKT) 1094 Units/L 26-192 H [id number] 04:55:00* Test Item Value Reference Range Interpretation Comme nts CK (test code = CKT) 1510 Units/L 26-192 H [id number] 00:46:00* Test Item Value Reference Range Interpretation Comme nts CK (test code = CKT) 1683 Units/L 26-192 H LACTIC [id number] 16:06:00* Test Item Value Reference Range Interpretation Comme nts LACTIC ACID (test code = LACT) 0.8 MMOL/L 0.5-2.2 N Coronavirus 2019 nCoV [id number] 15:20:00* Test Item Value Reference Range Interpretation Comme nts Coronavirus 2019 nCoV Bedside (test code = [id number]) Negative Negative ID NOW COVID-19 assay performed on the ID NOW Instrument evelyn rapid molecular in vitro diagnostic test utilizing anisothermal nucleic acid amplification technology intendedfor the qualitative detection of nucleic acid from [id number] viral RNA in direct nasal, nasopharyngeal orthroat swabs and nasal, nasopharyngeal or throat swabseluted in viral transport media from individuals who aresuspected of COVID-19 by their healthcare provider. Negative results should be treated as presumptive and, ifinconsistent with clinical signs and symptoms or necessaryfor patient management, should be tested with differentauthorized or cleared molecular tests. Negative results donot preclude SARS-CoV-2 infection and should not be used asthe sole basis for patient management decisions. Negativeresults should be considered in the context of a patient'srecent exposures, history and presence of clinical signs andsymptoms consistent with COVID-19.Results are for the identification of SARS-CoV-2 RNA.For Use Under an Emergency Use Authorization (EUA) Only Negative results do not preclude SARS-CoV-2 infection andshould not be used as the sole basis for patient managementdecisions. Negative results must be combined with clinicalobservations, patient history, and epidemiologicalinformation . COMPREHENSIVE METABOLIC [id number] 15:19:00* Test Item Value Reference Range Interpretation Comme nts SODIUM (test code = NA) 132 MMOL/L 133-145 L POTASSIUM (test code = K) 3.9 MMOL/L 3.6-5.2 N CHLORIDE (test code = CL) 96 MMOL/L 100-108 L CARBON DIOXIDE (test code = CO2) 26 MMOL/L 22-32 N GLUCOSE (test code = GLU) 110 MG/DL 65-99 H Results of this assay method may be falsely depressed orelevated if patient is taking sulfasalazine. BLOOD UREA NITROGEN (test code = BUN) 31 MG/DL 6-20 H GLOMERULAR FILTRATION RATE (test code = GFR) 47 58-135 L Reporting units: mL/min/1.73m\\S\\2 (Modified MDRD Formula) CREATININE (test code = CREAT) 1.25 MG/DL 0.60-1.00 H TOTAL PROTEIN (test code = PROT) 9.2 G/DL 6.4-8.2 H ALBUMIN (test code = ALB) 4.7 G/DL 3.4-5.0 N GLOBULIN (test code = GLOB) 4.5 G/DL 1.5-3.8 H ALBUMIN/GLOBULIN RATIO (test code = A/G) 1.0 1.1-2.2 L CALCIUM (test code = CA) 9.4 MG/DL 8.7-10.5 N BILIRUBIN TOTAL (test code = BILT) 2.4 MG/DL 0.0-1.0 H SGOT/AST (test code = AST) 91 Units/L 15-37 H Results of this assay method may be falsely depressed orelevated if patient is taking sulfasalazine. SGPT/ALT (test code = ALT) 51 Units/L 30-65 N Results of this assay method may be falsely depressed orelevated if patient is taking sulfasalazine. ALKALINE PHOSPHATASE TOTAL (test code = ALKP) 105 Units/L 50-136 N [id number] 15:19:00* Test Item Value Reference Range Interpretation Comme nts CK (test code = CKT) 2228 Units/L 26-192 H [id number] 15:19:00* Test Item Value Reference Range Interpretation Comme nts ACETAMINOPHEN (test code = ACET) < 1 MCG/ML 10-30 L Acetaminophen is possibly toxic at levels of: 1. more than 150 MCG/ML 4 hours post ingestion. 2. more than 50 MCG/ML 12 hours post ingestion. [id number] 15:19:00* Test Item Value Reference Range Interpretation Comme nts SALICYLATE (test code = TEMO) < 3 MG/DL 0-20 N Reference Range: Analgesic............ ...... < 10 mg/dl Therapeutic.......... ...... 15-20 mg/dl Mild Toxicity............. . > 30 mg/dl Severe Toxicity............ > 60 mg/dl [id number] 15:19:00* Test Item Value Reference Range Interpretation Comme nts ALCOHOL (test code = ALC) < 3 MG/DL 0-10 N 0 - 10: Should b e interpreted as NEGATIVE. 11 - 50: None to mild euphoria. 51 - 100: Mild influence on vision and dark adaptation. > 80: Legal intoxication; Depression of RIVET SPINNER; Increasing degree of poisoning. > 400: Fatalities reported. Results are for medical purposes only and not forlegal or employment evaluative purposes. UA RFLX [id number] 15:16:00* Test Item Value Reference Range Interpretation Comme nts UA COLOR (test code = COLU) YELLOW YELLOW UA APPEARANCE (test code = APPU) HAZY CLEAR UA GLUCOSE DIPSTICK (test code = DGLUU) NEGATIVE mg/dL NEGATIVE UA BILIRUBIN DIPSTICK (test code = BILU) NEGATIVE NEGATIVE UA KETONE DIPSTICK (test cod e = KETU) 5 mg/dL NEGATIVE A UA SPECIFIC GRAVITY (test code = SGU) 1.030 1.001-1.035 N UA BLOOD DIPSTICK (test code = BRIELLE) 1+ NEGATIVE A UA PH DIPSTICK (test code = KINGS) 5.0 5.5-7.0 L UA PROTEIN DIPSTICK (test code = PROU) 30 mg/dL NEGATIVE A UA UROBILINOGEN DIPSTICK (test code = URO) NORMAL mg/dL NORMAL UA NITRITE DIPSTICK (test code = EVANGELIST) NEGATIVE NEGATIVE UA LEUKOCYTE ESTERASE DIPSTICK (test code = LEUU) 25 NEGATIVE A UA COMMENT (test code = COMU) VOLUME 10-12 ML URINE SPECIMEN DESCRIPTION (test code = UASPEC) Clean Catch UA [id number] 15:16:00* Test Item Value Reference Range Interpretation Comme nts UA WBC (test code = WBCU) > 10 #/hpf <10 A UA RBC (test code = RBCU) 0-2 #/hpf NONE SEEN A UA SQUAMOUS CELLS (test code = SQU) 0 - 20 #/lpf <100 UA CULTURE NEEDED? (test cod e = UACULT) Criteria met UA BACTERIA (test code = BACU) 2+ #/hpf NONE SEEN UA AMORPHOUS SEDIMENT (test code = AMORU) FEW #/lpf None seen DRUG OF ABUSE SCREEN [id number] 15:09:00* Test Item Value Reference Range Interpretation Comments UR COCAINE (test code = COCAU) NEGATIVE NEGATIVE UR MDMA (test code = MDMAQLU) POSITIVE NEGATIVE A If confirmatory testing required, contact laboratory. UR CANNABINOIDS (test code = CANU) POSITIVE NEGATIVE A If confirmato ry testing required, contact laboratory. UR AMPHETAMINE (test code = AMPHU) POSITIVE NEGATIVE A If confirmatory testing required, contact laboratory. UR BARBITURATE QUAL (test code = BARBQLU) NEGATIVE NEGATIVE UR BENZODIAZEPINE (test code = BENZU) POSITIVE NEGATIVE A If confirmat ory testing required, contact laboratory. UR OPIATES QUAL (test code = OPIAQLU) NEGATIVE NEGATIVE UR PHENCYCLIDINE (PCP) (test code = PHENCU) NEGATIVE NEGATIVE Urine Drug Abuse Screen provides preliminary results thatmay be confirmed by alternate methods (i.e., GC/MS) at areference laboratory. Results of screen may not be usedin criminal justice, job performance or professionalcredential review, or infant custody issues. Negative [place] Level ng/ml ----- Cocaine 300 Methamphetamine (Ecstacy) 500 Cannabinoids (THC) 50 Amphetamine 1000 Barbiturates 200 Benzodiazepines 200 Opiates 300 Phencyclidine (PCP) 25 UR HCG [id number] 14:59:00* Test Item Value Reference Range Interpretation Comme nts UR HCG QUAL (test code = HCGQLU) NEGATIVE NEGATIVE False negatives may occur when levels of hCGare below 20 mIU/ml. When is still suspected, a new specimenshould be obtained after 48 hours and re-tested.If waiting 48 hours is not medically advisable,the test result should be confirmed using aquantitative hCG assay. CBC W/AUTO [id number] 14:57:00* Test Item Value Reference Range Interpretation Comme nts WHITE BLOOD CELL (test code = WBC) 18.75 x10 3/uL 4.80-10.80 H Results called t o and read back by BRUNA ARITA RN;1457, 05/14/22, D.LAB.AS1. RED BLOOD CELL (test code = RBC) 4.87 x10 6/uL 4.2-5.4 N HEMOGLOBIN (test code = HGB) 15.0 G/DL 12.0-16.0 N HEMATOCRIT (test code = HCT) 42.2 % 37-47 N MEAN CELL VOLUME (test code = MCV) 86.7 FL 81-99 N MEAN CELL HGB (test code = MCH) 30.8 PG 27-31 N MEAN CELL HGB CONCENTRATION (test code = MCHC) 35.5 G/DL 33-37 N RED CELL DISTRIBUTION WIDTH (test code = RDW) 13.3 % 11.5-14.5 N PLATELET COUNT (test code = PLT) 199 x10 3/uL 150-450 N MEAN PLATELET VOLUME (test code = MPV) 9.4 FL 7.4-10.4 N NEUTROPHIL % (test code = NT%) 84.9 % 42-86 N LYMPHOCYTE % (test code = LY%) 8.3 % 24-44 L MONOCYTE % (test code = MO%) 6.3 % 0.0-4.0 H EOSINOPHIL % (test code = EO%) 0.2 % 0.0-2.7 N BASOPHIL % (test code = BA%) 0.3 % 0.0-0.5 N NEUTROPHIL # (test code = NT#) 15.93 x10 3/uL 1.8-7.7 H LYMPHOCYTE # (test code = LY#) 1.56 x10 3/uL 1.0-4.8 N MONOCYTE # (test code = MO#) 1.18 x10 3/uL 0.0-0.8 H EOSINOPHIL # (test code = EO#) 0.03 x10 3/uL 0.0-0.5 N BASOPHIL # (test code = BA#) 0.05 x10 3/uL 0.0-0.2 N BASIC METABOLIC [id number] 21:15:00* Test Item Value Reference Range Interpretation Comme nts SODIUM (test code = NA) 140 MMOL/L 133-145 N POTASSIUM (test code = K) 4.0 MMOL/L 3.6-5.2 N CHLORIDE (test code = CL) 104 MMOL/L 100-108 N CARBON DIOXIDE (test code = CO2) 34 MMOL/L 22-32 H GLUCOSE (test code = GLU) 77 MG/DL 65-99 N Results of this assay method may be falsely depressed orelevated if patient is taking sulfasalazine. BLOOD UREA NITROGEN (test code = BUN) 13 MG/DL 6-20 N GLOMERULAR FILTRATION RATE (test code = GFR) 91 58-135 N Reporting units: mL/min/1.73m\\S\\2 (Modified MDRD Formula) CREATININE (test code = CREAT) 0.70 MG/DL 0.60-1.00 N CALCIUM (test code = CA) 8.3 MG/DL 8.7-10.5 L TROP-I HIGH [id number] 21:15:00* Test Item Value Reference Range Interpretation Comme nts TROP-I HIGH SENSITIVITY (test code = TROPIHS) 10 ng/L < 51 This is a new te st. A transition from TropI to TropIHS. The normal ranges and reporting units have changed. Pleasereview results carefully.Results above 51 for females and 76 for males are consistent with IFCC Committee recommendations to use the 99th percentile of a normal population as a reference decision-limit. - The use of serial sampling and testing protocol is a recommended practive.- An elevated high sensitiveity troponin level alone is often not sufficient for diagnosis of myocardial infarction.- In order to distinguish acute elevations of high sensitivity troponin from other clinical conditions, the Fourth [place] Definition of Myocardial Infarction stresses clinical assessment and demonstration of a rise and/or fall in serial troponin results above the upper reference limit.Results of this assay method may be falsely depressed orelevated if patient is taking high doses of Biotin. UA RFLX MICROSCOPIC [id number] 21:02:00* Test Item Value Reference Range Interpretation Comme nts UA COLOR (test code = COLU) DARK YELLOW YELLOW UA APPEARANCE (test code = APPU) SLIGHTLY CLOUDY CLEAR UA GLUCOSE DIPSTICK (test code = DGLUU) NEGATIVE mg/dL NEGATIVE UA BILIRUBIN DIPSTICK (test code = BILU) NEGATIVE NEGATIVE UA KETONE DIPSTICK (test code = KETU) 5 mg/dL NEGATIVE A UA SPECIFIC GRAVITY (test code = SGU) 1.010 1.001-1.035 N UA BLOOD DIPSTICK (test code = BRIELLE) NEGATIVE NEGATIVE UA PH DIPSTICK (test code = KINGS) 6.5 5.5-7.0 N UA PROTEIN DIPSTICK (test code = PROU) NEGATIVE mg/dL NEGATIVE UA UROBILINOGEN DIPSTICK (test code = URO) 1.0 mg/dL NORMAL UA NITRITE DIPSTICK (test code = EVANGELIST) NEGATIVE NEGATIVE UA LEUKOCYTE ESTERASE DIPSTICK (test code = LEUU) 25 NEGATIVE A UA COMMENT (test code = COMU) VOLUME 10-12 ML URINE SPECIMEN DESCRIPTION (test code = UASPEC) Clean Catch UA WBC (test code = WBCU) < 10 #/hpf <10 UA SQUAMOUS CELLS (test code = SQU) 0 - 20 #/lpf <100 UA CULTURE NEEDED? (test code = UACULT) Criteria not met Indication for culture: Suprapubic PainURINE SOURCE: Clean CatchUA MICROSCOPIC 2022-03-24 21:02:00* Test Item Value Reference Range Interpretation Comme nts UA RBC (test code = RBCU) 0-2 #/hpf NONE SEEN A UA BACTERIA (test code = BACU) RARE #/hpf NONE SEEN Indication for culture: Suprapubic PainURINE SOURCE: Clean CatchUR HCG QUAL 2022-03-24 20:59:00* Test Item Value Reference Range Interpretation Comme nts UR HCG QUAL (test code = HCGQLU) NEGATIVE NEGATIVE False negatives may occur when levels of hCGare below 20 mIU/ml. When is still suspected, a new specimenshould be obtained after 48 hours and re-tested.If waiting 48 hours is not medically advisable,the test result should be confirmed using aquantitative hCG assay. CBC W/AUTO [id number] 20:57:00* Test Item Value Reference Range Interpretation Comme nts WHITE BLOOD CELL (test code = WBC) 4.76 x10 3/uL 4.80-10.80 L RED BLOOD CELL (test code = RBC) 4.20 x10 6/uL 4.2-5.4 N HEMOGLOBIN (test code = HGB) 12.8 G/DL 12.0-16.0 N HEMATOCRIT (test code = HCT) 37.9 % 37-47 N MEAN CELL VOLUME (test code = MCV) 90.2 FL 81-99 N MEAN CELL HGB (test code = MCH) 30.5 PG 27-31 N MEAN CELL HGB CONCENTRATION (test code = MCHC) 33.8 G/DL 33-37 N RED CELL DISTRIBUTION WIDTH (test code = RDW) 13.3 % 11.5-14.5 N PLATELET COUNT (test code = PLT) 112 x10 3/uL 150-450 L MEAN PLATELET VOLUME (test c ode = MPV) 10.1 FL 7.4-10.4 N NEUTROPHIL % (test code = NT%) 51.0 [...] 3/uL 0.0-0.2 N - CT L-SPINE W/O [id number] 20:46:00 [facility] : 1975 Sex: F Patient Name: BRANDY BARRAZA Unit No: [id number] EXAMS: CPT CODE: [id number] CT L-SP INE W/O CONTRAST 78806 Reason: right leg pain and back pain [...] and posterior endplate spondylosis lateralizing to the right resulting in right foraminal narrowing with displacement of [...] Right foraminal narrowing at L3-L4 by degenerative changeswith impingement of the exiting right L3 nerve root sleeve. Spinal canal stenosis at L3-L4 and L4-L5. Encroachment of the L4-L5 and L5-S1 neural foramen by degenerative changes. Recommend further evaluation with MRI [facility] NAME: BRANDY BARRAZA [facility] [address] PHYS: Garth Goss [address] : 1975 AGE: 46 SEX: F [place], [place] [address] LOC: D.PER PHONE #: [phone] EXAM DATE: 03/24/2022 STATUS: REG ER FAX #: RAD NO: DC Dt: PAGE 1 Signed Report (CONTINUED) Patient Name: BRANDY BARRAZA Unit No: [id number] EXAMS: CPT CODE: [id number] CT L-SPINE W/O CONTRAST 40079 (Continued) Reason: right leg pain and back pain at 2045 Reported and signed by: Jenae Roche MD CC: Garth Loja MD Technologist: Susan Le RT CT Trscrpt Dt/ ( 2045)t.SDR.MOP Orig Print D/T: S: 03/24/2022 (2048) CTDI: DLP: [facility] NAME: BRANDY BARRAZA [facility] [address] PHYS: Garth Newell [address] : 1975 AGE: 46SEX: F [place], [place] [address] LOC: D.PER PHONE #: [phone] EXAM DATE: 03/24 STATUS: REG ER FAX #: RAD NO: DC Dt: PAGE 2 Signed Report- XR FEMUR MIN 2 VW [id number] 20:41:00 [facility] 1975 Sex: F Patient Name: BRANDY BARRAZA Unit No: [id number] EXAMS: CPT CODE: [id number] XR FEMUR MIN 2 [place] [address] Reason: right leg pain Examination: Right femur 2 views Location code: H60 Comparison: None Discussion: Clinical history is remarkable for pain. There is no evidence for acute fracture or dislocation. No lytic or blastic lesions identified. No other bony or soft tissue abnormalities are noted. Impression: 1. Normal right femur. at 2040 Reported and signed by: Cristofer Witt MD CC: Garth Loja MD Technologist: Susan Le RT CT Trscrpt Dt/ (2040)t.SDR.VR5 Orig Print D/T: S: 03/24/2022 (2043) [facility] NAME: BRANDY BARRAZA [address] [place] [address] PHYS: SANJUANITA - Garth Loja [address] : 1975 AGE: 46 SEX: F [place], [place] [address] LOC: DLIBERTY PHONE #: [phone] EXAM DATE: 03/24/2022 STATUS: REG ER FAX #: RAD NO: DC Dt: PAGE 1 Signed Report- CT HEAD/BRAIN W/O [id number] 20:21:00 [facility] 1975 Sex: F Patient Name: BRANDY BARRAZA Unit No: [id number] EXAMS: CPT CODE: [id number] CT HEA D/BRAIN W/O CONT 20095 Reason: expressive aphasia EXAMINATION: - CT HEAD/BRAIN W/O CONT. LOCATION:H42. HISTORY: Expressive aphasia, chest pain, palpitations, weakness. COMPARISON: None. TECHNIQUE: Routine CT of the head was performed without intravenous contrast as per protocol. One or more the following dose reduction techniques were used: Automated exposure control, adjustment of mA and/or kVaccording to patient size, and use of iterative reconstruction technique. FINDINGS: Brain Parenchyma: No hemorrhage or infarction. No mass effect or midline shift. Extra Axial Spaces: Unremarkable. Ventricular System: Unremarkable. Osseous Structures: Unremarkable. Visualized Paranasal Sinuses: Unremarkable. IMPRESSION: No CT evidence of acute intracranial abnormality or hemorrhage. at 2020 Reported and signed by: Maricruz Hurt MD CC: Garth Loja MD Technologist: Susan Le RT CT Trscrpt Dt/ (2020)t.SDR.ANS4 Orig Print D/T: S: 03/24/2022 (2023) CTDI: DLP: [facility] NAME: BRANDY BARRAZA [address] [place] [address] PHYS: SANJUANITA - Garth Loja [address] : 1975 AGE: 46 SEX: F [place], [place] [address] LOC: D.PER PHONE #: [phone] EXAM DATE: 03/24/2022 STATUS: PRE ER FAX #: RAD NO: DC Dt: PAGE 1 Signed ReportAB MYCOPLASMA [id number] 03:07:00* Test Item Value Reference Range Interpretation Comme nts AB MYCOPLASMA IGM (test code = MYCOMAB) < 770 U/mL 0-769 Negative <770Cli nically significant amount of M. pneumoniae antibodynot detected. Low Positive 770 - 950M. pneumoniae specific IgM presumptively detected. Itis recommended that another sample be collected 1-2weeks later to assure reactivity. Positive >950Highly significant amount of M. pneumoniae specificIgM antibody detected.Performed At: [facility] [id number] Vinson MD Ph:[phone] COMPREHENSIVE METABOLIC [id number] 06:34:00* Test Item Value Reference Range Interpretation Comme nts SODIUM (test code = NA) 137 MMOL/L 133-145 N POTASSIUM (test code = K) 3.6 MMOL/L 3.6-5.2 N CHLORIDE (test code = CL) 102 MMOL/L 100-108 N CARBON DIOXIDE (test code = CO2) 28 MMOL/L 22-32 N GLUCOSE (test code = GLU) 71 MG/DL 65-99 N Results of this assay method may be falsely depressed orelevated if patient is taking sulfasalazine. BLOOD UREA NITROGEN (test code = BUN) 9 MG/DL 6-20 N GLOMERULAR FILTRATION RATE (test code = GFR) 119 58-135 N Reporting units: mL/min/1.73m\\S\\2 (Modified MDRD Formula) CREATININE (test code = CREAT) 0.56 MG/DL 0.60-1.00 L TOTAL PROTEIN (test code = PROT) 7.6 G/DL 6.4-8.2 N ALBUMIN (test code = ALB) 2.7 G/DL 3.4-5.0 L GLOBULIN (test code = GLOB) 4.9 G/DL 1.5-3.8 H ALBUMIN/GLOBULIN RATIO (test code = A/G) 0.6 1.1-2.2 L CALCIUM (test code = CA) 8.3 MG/DL 8.7-10.5 L BILIRUBIN TOTAL (test code = BILT) 0.5 MG/DL 0.0-1.0 N SGOT/AST (test code = AST) 143 Units/L 15-37 H Results of this assay method may be falsely depressed orelevated if patient is taking sulfasalazine. SGPT/ALT (test code = ALT) 150 Units/L 30-65 H Results of this assay method may be falsely depressed orelevated if patient is taking sulfasalazine. ALKALINE PHOSPHATASE TOTAL (test code = ALKP) 98 Units/L 50-136 N [id number] 06:34:00* Test Item Value Reference Range Interpretation Comme nts MAGNESIUM (test code = MAG) 1.7 MG/DL 1.8-2.4 L CBC W/AUTO [id number] 06:06:00* Test Item Value Reference Range Interpretation Comme nts WHITE BLOOD CELL (test code = WBC) 7.22 x10 3/uL 4.80-10.80 N RED BLOOD CELL (test code = RBC) 4.31 x10 6/uL 4.2-5.4 N HEMOGLOBIN (test code = HGB) 12.7 G/DL 12.0-16.0 N HEMATOCRIT (test code = HCT) 38.0 % 37-47 N MEAN CELL VOLUME (test code = MCV) 88.2 FL 81-99 N MEAN CELL HGB (test code = MCH) 29.5 PG 27-31 N MEAN CELL HGB CONCENTRATION (test code = MCHC) 33.4 G/DL 33-37 N RED CELL DISTRIBUTION WIDTH (test code = RDW) 12.7 % 11.5-14.5 N PLATELET COUNT (test code = PLT) 173 x10 3/uL 150-450 N MEAN PLATELET VOLUME (test c ode = MPV) 9.9 FL 7.4-10.4 N NEUTROPHIL % (test code = NT%) 55.8 % 42-86 N IMMATURE GRANULOCYTE % (test code = IG%) 3.9 % 0.0-2.0 H LYMPHOCYTE % (test code = LY%) 29.6 % 24-44 N MONOCYTE % (test code = MO%) 7.5 % 0.0-4.0 H EOSINOPHIL % (test code = EO%) 2.5 % 0.0-2.7 N BASOPHIL % (test code = BA%) 0.7 % 0.0-0.5 H NUCLEATED RBC % (test code = NRBC%) 0.0 % 0.0-0.0 N NEUTROPHIL # (test code = NT#) 4.03 x10 3/uL 1.8-7.7 N IMMATURE GRANULOCYTE # (test code = IG#) 0.28 x10 3/uL 0.00-0.03 H LYMPHOCYTE # (test code = LY#) 2.14 x10 3/uL 1.0-4.8 N MONOCYTE # (test code = MO#) 0.54 x10 3/uL 0.0-0.8 N EOSINOPHIL # (test code = EO#) 0.18 x10 3/uL 0.0-0.5 N BASOPHIL # (test code = BA#) 0.05 x10 3/uL 0.0-0.2 N NUCLEATED RBC # (test code = NRBC#) 0.0 X10 3/uL 0.0-0.2 N PROTHROMBIN [id number] 06:06:00* Test Item Value Reference Range Interpretation Comme nts PROTHROMBIN TIME PATIENT (test code = PTP) 13.1 SECONDS 9.6-12.3 H INTERNATIONAL NORMAL RATIO (test code = INR) 1.16 Recommended INR range (warfarin therapy): 2.0 - 3.0INR (International Normalized Ratio) should beused when interpreting oral anticoaglulant therapy. For atrial fibrillation and treatment orprevention of deep vein thrombosis. Patients with Palmaz-Flory stent *: 2.0 - 3.0 Patients with mechanical heart valve *: 2.5 - 3.5 Patients with flex-stent *: 3.0 - 4.0(*) = bus person's suggested range Is patient on anticoagulants? UnknownTHROMBOPLASTIN TIME [id number] 06:06:00* Test Item Value Reference Range Interpretation Comme nts THROMBOPLASTIN TIME PARTIAL (test code = PTT) 33.6 SECONDS 22.5-35.3 N *Therapeutic lev el for heparin: 1.5 - 2.5 times the average patient value of 30.0 seconds. The aPTT tet should not be used to evaluate low moleculat weight heparin anticoagulant therapy. Is patient on anticoagulants? [id number] 18:06:00* Test Item Value Reference Range Interpretation Comme nts TROPONIN-I (test code = TROPI) < 0.04 NG/ML 0.00-0.06 N - The use of ser ial sampling and testing protocol is a recommended practice.- An elevated troponin level alone is often not sufficient for diagnosis of myocardial infarction.Results of this assay method may be falsely depressed orelevated if patient is taking high doses of Biotin. ACUTE HEPATITIS [id number] 09:11:00* Test Item Value Reference Range Interpretation Comme nts AB HEPATITIS A IGM (test code = HAVMAB) Negative Negative AG HEPATITIS B SURFACE (test code = HBSAG) Negative Negative AB HEPATITIS B CORE IGM (test code = HBCMAB) Negative Negative AB HEPATITIS C (test code = HCVAB) > 11.0 0.0-0.9 H INFCE Result Uni ts: s/co ratio Negative: < 0.8 Indeterminate: 0.8 - 0.9 Positive: > 0.9 The CDC recommends that a positive HCV antibody result be followed up with a HCV Nucleic Acid Amplification test ([id number]).Performed At: [facility] [id number] Kyle L MD Ph:[phone] COMPREHENSIVE METABOLIC [id number] 06:10:00* Test Item Value Reference Range Interpretation Comme nts SODIUM (test code = NA) 138 MMOL/L 133-145 N POTASSIUM (test code = K) 3.5 MMOL/L 3.6-5.2 L CHLORIDE (test code = CL) 106 MMOL/L 100-108 N CARBON DIOXIDE (test code = CO2) 27 MMOL/L 22-32 N GLUCOSE (test code = GLU) 83 MG/DL 65-99 N Results of this assay method may be falsely depressed orelevated if patient is taking sulfasalazine. BLOOD UREA NITROGEN (test code = BUN) 15 MG/DL 6-20 N GLOMERULAR FILTRATION RATE (test code = GFR) 138 58-135 H Reporting units: mL/min/1.73m\\S\\2 (Modified MDRD Formula) CREATININE (test code = CREAT) 0.49 MG/DL 0.60-1.00 L TOTAL PROTEIN (test code = PROT) 6.9 G/DL 6.4-8.2 N ALBUMIN (test code = ALB) 2.5 G/DL 3.4-5.0 L GLOBULIN (test code = GLOB) 4.4 G/DL 1.5-3.8 H ALBUMIN/GLOBULIN RATIO (test code = A/G) 0.6 1.1-2.2 L CALCIUM (test code = CA) 7.7 MG/DL 8.7-10.5 L BILIRUBIN TOTAL (test code = BILT) 0.5 MG/DL 0.0-1.0 N SGOT/AST (test code = AST) 108 Units/L 15-37 H Results of this assay method may be falsely depressed orelevated if patient is taking sulfasalazine. SGPT/ALT (test code = ALT) 132 Units/L 30-65 H Results of this assay method may be falsely depressed orelevated if patient is taking sulfasalazine. ALKALINE PHOSPHATASE TOTAL (test code = ALKP) 95 Units/L 50-136 N [id number] 06:10:00* Test Item Value Reference Range Interpretation Comme nts MAGNESIUM (test code = MAG) 1.9 MG/DL 1.8-2.4 N PROTHROMBIN [id number] 05:53:00* Test Item Value Reference Range Interpretation Comme nts PROTHROMBIN TIME PATIENT (test code = PTP) 13.8 SECONDS 9.6-12.3 H INTERNATIONAL NORMAL RATIO (test code = INR) 1.22 Recommended INR range (warfarin therapy): 2.0 - 3.0INR (International Normalized Ratio) should beused when interpreting oral anticoaglulant therapy. For atrial fibrillation and treatment orprevention of deep vein thrombosis. Patients with Palmaz-Flory stent *: 2.0 - 3.0 Patients with mechanical heart valve *: 2.5 - 3.5 Patients with flex-stent *: 3.0 - 4.0(*) = bus person's suggested range Is patient on anticoagulants? UnknownTHROMBOPLASTIN TIME [id number] 05:53:00* Test Item Value Reference Range Interpretation Comme nts THROMBOPLASTIN TIME PARTIAL (test code = PTT) 33.1 SECONDS 22.5-35.3 N *Therapeutic lev el for heparin: 1.5 - 2.5 times the average patient value of 30.0 seconds. The aPTT tet should not be used to evaluate low moleculat weight heparin anticoagulant therapy. Is patient on anticoagulants? UnknownCBC W/AUTO [id number] 05:51:00* Test Item Value Reference Range Interpretation Comme nts WHITE BLOOD CELL (test code = WBC) 9.00 x10 3/uL 4.80-10.80 N RED BLOOD CELL (test code = RBC) 4.02 x10 6/uL 4.2-5.4 L HEMOGLOBIN (test code = HGB) 11.9 G/DL 12.0-16.0 L HEMATOCRIT (test code = HCT) 36.2 % 37-47 L MEAN CELL VOLUME (test code = MCV) 90.0 FL 81-99 N MEAN CELL HGB (test code = MCH) 29.6 PG 27-31 N MEAN CELL HGB CONCENTRATION (test code = MCHC) 32.9 G/DL 33-37 L RED CELL DISTRIBUTION WIDTH (test code = RDW) 13.2 % 11.5-14.5 N PLATELET COUNT (test code = PLT) 150 x10 3/uL 150-450 N MEAN PLATELET VOLUME (test c ode = MPV) 10.1 FL 7.4-10.4 N NEUTROPHIL % (test code = NT%) 65.3 % 42-86 N IMMATURE GRANULOCYTE % (test code = IG%) 2.2 % 0.0-2.0 H LYMPHOCYTE % (test code = LY%) 21.7 % 24-44 L MONOCYTE % (test code = MO%) 7.6 % 0.0-4.0 H EOSINOPHIL % (test code = EO%) 2.6 % 0.0-2.7 N BASOPHIL % (test code = BA%) 0.6 % 0.0-0.5 H NUCLEATED RBC % (test code = NRBC%) 0.0 % 0.0-0.0 N NEUTROPHIL # (test code = NT#) 5.89 x10 3/uL 1.8-7.7 N IMMATURE GRANULOCYTE # (test code = IG#) 0.20 x10 3/uL 0.00-0.03 H LYMPHOCYTE # (test code = LY#) 1.95 x10 3/uL 1.0-4.8 N MONOCYTE # (test code = MO#) 0.68 x10 3/uL 0.0-0.8 N EOSINOPHIL # (test code = EO#) 0.23 x10 3/uL 0.0-0.5 N BASOPHIL # (test code = BA#) 0.05 x10 3/uL 0.0-0.2 N NUCLEATED RBC # (test code = NRBC#) 0.0 X10 3/uL 0.0-0.2 N PROTHROMBIN [id number] 06:55:00* Test Item Value Reference Range Interpretation Comme nts PROTHROMBIN TIME PATIENT (test code = PTP) 16.0 SECONDS 9.6-12.3 H INTERNATIONAL NORMAL RATIO (test code = INR) 1.41 Recommended INR range (warfarin therapy): 2.0 - 3.0INR (International Normalized Ratio) should beused when interpreting oral anticoaglulant therapy. For atrial fibrillation and treatment orprevention of deep vein thrombosis. Patients with Palmaz-Flory stent *: 2.0 - 3.0 Patients with mechanical heart valve *: 2.5 - 3.5 Patients with flex-stent *: 3.0 - 4.0(*) = bus person's suggested range Is patient on anticoagulants? UnknownTHROMBOPLASTIN TIME [id number] 06:55:00* Test Item Value Reference Range Interpretation Comme nts THROMBOPLASTIN TIME PARTIAL (test code = PTT) 38.0 SECONDS 22.5-35.3 H *Therapeutic lev el for heparin: 1.5 - 2.5 times the average patient value of 30.0 seconds. The aPTT tet should not be used to evaluate low moleculat weight heparin anticoagulant therapy. Is patient on anticoagulants? UnknownCOMPREHENSIVE METABOLIC [id number] 06:45:00* Test Item Value Reference Range Interpretation Comme nts SODIUM (test code = NA) 134 MMOL/L 133-145 N POTASSIUM (test code = K) 4.0 MMOL/L 3.6-5.2 N CHLORIDE (test code = CL) 101 MMOL/L 100-108 N CARBON DIOXIDE (test code = CO2) 25 MMOL/L 22-32 N GLUCOSE (test code = GLU) 102 MG/DL 65-99 H Results of this assay method may be falsely depressed orelevated if patient is taking sulfasalazine. BLOOD UREA NITROGEN (test code = BUN) 10 MG/DL 6-20 N GLOMERULAR FILTRATION RATE (test code = GFR) 97 58-135 N Reporting units: mL/min/1.73m\\S\\2 (Modified MDRD Formula) CREATININE (test code = CREAT) 0.67 MG/DL 0.60-1.00 N TOTAL PROTEIN (test code = PROT) 7.4 G/DL 6.4-8.2 N ALBUMIN (test code = ALB) 2.7 G/DL 3.4-5.0 L GLOBULIN (test code = GLOB) 4.7 G/DL 1.5-3.8 H ALBUMIN/GLOBULIN RATIO (test code = A/G) 0.6 1.1-2.2 L CALCIUM (test code = CA) 7.6 MG/DL 8.7-10.5 L BILIRUBIN TOTAL (test code = BILT) 0.9 MG/DL 0.0-1.0 N SGOT/AST (test code = AST) 140 Units/L 15-37 H Results of this assay method may be falsely depressed orelevated if patient is taking sulfasalazine. SGPT/ALT (test code = ALT) 177 Units/L 30-65 H Results of this assay method may be falsely depressed orelevated if patient is taking sulfasalazine. ALKALINE PHOSPHATASE TOTAL (test code = ALKP) 93 Units/L 50-136 N [id number] 06:45:00* Test Item Value Reference Range Interpretation Comme nts MAGNESIUM (test code = MAG) 2.1 MG/DL 1.8-2.4 N CBC W/AUTO [id number] 06:37:00* Test Item Value Reference Range Interpretation Comme nts WHITE BLOOD CELL (test code = WBC) 16.66 x10 3/uL 4.80-10.80 H RED BLOOD CELL (test code = RBC) 4.22 x10 6/uL 4.2-5.4 N HEMOGLOBIN (test code = HGB) 12.7 G/DL 12.0-16.0 N HEMATOCRIT (test code = HCT) 37.2 % 37-47 N MEAN CELL VOLUME (test code = MCV) 88.2 FL 81-99 N MEAN CELL HGB (test code = MCH) 30.1 PG 27-31 N MEAN CELL HGB CONCENTRATION (test code = MCHC) 34.1 G/DL 33-37 N RED CELL DISTRIBUTION WIDTH (test code = RDW) 13.2 % 11.5-14.5 N PLATELET COUNT (test code = PLT) 137 x10 3/uL 150-450 L MEAN PLATELET VOLUME (test code = MPV) 10.0 FL 7.4-10.4 N NEUTROPHIL % (test code = NT%) 78.7 % 42-86 N IMMATURE GRANULOCYTE % (test code = IG%) 1.7 % 0.0-2.0 N LYMPHOCYTE % (test code = LY%) 14.3 % 24-44 L MONOCYTE % (test code = MO%) 5.0 % 0.0-4.0 H EOSINOPHIL % (test code = EO%) 0.1 % 0.0-2.7 N BASOPHIL % (test code = BA%) 0.2 % 0.0-0.5 N NUCLEATED RBC % (test code = NRBC%) 0.0 % 0.0-0.0 N NEUTROPHIL # (test code = NT#) 13.11 x10 3/uL 1.8-7.7 H IMMATURE GRANULOCYTE # (test code = IG#) 0.28 x10 3/uL 0.00-0.03 H LYMPHOCYTE # (test code = LY#) 2.38 x10 3/uL 1.0-4.8 N MONOCYTE # (test code = MO#) 0.84 x10 3/uL 0.0-0.8 H EOSINOPHIL # (test code = EO#) 0.01 x10 3/uL 0.0-0.5 N BASOPHIL # (test code = BA#) 0.04 x10 3/uL 0.0-0.2 N NUCLEATED RBC # (test code = NRBC#) 0.0 X10 3/uL 0.0-0.2 N AG STREPTOCOCCUS [id number] 00:05:00* Test Item Value Reference Range Interpretation Comme nts AG STREPTOCOCCUS PNEUMO (test code = STREPPNAG) POSITIVE NEGATIVE A POSITIVE FOR PNEUMOCOCCAL PNEUMONIA. LEGIONELLA ANTIGEN [id number] 00:05:00* Test Item Value Reference Range Interpretation Comme nts LEGIONELLA ANTIGEN URINE (test code = LEGAGUR) NEGATIVE Negative Presumptive NEGA TIVE for L. pneumonphila serogroup 1 antigenin the urine, suggesting no current, or past infection.Infection due to Legionella cannot be ruled out since otherserogroups and species may cause disease, antigen may not bepresent in early detection, and the level of antigen presentin the urine may be below the detection limit of the test. PROCALCITONIN (PCT)2019-12-04 19:20:00* Test Item Value Reference Range Interpretation Comme nts PROCALCITONIN (PCT) (test co de = PROCAL) 1.77 ng/mL 0.00-0.50 H - US ABDOMEN [id number] 19:16:00Patient Name: BRANDY BARRAZA Unit No: [id number] EXAMS: CPT CODE: [id number] ABDOMEN LTD 22288 - ABDOMEN LTD 12/04/2019 6:03 PM Indication: Elevated liver enzymes. Hepatitis C FINDINGS:The liver is heterogeneously hyperechoic with some mild microlobulations, consistent with cirrhosis. The gallbladder contains a 2 cm stone along with sludge and some mild hydrops. No wall thickening or pericholecystic fluid. No biliary dilatation. Impression: Mild cirrhosis changes. Cholelithiasis and sludge. at 1916 Reported and signed by: Ryan Landon MD CC: Court Garza DO Technologist: Shania Joe Trnscrbd D/ (1916) [email or web address].PKE Orig Print D/T: S: 12/04/2019 (1918) Probe: [facility] NAME: BRANDY BARRAZA [address]: [email or web address] [place] [id number] : AGE: 44 SEX: F LOC: TENISHA Devine PHONE #: [phone] EXAM DATE: 12/04/2019 STATUS: ADM IN FAX #: RAD NO: Page 1 Signed [id number] 19:00:00* Test Item Value Reference Range Interpretation Comme nts ACETAMINOPHEN (test code = ACET) < 1 MCG/ML 10-30 L Acetaminophen is possibly toxic at levels of: 1. more than 150 MCG/ML 4 hours post ingestion. 2. more than 50 MCG/ML 12 hours post ingestion. LACTIC [id number] 18:58:00* Test Item Value Reference Range Interpretation Comme nts LACTIC ACID (test code = LACT) 1.7 MMOL/L 0.5-2.2 N SED [id number] 18:52:00* Test Item Value Reference Range Interpretation Comme nts SED RATE (test code = SEDW) 29 MM/HR 0-20 H - XR CHEST 1 [id number] 18:26:00Patient Name: BRANDY BARRAZA Unit No: [id number] EXAMS: CPT CODE: [id number] XR CHEST 1 V 44037 Reason: pnuemonia - XR CHEST 1 V 12/04/2019 6:00 PM Indication: Pneumonia COMPARISON: 1147 hours FINDINGS: Slightly denser alveolar consolidation left mid and lower lung. No change otherwise. at 1826 Reported and signed by: Ryan Landon MD CC: Court Garza DO Technologist: Kerwin Mccurdy RT Trscrpt Dt/ (1825)[email or web address].PKE Orig Print D/T: S: 12/04/2019 (1828) [facility] NAME: BRANDY BARRAZA [id number]: [email or web address] [place] [address] : 1975 AGE: 44 SEX: F LOC: TENISHA Devine PHONE #: [phone] EXAM DATE: 12/04/2019 STATUS: ADM IN FAX #: RAD NO: DC Dt: PAGE 1 Signed ReportDRUG OF ABUSE SCREEN [id number] 17:12:00* Test Item Value Reference Range Interpretation Comments UR COCAINE (test code = COCAU) NEGATIVE NEGATIVE UR MDMA (test code = MDMAQLU) NEGATIVE NEGATIVE UR CANNABINOIDS (test code = CANU) NEGATIVE NEGATIVE UR AMPHETAMINE (test code = AMPHU) NEGATIVE NEGATIVE UR BARBITURATE QUAL (test code = BARBQLU) NEGATIVE NEGATIVE UR BENZODIAZEPINE (test code = BENZU) NEGATIVE NEGATIVE UR OPIATES QUAL (test code = OPIAQLU) POSITIVE NEGATIVE A If confirmatory testing required, contact laboratory. UR PHENCYCLIDINE (PCP) (test code = PHENCU) NEGATIVE NEGATIVE Urine Drug Abuse Screen provides preliminary results thatmay be confirmed by alternate methods (i.e., GC/MS) [facility]. Results of screen may not be usedin criminal justice, job performance or professionalcredential review, or custody issues. Negative [place] Level ng/ml ----- Cocaine 300 Methamphetamine (Ecstacy) 500 Cannabinoids (THC) 50 Amphetamine 1000 Barbiturates 200 Benzodiazepines 200 Opiates 300 Phencyclidine (PCP) 25 C REACTIVE [id number] 15:31:00* Test Item Value Reference Range Interpretation Comme nts C REACTIVE PROTEIN (test cod e = CRP) 4.0 MG/DL < 0.9 H [id number] 15:21:00* Test Item Value Reference Range Interpretation Comme nts PHOSPHOROUS (test code = PHOS) 2.8 MG/DL 2.5-4.9 N - CTA CHEST FOR [id number] 15:08:00Patient Name: BRANDY BARRAZA Unit No: [id number] EXAMS: CPT CODE: [id number] [place] [id number] Reason: PE PROTOCOL - CTA CHEST FOR PE 12/04/2019 1:54 PM Indication: Coughing up blood COMPARISON: None TECHNIQUE: Scanning on PE protocol with 60 mL Isovue-370 IV with 3-D MIPS reconstructions reviewed. FINDINGS: The pulmonary and show is diagnostic out to 4th order branches, in which I see no filling defects to suggest pulmonary embolism. The aorta looks normal caliber with no dissection. The lung windows show patchy alveolar consolidation in the posterior segment KARYN and in all segments of the LLL. Whether this is pulmonary hemorrhage or pneumonia, inciting the hemoptysis, I cannotdifferentiate on CT. I see no effusion. Slight prominence to the left hilar lymphatic tissue. The spleen is also enlarged at 13 cm. 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 Impression: No sign of PE. Left lung infiltrates per above. Splenomegaly. Electronically Signedby Ryan Landon MD on 12/04/2019 at 1508 Reported and signed by: Ryan Landon MD CC: Jeff Woodard MD Technologist: aSm Oro CT Trscrpt Dt/ (150)t.SDR.PKE Orig Print D/T: S: 11/21 (7548) CTDI: DLP: [facility] NAME: BRANDY BARRAZA [address] [facility] PHYS: [place] [address] : 1975 AGE: 44 SEX: F LOC: SIMON PHONE #: [phone] EXAM DATE: 12/04/2019 STATUS: REG ER FAX #: RAD NO: DC Dt: PAGE 1 Signed Report LACTIC ACID [id number] 14:16:00* Test Item Value Reference Range Interpretation Comme nts LACTIC ACID POC (test code = LACTP) 1.44 MMOL/L 0.90-1.70 N Performed by certified crane operator at [facility] PROTHROMBIN [id number] 13:06:00* Test Item Value Reference Range Interpretation Comme nts PROTHROMBIN TIME PATIENT (test code = PTP) 14.2 SECONDS 9.6-12.3 H INTERNATIONAL NORMAL RATIO (test code = INR) 1.25 Recommended INR range (warfarin therapy): 2.0 - 3.0INR (International Normalized Ratio) should beused when interpreting oral anticoaglulant therapy. For atrial fibrillation and treatment orprevention of deep vein thrombosis. Patients with Palmaz-Flory stent *: 2.0 - 3.0 Patients with mechanical heart valve *: 2.5 - 3.5 Patients with flex-stent *: 3.0 - 4.0(*) = bus person's suggested range Is patient on anticoagulants? UnknownTHROMBOPLASTIN TIME [id number] 13:06:00* Test Item Value Reference Range Interpretation Comme nts THROMBOPLASTIN TIME PARTIAL (test code = PTT) 37.6 SECONDS 22.5-35.3 H *Therapeutic lev el for heparin: 1.5 - 2.5 times the average patient value of 30.0 seconds. The aPTT tet should not be used to evaluate low moleculat weight heparin anticoagulant therapy. Is patient on anticoagulants? UnknownBASIC METABOLIC [id number] 12:54:00* Test Item Value Reference Range Interpretation Comme nts SODIUM (test code = NA) 133 MMOL/L 133-145 N POTASSIUM (test code = K) 4.2 MMOL/L 3.6-5.2 N CHLORIDE (test code = CL) 99 MMOL/L 100-108 L CARBON DIOXIDE (test code = CO2) 28 MMOL/L 22-32 N GLUCOSE (test code = GLU) 106 MG/DL 65-99 H Results of this assay method may be falsely depressed orelevated if patient is taking sulfasalazine. BLOOD UREA NITROGEN (test code = BUN) 10 MG/DL 6-20 N GLOMERULAR FILTRATION RATE (test code = GFR) 92 58-135 N Reporting units: mL/min/1.73m\\S\\2 (Modified MDRD Formula) CREATININE (test code = CREAT) 0.70 MG/DL 0.60-1.00 N CALCIUM (test code = CA) 8.0 MG/DL 8.7-10.5 L HEPATIC FUNCTION [id number] 12:54:00* Test Item Value Reference Range Interpretation Comme nts TOTAL PROTEIN (test code = PROT) 7.9 G/DL 6.4-8.2 N ALBUMIN (test code = ALB) 3.1 G/DL 3.4-5.0 L GLOBULIN (test code = GLOB) 4.8 G/DL 1.5-3.8 H ALBUMIN/GLOBULIN RATIO (test code = A/G) 0.6 1.1-2.2 L BILIRUBIN TOTAL (test code = BILT) 0.9 MG/DL 0.0-1.0 N BILIRUBIN DIRECT (test code = BILD) 0.4 MG/DL 0.0-0.3 H BILIRUBIN INDIRECT (test code = BILIND) 0.5 MG/DL 0.0-0.7 N SGOT/AST (test code = AST) 181 Units/L 15-37 H Results of this assay method may be falsely depressed orelevated if patient is taking sulfasalazine. SGPT/ALT (test code = ALT) 226 Units/L 30-65 H Results of this assay method may be falsely depressed orelevated if patient is taking sulfasalazine. ALKALINE PHOSPHATASE TOTAL (test code = ALKP) 123 Units/L 50-136 N [id number] 12:54:00* Test Item Value Reference Range Interpretation Comme [facility] LIPASE (test code = LIP) 127 Units/L 73-393 N [id number] 12:54:00* Test Item Value Reference Range Interpretation Comme nts MAGNESIUM (test code = MAG) 1.6 MG/DL 1.8-2.4 L NT PRO-BRAIN NATRIURETIC [id number] 12:54:00* Test Item Value Reference Range Interpretation Comme nts NT PRO-BRAIN NATRIURETIC PEPTI (test code = PROBNP) 309 PG/ML 0-125 H Results of this assay method may be falsely depressed orelevated if patient is taking high doses of Biotin. CPK-MB [id number] 12:54:00* Test Item Value Reference Range Interpretation Comme nts CK (test code = CKT) 327 Units/L 26-192 H CKMB (test code = CKMBT) 6.6 NG/ML 0.0-3.6 H CKMB INDEX (test code = CKMBI) 2.0 % 0.0-2.4 N Inconclusive of AMI when MB Index is not more than 4. TROPONIN I [id number] 12:30:00* Test Item Value Reference Range Interpretation Comme [facility] TROPONIN I RAPID (test code = TROPIRAP) 0.00 NG/ML 0.00-0.08 N Performed by cer tified crane operator at [facility] - The use of serial sampling and testing protocol is a recommended practice.- An elevated troponin level alone is often not sufficient for diagnosis of myocardial infarction. CBC W/AUTO [id number] 12:26:00* Test Item Value Reference Range Interpretation Comme nts WHITE BLOOD CELL (test code = WBC) 15.39 x10 3/uL 4.80-10.80 H Results called t o and read back by CRUZ VELASQUEZ/RN;1226, 12/04/19, D.LAB.SP. RED BLOOD CELL (test code = RBC) 4.52 x10 6/uL 4.2-5.4 N HEMOGLOBIN (test code = HGB) 13.5 G/DL 12.0-16.0 N HEMATOCRIT (test code = HCT) 39.6 % 37-47 N MEAN CELL VOLUME (test code = MCV) 87.6 FL 81-99 N MEAN CELL HGB (test code = MCH) 29.9 PG 27-31 N MEAN CELL HGB CONCENTRATION (test code = MCHC) 34.1 G/DL 33-37 N RED CELL DISTRIBUTION WIDTH (test code = RDW) 13.1 % 11.5-14.5 N PLATELET COUNT (test code = PLT) 144 x10 3/uL 150-450 L MEAN PLATELET VOLUME (test code = MPV) 10.3 FL 7.4-10.4 N NEUTROPHIL % (test code = NT%) 82.2 % 42-86 N IMMATURE GRANULOCYTE % (test code = IG%) 0.8 % 0.0-2.0 N LYMPHOCYTE % (test code = LY%) 10.0 % 24-44 L MONOCYTE % (test code = MO%) 5.3 % 0.0-4.0 H EOSINOPHIL % (test code = EO%) 1.4 % 0.0-2.7 N BASOPHIL % (test code = BA%) 0.3 % 0.0-0.5 N NUCLEATED RBC % (test code = NRBC%) 0.0 % 0.0-0.0 N NEUTROPHIL # (test code = NT#) 12.66 x10 3/uL 1.8-7.7 H IMMATURE GRANULOCYTE # (test code = IG#) 0.12 x10 3/uL 0.00-0.03 H LYMPHOCYTE # (test code = LY#) 1.54 x10 3/uL 1.0-4.8 N MONOCYTE # (test code = MO#) 0.82 x10 3/uL 0.0-0.8 H EOSINOPHIL # (test code = EO#) 0.21 x10 3/uL 0.0-0.5 N BASOPHIL # (test code = BA#) 0.04 x10 3/uL 0.0-0.2 N NUCLEATED RBC # (test code = NRBC#) 0.0 X10 3/uL 0.0-0.2 N - XR CHEST 2 [id number] 12:09:00Patient Name: BRANDY BARRAZA Unit No: [id number] EXAMS: CPT CODE: [id number] XR CHEST 2 V [id number] Reason: chest pain 2 views of the chest showed lingular infiltrate new from previous days exam. Right lung is clear. There is no effusion or pneumothorax. Heart size and vasculature remain within normal limits. IMPRESSION: 1. Developing lingular infiltrate at 1209 Reported and signed by: Alberto Perez MD CC: Jeff Woodard MD Technologist: Nestor Ochoa RT Trscrpt Dt/ (9707)tCHRISSY Orig Print D/T: S: 2019 ([id number]) [facility] NAME: BRANDY BARRAZA [address] PHYS: [place] [address] : 1975 AGE: 44 SEX: F LOC: SIMON PHONE #: [phone] EXAM DATE: 12/04/2019 STATUS: REG ER FAX #: RAD NO: DC Dt: PAGE 1 Signed Report- XR CHEST 2 [id number] 08:30:00Patient Name: BRANDY BARRAZA Unit No: [id number] EXAMS: CPT CODE: [id number] XR CHEST 2 V [id number] Reason: dry cough, fever, congestion, VAPES FINDINGS: Two views of the chest show normal heart size and pulmonary vasculature. The lungs are clear bilaterally. There is no focal infiltrate, effusion or pneumothorax. IMPRESSION: No acute cardiopulmonary findings at 0830 Reported and signed by: Alberto Perez MD CC: Bharath Doe MD Technologist: Sade Corrales RT CT Trscrpt Dt/ (08)PriteshW Orig Print D/T: S: 12/03/2019 ([id number]) [place] NAME: BRANDY BARRAZA [facility] [address] [place] [address] PHYS: Bharath Salamanca MD [address] : 1975 AGE: 44 SEX: F [place], [place] [address] LOC: D.PER PHONE #: [phone] EXAM DATE: 12/03/2019 STATUS: REG ER FAX #: RAD NO: DC Dt: PAGE 1 Signed Report UA RFLX MICROSCOPIC [id number] 10:17:00* Test Item Value Reference Range Interpretation Comme nts UA COLOR (test code = COLU) ORANGE YELLOW UA APPEARANCE (test code = APPU) CLEAR CLEAR UA GLUCOSE DIPSTICK (test code = DGLUU) NEGATIVE mg/dL NEGATIVE UA BILIRUBIN DIPSTICK (test code = BILU) 1+ NEGATIVE A Not able to rule out false positive; No confirmatory test. UA KETONE DIPSTICK (test code = KETU) NEGATIVE mg/dL NEGATIVE UA SPECIFIC GRAVITY (test code = SGU) 1.015 1.001-1.035 N UA BLOOD DIPSTICK (test code = BRIELLE) NEGATIVE NEGATIVE UA PH DIPSTICK (test code = KINGS) 6.5 5.5-7.0 N UA PROTEIN DIPSTICK (test code = PROU) NEGATIVE mg/dL NEGATIVE UA UROBILINOGEN DIPSTICK (test code = URO) 12.0 mg/dL NORMAL A UA NITRITE DIPSTICK (test code = EVANGELIST) NEGATIVE NEGATIVE UA LEUKOCYTE ESTERASE DIPSTICK (test code = LEUU) NEGATIVE NEGATIVE UA COMMENT (test code = COMU) VOLUME 10-12 ML URINE SPECIMEN DESCRIPTION (test code = UASPEC) Clean Catch UA WBC (test code = WBCU) < 10 #/hpf <10 UA SQUAMOUS CELLS (test code = SQU) 20 - 40 #/lpf <100 UA CULTURE NEEDED? (test code = UACULT) Criteria not met Indication for culture: Dysuria/FrequencyURINE SOURCE: Clean CatchUA RFLX MICROSCOPIC [id number] 09:01:00* Test Item Value Reference Range Interpretation Comme nts UA COLOR (test code = COLU) ORANGE YELLOW UA APPEARANCE (test code = APPU) CLEAR CLEAR UA GLUCOSE DIPSTICK (test code = DGLUU) NEGATIVE mg/dL NEGATIVE UA BILIRUBIN DIPSTICK (test code = BILU) 1+ NEGATIVE A Not able to rule out false positive; No confirmatory test. UA KETONE DIPSTICK (test code = KETU) NEGATIVE mg/dL NEGATIVE UA SPECIFIC GRAVITY (test code = SGU) 1.015 1.001-1.035 N UA BLOOD DIPSTICK (test code = BRIELLE) NEGATIVE NEGATIVE UA PH DIPSTICK (test code = KINGS) 6.5 5.5-7.0 N UA PROTEIN DIPSTICK (test code = PROU) NEGATIVE mg/dL NEGATIVE UA UROBILINOGEN DIPSTICK (test code = URO) 12.0 mg/dL NORMAL A UA NITRITE DIPSTICK (test code = EVANGELIST) NEGATIVE NEGATIVE UA LEUKOCYTE ESTERASE DIPSTICK (test code = LEUU) NEGATIVE NEGATIVE UA COMMENT (test code = COMU) VOLUME 10-12 ML URINE SPECIMEN DESCRIPTION (test code = UASPEC) Clean Catch UA WBC (test code = WBCU) #/hpf <10 UA SQUAMOUS CELLS (test code = SQU) #/lpf <100 UA CULTURE NEEDED? (test code = UACULT) Indication for culture: Dysuria/FrequencyURINE SOURCE: Clean CatchGLYCOSYLATED HEMOGLOBIN (HA1C)2019-05-22 10:10:00* Test Item Value Reference Range Interpretation Comme nts GLYCOSYLATED HEMOGLOBIN (HA1 C) (test code = GLYHGB) 5.6 % TOT HB 4.5-6.2 N LIPID PROFILE (CORONARY RISK)2019-05-22 09:12:00* Test Item Value Reference Range Interpretation Comme nts TRIGLYCERIDES (test code = TRIG) 42 MG/DL 30-200 N CHOLESTEROL (test code = CHOL) 101 MG/DL 122-200 L CHOLESTEROL/HDL RATIO (test code = CHOLHDL) 2.1 1.5-4.5 N 1. Initial classification based on total cholesterol: <200 mg/dl Desirable cholesterol 200-239 mg/dl Borderline high risk cholesterol >240 mg/dl High risk cholesterol2. Initial classification based on LDL cholesterol: <130 mg/dl Desirable LDL cholesterol 130-159 mg/dl Borderline high risk LDL >159 mg/dl High risk LDL cholesterol3. HDL < 35 mg/dl represent increased CHD risk; HDL > 60 mg/dl represent decreased CHD risk.4. Chol/HDL > 5.0 represent increased CHD risk in men; Chol/HDL > 4.5 represent increased CHD risk in women. HDL CHOLESTEROL (test code = HDL) 48 MG/DL 40-60 N LIPOPROTEIN LDL (test code = LDL) 45 MG/DL 62-130 L LIPOPROTEIN VLDL (test code = VLDL) 8 MG/DL 3-60 N RAPID PLASMA [id number] 08:57:00* Test Item Value Reference Range Interpretation Comme nts RAPID PLASMA REAGIN (test co de = RPR) Nonreactive Nonreactive UA RFLX [id number] 17:35:00* Test Item Value Reference Range Interpretation Comme nts UA COLOR (test code = COLU) DARK YELLOW YELLOW UA APPEARANCE (test code = APPU) HAZY CLEAR UA GLUCOSE DIPSTICK (test code = DGLUU) NEGATIVE mg/dL NEGATIVE UA BILIRUBIN DIPSTICK (test code = BILU) NEGATIVE NEGATIVE UA KETONE DIPSTICK (test cod e = KETU) NEGATIVE mg/dL NEGATIVE UA SPECIFIC GRAVITY (test code = SGU) 1.015 1.001-1.035 N UA BLOOD DIPSTICK (test code = BRIELLE) NEGATIVE NEGATIVE UA PH DIPSTICK (test code = KINGS) 6.5 5.5-7.0 N UA PROTEIN DIPSTICK (test code = PROU) 15 mg/dL NEGATIVE A UA UROBILINOGEN DIPSTICK (test code = URO) 8.0 mg/dL NORMAL A UA NITRITE DIPSTICK (test code = EVANGELIST) NEGATIVE NEGATIVE UA LEUKOCYTE ESTERASE DIPSTICK (test code = LEUU) TRACE NEGATIVE A UA COMMENT (test code = COMU) VOLUME 10-12 ML URINE SPECIMEN DESCRIPTION (test code = UASPEC) Clean Catch UA [id number] 17:35:00* Test Item Value Reference Range Interpretation Comme nts UA WBC (test code = WBCU) < 10 #/hpf <10 UA RBC (test code = RBCU) 0-2 #/hpf NONE SEEN A UA BACTERIA (test code = BACU) 1+ #/hpf NONE SEEN UA SQUAMOUS CELLS (test code = SQU) > 100 #/lpf <100 A DRUG OF ABUSE SCREEN [id number] 17:32:00* Test Item Value Reference Range Interpretation Comments UR COCAINE (test code = COCAU) POSITIVE NEGATIVE A If confirmatory testing required, contact laboratory. UR MDMA (test code = MDMAQLU) POSITIVE NEGATIVE A If confirmatory testing required, contact laboratory. UR CANNABINOIDS (test code = CANU) NEGATIVE NEGATIVE UR AMPHETAMINE (test code = AMPHU) POSITIVE NEGATIVE A If confirmatory testing required, contact laboratory. UR BARBITURATE QUAL (test code = BARBQLU) NEGATIVE NEGATIVE UR BENZODIAZEPINE (test code = BENZU) POSITIVE NEGATIVE A If confirmat ory testing required, contact laboratory. UR OPIATES QUAL (test code = OPIAQLU) NEGATIVE NEGATIVE UR PHENCYCLIDINE (PCP) (test code = PHENCU) NEGATIVE NEGATIVE Urine Drug Abuse Screen provides preliminary results thatmay be confirmed by alternate methods (i.e., GC/MS) at [facility]. Results of screen may not be usedin criminal justice, job performance or professionalcredential review, or infant custody issues. Negative [place] Level ng/ml ----- Cocaine 300 Methamphetamine (Ecstacy) 500 Cannabinoids (THC) 50 Amphetamine 1000 Barbiturates 200 Benzodiazepines 200 Opiates 300 Phencyclidine (PCP) 25 UR HCG [id number] 17:29:00* Test Item Value Reference Range Interpretation Comme nts UR HCG QUAL (test code = HCGQLU) NEGATIVE NEGATIVE False negatives may occur when levels of hCGare below 20 mIU/ml. When is still suspected, a new specimenshould be obtained after 48 hours and re-tested.If waiting 48 hours is not medically advisable,the test result should be confirmed using aquantitative hCG assay. UA RFLX [id number] 17:25:00* Test Item Value Reference Range Interpretation Comme nts UA COLOR (test code = COLU) DARK YELLOW YELLOW UA APPEARANCE (test code = APPU) HAZY CLEAR UA GLUCOSE DIPSTICK (test code = DGLUU) NEGATIVE mg/dL NEGATIVE UA BILIRUBIN DIPSTICK (test code = BILU) NEGATIVE NEGATIVE UA KETONE DIPSTICK (test cod e = KETU) NEGATIVE mg/dL NEGATIVE UA SPECIFIC GRAVITY (test code = SGU) 1.015 1.001-1.035 N UA BLOOD DIPSTICK (test code = BRIELLE) NEGATIVE NEGATIVE UA PH DIPSTICK (test code = KINGS) 6.5 5.5-7.0 N UA PROTEIN DIPSTICK (test code = PROU) 15 mg/dL NEGATIVE A UA UROBILINOGEN DIPSTICK (test code = URO) 8.0 mg/dL NORMAL A UA NITRITE DIPSTICK (test code = EVANGELIST) NEGATIVE NEGATIVE UA LEUKOCYTE ESTERASE DIPSTICK (test code = LEUU) TRACE NEGATIVE A UA COMMENT (test code = COMU) VOLUME 10-12 ML URINE SPECIMEN DESCRIPTION (test code = UASPEC) Clean Catch UA [id number] 17:25:00* Test Item Value Reference Range Interpretation Comme nts UA WBC (test code = WBCU) #/hpf <10 UA RBC (test code = RBCU) #/hpf NONE SEEN UA SQUAMOUS CELLS (test code = SQU) #/lpf <100 UA RFLX [id number] 17:25:00* Test Item Value Reference Range Interpretation Comme nts UA COLOR (test code = COLU) DARK YELLOW YELLOW UA APPEARANCE (test code = APPU) HAZY CLEAR UA GLUCOSE DIPSTICK (test code = DGLUU) NEGATIVE mg/dL NEGATIVE UA BILIRUBIN DIPSTICK (test code = BILU) NEGATIVE NEGATIVE UA KETONE DIPSTICK (test cod e = KETU) NEGATIVE mg/dL NEGATIVE UA SPECIFIC GRAVITY (test code = SGU) 1.015 1.001-1.035 N UA BLOOD DIPSTICK (test code = BRIELLE) NEGATIVE NEGATIVE UA PH DIPSTICK (test code = KINGS) 6.5 5.5-7.0 N UA PROTEIN DIPSTICK (test code = PROU) 15 mg/dL NEGATIVE A UA UROBILINOGEN DIPSTICK (test code = URO) 8.0 mg/dL NORMAL A UA NITRITE DIPSTICK (test code = EVANGELIST) NEGATIVE NEGATIVE UA LEUKOCYTE ESTERASE DIPSTICK (test code = LEUU) TRACE NEGATIVE A UA COMMENT (test code = COMU) VOLUME 10-12 ML URINE SPECIMEN DESCRIPTION (test code = UASPEC) Clean Catch UA [id number] 17:25:00* Test Item Value Reference Range Interpretation Comme nts UA WBC (test code = WBCU) #/hpf <10 UA RBC (test code = RBCU) #/hpf NONE SEEN UA SQUAMOUS CELLS (test code = SQU) #/lpf <100 COMPREHENSIVE METABOLIC [id number] 17:24:00* Test Item Value Reference Range Interpretation Comme nts SODIUM (test code = NA) 138 MMOL/L 133-145 [facility] BY REPEATED ANALYSIS BY Shad Madera05/21/19 POTASSIUM (test code = K) 4.0 MMOL/L 3.6-5.2 N CHLORIDE (test code = CL) 103 MMOL/L 100-108 N CARBON DIOXIDE (test code = CO2) 31 MMOL/L 22-32 N GLUCOSE (test code = GLU) 83 MG/DL 65-99 N Results of this assay method may be falsely depressed orelevated if patient is taking sulfasalazine. BLOOD UREA NITROGEN (test code = BUN) 17 MG/DL 6-20 N GLOMERULAR FILTRATION RATE (test code = GFR) 95 58-135 N Reporting units: mL/min/1.73m\\S\\2 (Modified MDRD Formula) CREATININE (test code = CREAT) 0.68 MG/DL 0.60-1.00 N TOTAL PROTEIN (test code = PROT) 7.3 G/DL 6.4-8.2 N ALBUMIN (test code = ALB) 3.3 G/DL 3.4-5.0 L GLOBULIN (test code = GLOB) 4.0 G/DL 1.5-3.8 H ALBUMIN/GLOBULIN RATIO (test code = A/G) 0.8 1.1-2.2 L CALCIUM (test code = CA) 8.4 MG/DL 8.7-10.5 L BILIRUBIN TOTAL (test code = BILT) 0.8 MG/DL 0.0-1.0 N BILIRUBIN INDIRECT (test code = BILIND) 0.6 MG/DL 0.0-0.7 N SGOT/AST (test code = AST) 123 Units/L 15-37 H Results of this assay method may be falsely depressed orelevated if patient is taking sulfasalazine. SGPT/ALT (test code = ALT) 230 Units/L 30-65 H Results of this assay method may be falsely depressed orelevated if patient is taking sulfasalazine. ALKALINE PHOSPHATASE TOTAL (test code = ALKP) 103 Units/L 50-136 N HEPATIC FUNCTION [id number] 17:24:00* Test Item Value Reference Range Interpretation Comme nts BILIRUBIN DIRECT (test code = BILD) 0.2 MG/DL 0.0-0.3 N THYROID STIMULATING [id number] 17:24:00* Test Item Value Reference Range Interpretation Comme nts THYROID STIMULATING HORMONE (test code = TSH) 0.34 0.42-5.47 L Micro- International Units/L [id number] 17:24:00* Test Item Value Reference Range Interpretation Comme nts ACETAMINOPHEN (test code = ACET) < 1 MCG/ML 10-30 L Acetaminophen is possibly toxic at levels of: 1. more than 150 MCG/ML 4 hours post ingestion. 2. more than 50 MCG/ML 12 hours post ingestion. [id number] 17:24:00* Test Item Value Reference Range Interpretation Comme nts SALICYLATE (test code = TEMO) < 3 MG/DL 0-20 N Reference Range: Analgesic............ ...... < 10 mg/dl Therapeutic.......... ...... 15-20 mg/dl Mild Toxicity............. . > 30 mg/dl Severe Toxicity............ > 60 mg/dl [id number] 17:24:00* Test Item Value Reference Range Interpretation Comme nts ALCOHOL (test code = ALC) < 3 MG/DL 0-10 N 0 - 10: Should b e interpreted as NEGATIVE. 11 - 50: None to mild euphoria. 51 - 100: Mild influence on vision and dark adaptation. > 80: Legal intoxication; Depression of [employer]; Increasing degree of poisoning. > 400: Fatalities reported. Results are for medical purposes only and not forlegal or employment evaluative purposes. COMPREHENSIVE METABOLIC [id number] 16:45:00* Test Item Value Reference Range Interpretation Comme nts SODIUM (test code = NA) 138 MMOL/L 133-145 [facility] BY RE[facility] ANALYS[facility] BY Shad Madera05/21/19 POTASSIUM (test code = K) 4.0 MMOL/L 3.6-5.2 N CHLORIDE (test code = CL) 103 MMOL/L 100-108 N CARBON DIOXIDE (test code = CO2) 31 MMOL/L 22-32 N GLUCOSE (test code = GLU) 83 MG/DL 65-99 N Results of this assay method may be falsely depressed orelevated if patient is taking sulfasalazine. BLOOD UREA NITROGEN (test code = BUN) 17 MG/DL 6-20 N GLOMERULAR FILTRATION RATE (test code = GFR) 95 58-135 N Reporting units: mL/min/1.73m\\S\\2 (Modified MDRD Formula) CREATININE (test code = CREAT) 0.68 MG/DL 0.60-1.00 N TOTAL PROTEIN (test code = PROT) G/DL 6.4-8.2 ALBUMIN (test code = ALB) G/DL 3.4-5.0 GLOBULIN (test code = GLOB) G/DL 1.5-3.8 ALBUMIN/GLOBULIN RATIO (test code = A/G) 1.1-2.2 CALCIUM (test code = CA) 8.4 MG/DL 8.7-10.5 L BILIRUBIN TOTAL (test code = BILT) MG/DL 0.0-1.0 SGOT/AST (test code = AST) Units/L 15-37 SGPT/ALT (test code = ALT) Units/L 30-65 ALKALINE PHOSPHATASE TOTAL (test code = ALKP) Units/L 50-136 HEPATIC FUNCTION [id number] 16:45:00* Test Item Value Reference Range Interpretation Comme nts BILIRUBIN DIRECT (test code = BILD) MG/DL 0.0-0.3 THYROID STIMULATING [id number] 16:45:00* Test Item Value Reference Range Interpretation Comme nts THYROID STIMULATING HORMONE (test code = TSH) 0.42-5.47 [id number] 16:45:00* Test Item Value Reference Range Interpretation Comme nts ACETAMINOPHEN (test code = ACET) MCG/ML 10-30 [id number] 16:45:00* Test Item Value Reference Range Interpretation Comme nts SALICYLATE (test code = TEMO) MG/DL 0-20 [id number] 16:45:00* Test Item Value Reference Range Interpretation Comme nts ALCOHOL (test code = ALC) MG/DL 0-10 CBC W/AUTO [id number] 16:34:00* Test Item Value Reference Range Interpretation Comme nts WHITE BLOOD CELL (test code = WBC) 6.24 x10 3/uL 4.80-10.80 N RED BLOOD CELL (test code = RBC) 4.50 x10 6/uL 4.2-5.4 N HEMOGLOBIN (test code = HGB) 14.0 G/DL 12.0-16.0 N HEMATOCRIT (test code = HCT) 40.0 % 37-47 N MEAN CELL VOLUME (test code = MCV) 88.9 FL 81-99 N MEAN CELL HGB (test code = MCH) 31.1 PG 27-31 H MEAN CELL HGB CONCENTRATION (test code = MCHC) 35.0 G/DL 33-37 N RED CELL DISTRIBUTION WIDTH (test code = RDW) 12.1 % 11.5-14.5 N PLATELET COUNT (test code = PLT) 202 x10 3/uL 150-450 N MEAN PLATELET VOLUME (test c ode = MPV) 10.1 FL 7.4-10.4 N NEUTROPHIL % (test code = NT%) 51.0 [...] 3/uL 0.0-0.2 N DRUG OF ABUSE SCREEN [id number] 16:05:00* Test Item Value Reference Range Interpretation Comments UR COCAINE (test code = COCAU) NEGATIVE NEGATIVE UR MDMA (test code = MDMAQLU) POSITIVE NEGATIVE A If confirmatory testing required, contact laboratory. UR CANNABINOIDS (test code = CANU) NEGATIVE NEGATIVE UR AMPHETAMINE (test code = AMPHU) POSITIVE NEGATIVE A If confirmatory testing required, contact laboratory. UR BARBITURATE QUAL (test code = BARBQLU) NEGATIVE NEGATIVE UR BENZODIAZEPINE (test code = BENZU) POSITIVE NEGATIVE A If confirmat ory testing required, contact laboratory. UR OPIATES QUAL (test code = OPIAQLU) NEGATIVE NEGATIVE UR PHENCYCLIDINE (PCP) (test code = PHENCU) NEGATIVE NEGATIVE Urine Drug Abuse Screen provides preliminary results thatmay be confirmed by alternate methods (i.e., GC/MS) at [facility]. Results of screen may not be usedin criminal justice, job performance or professionalcredential review, or custody issues. Negative [place] Level ng/ml ----- Cocaine 300 Methamphetamine (Ecstacy) 500 Cannabinoids (THC) 50 Amphetamine 1000 Barbiturates 200 Benzodiazepines 200 Opiates 300 Phencyclidine (PCP) 25 [id number] 16:01:00* Test Item Value Reference Range Interpretation Comme nts AMMONIA (test code = AMM) 30 UMOL/L 11-35 N Results of this assay method may be falsely depressed orelevated if patient is taking sulfasalazine. UR HCG [id number] 15:57:00* Test Item Value Reference Range Interpretation Comme nts UR HCG QUAL (test code = HCGQLU) NEGATIVE NEGATIVE False negatives may occur when levels of hCGare below 20 mIU/ml. When is still suspected, a new specimenshould be obtained after 48 hours and re-tested.If waiting 48 hours is not medically advisable,the test result should be confirmed using aquantitative hCG assay. D-DIMER [id number] 15:57:00* Test Item Value Reference Range Interpretation Comme nts D-DIMER QUANT (test code = DDIMER) < 100 D-DU 0-400 N [place] Triage values presented in units of mass (ng/mL)of D-dimer, also known as D-dimer units (D-DU).* Cut-off: 400 ng/mL Results of the D-Dimer test should always be interpretedin conjunction with the patient's medical history, clinicalpresentation, and other findings. Clinical diagnosis shouldnot be based on the results of D-Dimer alone.Patients with a distal DVT may have a normal D-Dimer result. COMPREHENSIVE METABOLIC [id number] 15:55:00* Test Item Value Reference Range Interpretation Comme nts SODIUM (test code = NA) 142 MMOL/L 133-145 N POTASSIUM (test code = K) 4.0 MMOL/L 3.6-5.2 N CHLORIDE (test code = CL) 106 MMOL/L 100-108 N CARBON DIOXIDE (test code = CO2) 32 MMOL/L 22-32 N GLUCOSE (test code = GLU) 103 MG/DL 65-99 H Results of this assay method may be falsely depressed orelevated if patient is taking sulfasalazine. BLOOD UREA NITROGEN (test code = BUN) 32 MG/DL 6-20 H GLOMERULAR FILTRATION RATE (test code = GFR) 83 58-135 N Reporting units: mL/min/1.73m\\S\\2 (Modified MDRD Formula) CREATININE (test code = CREAT) 0.77 MG/DL 0.60-1.00 N TOTAL PROTEIN (test code = PROT) 7.1 G/DL 6.4-8.2 N ALBUMIN (test code = ALB) 3.3 G/DL 3.4-5.0 L GLOBULIN (test code = GLOB) 3.8 G/DL 1.5-3.8 N ALBUMIN/GLOBULIN RATIO (test code = A/G) 0.9 1.1-2.2 L CALCIUM (test code = CA) 8.2 MG/DL 8.7-10.5 L BILIRUBIN TOTAL (test code = BILT) 0.6 MG/DL 0.0-1.0 N SGOT/AST (test code = AST) 153 Units/L 15-37 H Results of this assay method may be falsely depressed orelevated if patient is taking sulfasalazine. SGPT/ALT (test code = ALT) 292 Units/L 30-65 H Results of this assay method may be falsely depressed orelevated if patient is taking sulfasalazine. ALKALINE PHOSPHATASE TOTAL (test code = ALKP) 114 Units/L 50-136 N [id number] 15:55:00* Test Item Value Reference Range Interpretation Comme nts LIPASE (test code = LIP) 206 Units/L 73-393 N [id number] 15:55:00* Test Item Value Reference Range Interpretation Comme nts MAGNESIUM (test code = MAG) 1.6 MG/DL 1.8-2.4 L [id number] 15:55:00* Test Item Value Reference Range Interpretation Comme nts ALCOHOL (test code = ALC) < 3 MG/DL 0-10 N 0 - 10: Should b e interpreted as NEGATIVE. 11 - 50: None to mild euphoria. 51 - 100: Mild influence on vision and dark adaptation. > 80: Legal intoxication; Depression of RIVET SPINNER; Increasing degree of poisoning. > 400: Fatalities reported. Results are for medical purposes only and not forlegal or employment evaluative purposes. COMPREHENSIVE METABOLIC [id number] 15:51:00* Test Item Value Reference Range Interpretation Comme nts SODIUM (test code = NA) 142 MMOL/L 133-145 N POTASSIUM (test code = K) 4.0 MMOL/L 3.6-5.2 N CHLORIDE (test code = CL) 106 MMOL/L 100-108 N CARBON DIOXIDE (test code = CO2) 32 MMOL/L 22-32 N GLUCOSE (test code = GLU) 103 MG/DL 65-99 H Results of this assay method may be falsely depressed orelevated if patient is taking sulfasalazine. BLOOD UREA NITROGEN (test code = BUN) 32 MG/DL 6-20 H GLOMERULAR FILTRATION RATE (test code = GFR) 83 58-135 N Reporting units: mL/min/1.73m\\S\\2 (Modified MDRD Formula) CREATININE (test code = CREAT) 0.77 MG/DL 0.60-1.00 N TOTAL PROTEIN (test code = PROT) G/DL 6.4-8.2 ALBUMIN (test code = ALB) G/DL 3.4-5.0 GLOBULIN (test code = GLOB) G/DL 1.5-3.8 ALBUMIN/GLOBULIN RATIO (test code = A/G) 1.1-2.2 CALCIUM (test code = CA) 8.2 MG/DL 8.7-10.5 L BILIRUBIN TOTAL (test code = BILT) MG/DL 0.0-1.0 SGOT/AST (test code = AST) Units/L 15-37 SGPT/ALT (test code = ALT) Units/L 30-65 ALKALINE PHOSPHATASE TOTAL (test code = ALKP) Units/L 50-136 [id number] 15:51:00* Test Item Value Reference Range Interpretation Comme nts LIPASE (test code = LIP) Units/L 73-393 [id number] 15:51:00* Test Item Value Reference Range Interpretation Comme nts MAGNESIUM (test code = MAG) MG/DL 1.8-2.4 [id number] 15:51:00* Test Item Value Reference Range Interpretation Comme nts ALCOHOL (test code = ALC) MG/DL 0-10 CBC W/AUTO [id number] 15:40:00* Test Item Value Reference Range Interpretation Comme nts WHITE BLOOD CELL (test code = WBC) 5.95 x10 3/uL 4.80-10.80 N RED BLOOD CELL (test code = RBC) 4.29 x10 6/uL 4.2-5.4 N HEMOGLOBIN (test code = HGB) 13.4 G/DL 12.0-16.0 N HEMATOCRIT (test code = HCT) 38.7 % 37-47 N MEAN CELL VOLUME (test code = MCV) 90.2 FL 81-99 N MEAN CELL HGB (test code = MCH) 31.2 PG 27-31 H MEAN CELL HGB CONCENTRATION (test code = MCHC) 34.6 G/DL 33-37 N RED CELL DISTRIBUTION WIDTH (test code = RDW) 12.1 % 11.5-14.5 N PLATELET COUNT (test code = PLT) 175 x10 3/uL 150-450 N MEAN PLATELET VOLUME (test c ode = MPV) 9.8 FL 7.4-10.4 N NEUTROPHIL % (test code = NT%) 50.7 [...] = BA#) 0.03 x10 3/uL 0.0-0.2 N Notes Date/Time Note Provider Source 2022-05-14 14:54:00 [id number]+/rgD lPWNn4jNpUpU9YeMk/WaIsXDm1rWU3pT4484-80-37R14:54: [id number] [place], [place] PATIENT NAME: BRANDY BARRAZA ADMIT DATE: 05/14/22ACCOUNT NO: [id number] ROOM NO: AGE: 46 REPORT TYPE: ELECTROCARDIOGRAM SEX: F : 79ADMITTING PHYSICIAN: ATTENDING PHYSICIAN:Jerman Vital MD Order:[id number] Reason : Test Date/Time Stamp:TueMay 14 2022 14:54:49Blood Pressure : / mmHGVent. Rate : 098 BPM Atrial Rate : 098 BPM P-R Int : 110 ms QRS Dur : 084 ms QT Int : 382 ms P-R-T Axes : 060 -08 041 degrees QTc Int : 487 ms Sinus rhythm with short PRPossible Left atrial enlargementProlonged QTAbnormal ECGWhen compared with ECG of 24-MAR-2022 20:38,Vent. rate has increased BY 46 BPMQT has lengthenedConfirmed by HARRIS WOLF DO ([id number]), web content editor STEVEN LEE ([id number]) on 0:53:34 AM Referred By: Self Referred Confirmed by:HARRIS WOLF DO at 1053 PATIENT NAME: BRANDY BARRAZA .[id number] AVAvailable for patient [id number]:30:58 [facility] 2022-03-24 20:38:00 [id number] Jf+MKlnbOxX42GCus/LiDU7w+Cn9z /w2UubADD4t8ch5kim45jwJIBoW/6gRA2838-71-17Q28:38: [id number] [place], [place] PATIENT NAME: BRANDY BARRAZA ADMIT DATE: 03/24/22ACCOUNT NO: [id number] ROOM NO: AGE: 46 REPORT TYPE: ELECTROCARDIOGRAM SEX: F : 79ADMITTING PHYSICIAN: ATTENDING PHYSICIAN:Garth Loja MD Order:[id number] Reason : Test Date/Time Stamp:TueMar 24 2022 20:38:09Blood Pressure : / mmHGVent. Rate : 052 BPM Atrial Rate : 052 BPM P-R Int : 124 ms QRS Dur : 088 ms QT Int : 442 ms P-R-T Axes : 063 -16 014 degrees QTc Int : 411 ms Sinus bradycardiaPossible Left atrial enlargementBorderline ECGWhen compared with ECG of 04-DEC-2019 16:05,Vent. rate has decreased BY 48 BPMConfirmed by GARTH LOJA ([id number]), web content editor ADALBERTO RODRIGUEZ ([id number]) on04/11/2022 9:45:35 AM Referred By: Self Referred Confirmed by:GARTH LOJA at 0945 PATIENT NAME: BRANDY BARRAZA .[id number] AVAvailable for patient [id number]:47:02 [facility] 2022-03-24 20:07:00 [id number] sNVt+CPXb3+1XAcDMWHIL3ER71bK3 se3C5m+Y56DrsyQccW9mFCzKLRnTLSJd4628-05-22E14:07: 00 [facility]OR A [facility] PROVIDER REPORTREPORT#:[id number] REPORT STATUS: SignedDATE:03/24/22 TIME: 2006 PATIENT: BRANDY BARRAZA UNIT #: [id number]#: [id number] ROOM/BED:AGE: 46 SEX: F PCP PHYS: Berto Johansen MDSERVICE AUTHOR: Garth Loja MD * ALL edits or amendments must be made on the electronic/computer document * HPI-Palpit/Arrhyth Free Text HPI NotesFree Text HPI NotesThitianna is a 46-year-old female history of anxiety presenting with multiple complaints. She reports that she has had right leg pain that radiates to her chest. She has had some expressive aphasia over the last 48 hours. Denies any weakness. Says that she felt unlike herself. She works at a [employer] and has been reading back orders incorrectly. at bedside as witness this as well. Denies any head injury or trauma. Denies any headache current chest pain, or shortness of breath. She reports that her heart rate has been low but thensometimes has up. They checked a EKG theresa on the phone which said it was abnormal but also brought her to the emergency department as well. GeneralInitial Greet Date/Time 03/24/222000 PresentationChief Complaint PalpitationsHx Obtained From PatientOnset Occurred YesterdayProgression since Onset Waxes and wanes Review of Systems ROS StatementsAll systems rev neg except as marked. Basic Review of SystemsBasic ROS EYES: No redness, : No dysuria/frequency, MS: No ext swelling/pain, HEM: No bleeding/bruising Past Medical History - AdultStated Complaint CHEST PAIN, PALPITATIONS,WEAKAllergiesCoded Allergies:No Known Allergies (05/19/19) Home MedicationsDiscontinued ScriptsGABAPENTIN (NEURONTIN) 100 MG PO TID 14 Days #42 CAP Prov: 05/23/19 DC: 03/24/222012 Therapy completedARIPiprazole (ABILIFY) 2 MG PO DAILY ARIPiprazole (ABILIFY) 2 MG PO DAILY #30 TAB Prov: 05/28/19 DC: 03/24/222012 Therapy completedOSELTAMIVIR (TAMIFLU) 75 MG PO BID OSELTAMIVIR (TAMIFLU) 75 MG PO BID #4 CAP Prov: 12/07/19 DC: 03/24/222012 Therapy completedamLODIPine (NORVASC) 5 MG PO DAILY amLODIPine (NORVASC) 5 MG PO DAILY #30 TAB Prov: 12/07/19 DC: 03/24/222012 Therapy completedPENICILLIN V-K (PEN V-K) 500 MG PO Q8H PENICILLIN V-K (PEN V-K) 500 MG PO Q8H #42 TABS Prov: 12/07/19 DC: 03/24/222012 Therapy completed Discontinued Reported MedicationsMETHADONE DISPERSIBLE (METHADOSE DISPERSIBLE) 50 MG PO DAILY ESCITALOPRAM (LEXAPRO) 20 MG PO DAILY Past Medical History:Reports: Alcoholism/subst abuse, Depression/mood disorder (depression/anxiety), Hepatitis (C). Additional Medical HistoryHEP CAdditional Surgical HistoryDENIESAdditional Family HistoryREVIEWED AND NON-CONTRIBUTORYAlcohol Use Denies EtOH useDrug Use Benzodiazepines, Meth/amphetamines, Opiates (HX OF VICODIN ABUSE)Additional Social Historyvapes Physical Exam Vital SignsVital SignsFirst Documented: Result Date Time Pulse Ox 100 03/24 2009 B/P 127/60 03/24 2009 B/P Mean 82 03/24 2009 O2 Delivery Room air 03/24 2009 Temp 98.7 03/24 2009 Pulse 58 03/24 2009 Resp 18 03/24 2009 Last Documented: Result Date Time Pulse Ox 100 03/24 2131 B/P 124/61 03/24 2131 B/P Mean 82 03/24 2131 O2 Delivery Room air 03/24 2131 Pulse 61 03/24 2131 Resp 16 03/24 2131 Temp 98.7 03/24 2009 Review of Vital Signs Reviewed Basic Physical ExamBasic PE HEAD: Atraumatic/NC, EYES: PERRL, conj clear, ENT: Membranes moist, NECK: Supple, ABD: Soft/non-tender, EXT: No gross abnormality, SKIN: No rashes, warm/dry, NEURO: alert oriented, NEURO: gross movement NL, PSYCH: NL thought content Focused PEGeneral/Const General/Const Awake, Alert Text/Dict NotesAppears anxious.MS Head Head Atraumatic, NormocephalicResp/Chest Respiratory/Chest Atraumatic, Breath sounds NL, Breath sounds = bilat, No respiratory distressCardiovascular Cardiovascular Heart rate NL, Regular rhythm, Heart sounds NLMS Lower Extrem Text/Dict NotesNo symmetrical swelling. No bony tenderness. No tenderness to palpation.Neurologic Text/Dict Notes5 out of 5 strength upper and lower extremities to executive casino host strength, flexion, extension. Interpretation Diagnostics Lab Results InterpretationResultsLaboratory Tests 03/24/222047:[Embedded Image Not Available]Laboratory Tests: 03/24 Chemistry Sodium (133 - 145 MMOL/L) 140 Potassium (3.6 - 5.2 MMOL/L) 4.0 Chloride (100 - 108 MMOL/L) 104 Carbon Dioxide (22 - 32 MMOL/L) 34 H BUN (6 - 20 MG/DL) 13 Creatinine (0.60 - 1.00 MG/DL) 0.70 Estimated GFR (MDRD) (58 - 135) 91 Glucose (65 - 99 MG/DL) 77 Calcium (8.7 - 10.5 MG/DL) 8.3 L Troponin I High Sens (< 51 ng/L) 10 Hematology WBC (4.80 - 10.80 x10 3/uL) 4.76 L RBC (4.2 - 5.4 x10 6/uL) 4.20 Hgb (12.0 - 16.0 G/DL) 12.8 Hct (37 - 47 %) 37.9 MCV (81 - 99 FL) 90.2 MCH (27 - 31 PG) 30.5 MCHC (33 - 37 G/DL) 33.8 RDW Coeff of Ramiro (11.5 - 14.5 %) 13.3 Plt Count (150 - 450 x10 3/uL) 112 L MPV (7.4 - 10.4 FL) 10.1 Neut % (Auto) (42 - 86 %) 51.0 Lymph % (Auto) (24 - 44 %) 37.0 [place] % (Auto) (0.0 - 4.0 %) 7.8 H Eos % (Auto) (0.0 - 2.7 %) 4.0 H Baso % (Auto) (0.0 - 0.5 %) 0.2 Eos # (Auto) (0.0 - 0.5 x10 3/uL) 0.19 Baso # (Auto) (0.0 - 0.2 x10 3/uL) 0.01 Absolute Neuts (auto) (1.8 - 7.7 x10 3/uL) 2.43 Absolute Lymphs (auto) (1.0 - 4.8 x10 3/uL) 1.76 Absolute Monos (auto) (0.0 - 0.8 x10 3/uL) 0.37 Urines Urine HCG, Qual (NEGATIVE) NEGATIVE 03/24 2030 Urines Ur Spec Description Clean Catch Urine Color (YELLOW) DARK YELLOW Urine Appearance (CLEAR) SLIGHTLY CLOUDY Urine pH (5.5 - 7.0) 6.5 Ur Specific [place] (1.001 - 1.035) 1.010 Urine Protein (NEGATIVE mg/dL) NEGATIVE Urine Glucose (UA) (NEGATIVE mg/dL) NEGATIVE Urine Ketones (NEGATIVE mg/dL) 5 H Urine Blood (NEGATIVE) NEGATIVE Urine Nitrite (NEGATIVE) NEGATIVE Urine Bilirubin (NEGATIVE) NEGATIVE Urine Urobilinogen (NORMAL mg/dL) 1.0 Ur Leukocyte Esterase (NEGATIVE) 25 H Urine RBC (NONE SEEN #/hpf) 0-2 H Urine WBC (<10 #/hpf) < 10 Ur Squamous Epith Cells (<100 #/lpf) 0 - 20 Urine Bacteria (NONE SEEN #/hpf) RARE Urine Culture Screen Criteria not met Urine Comment VOLUME 10-12 ML Recent Impressions:CAT SCAN - CT HEAD/BRAIN W/O CONT 03/24 2015 Report Impression - Status: SIGNED Entered: 03/24/20222023 IMPRESSION: No CT evidence of acute intracranial abnormality or hemorrhage.Impression By: DuANS4 - TIANNA CervantesADIOLOGY - XR FEMUR MIN 2 VW RT 03/24 2027 Report Impression - Status: SIGNED Entered: 03/24/20222043 Impression: 1. Normal right femur.Impression By: DuVR5 - Cristofer Witt, [facility] SCAN - CT L-SPINE W/O CONTRAST 03/24 2027 Report Impression - Status: SIGNED Entered: 03/24/20222048 IMPRESSION: Right foraminal narrowing at L3-L4 by degenerative changes withimpingement of the exiting right L3 nerve root sleeve. Spinal canal stenosis at L3-L4 and L4-L5. Encroachment of the L4-L5 and L5-S1 neural foramen by degenerativechanges. Recommend further evaluation with MRIImpression By: Sean.BIANCA Roche MD Re-Evaluation MDM Free Text MDM NotesFree Text MDM Ulosj42-mpec-weo female presenting with a variety of complaints including low back pain with radiation to her right leg as well as concern for expressive aphasia. She had no focal neurological deficits on exam. With the multitude of her symptoms and history of anxiety most likely the majority of these are anxiety related. However, she was found to have 2 herniated disks likely causing her sciatic type pain. Discharged her on multimodal regimen and follow-up with spinal surgery. She was reassured and felt better after work-up was normal. Patient was hemodynamically stable and nontoxic-appearing at the time of discharge. Patient Discharge Departure Vital Signs/ConditionVital SignsFirst Documented: Result Date Time Pulse Ox 100 03/24 2009 B/P 127/60 03/24 2009 B/P Mean 82 03/24 2009 O2 Delivery Room air 03/24 2009 Temp 98.7 03/24 2009 Pulse 58 03/24 2009 Resp 18 03/24 2009 Last Documented: Result Date Time Pulse Ox 100 03/24 2131 B/P 124/61 03/24 2131 B/P Mean 82 03/24 2131 O2 Delivery Room air 03/24 2131 Pulse 61 03/24 2131 Resp 16 03/24 2131 Temp 98.7 03/24 2009 All vital signs available at the time of this entry have been reviewed. Condition Stable Clinical ImpressionClinical ImpressionPrimary Impression: Sciatica Disposition DecisionDischarge )( Discharged to Home Yes )( Time 2118 )( Date 03/24/22 Discharge/Care Plan(Auto) PrescriptionsCurrent Visit ScriptsCYCLOBENZAPRINE (FLEXERIL) 10 MG PO Q8H PRN PRN MUSCLE SPASMS/PAIN CYCLOBENZAPRINE (FLEXERIL) 10 MG PO Q8H PRN PRN MUSCLE SPASMS/PAIN #15 TABS KETOROLAC (TORADOL) 10 MG PO Q6H PRN PRN PAIN KETOROLAC (TORADOL) 10 MG PO Q6H PRN PRN PAIN #20 TABS GABAPENTIN (NEURONTIN) 300 MG PO TID GABAPENTIN (NEURONTIN) 300 MG PO TID #90 CAPS Patient Instructions ED Back Pain (Acute or Chronic)ReferralsProvider Referral: Ryan Villanueva MD Notes: Spine surgery Address: [facility] [address] [address] Departure FormsWORK/SCHOOL EXCUSE VARIABLE Any Restrictions Off work/school 2 days Discharge NoteI have spoken with the patient and/or caregivers. I have explained the patient'scondition, diagnoses and treatment plan based on the information available to meat this time. I have answered the patient's and/or caregiver's questions and addressed any concerns. The patient and/or caregivers have as good an understanding of the patient's diagnosis, condition and treatment plan as can beexpected at this point. The vital signs have been stable. The patient's condition is stable and appropriate for discharge from the emergency department. The patient will pursue further outpatient evaluation with the primary care physician or other designated or consulting physician as outlined in the discharge instructions. The patient and/or caregivers are agreeable to this planof care and follow-up instructions have been explained in detail. The patient and/or caregivers have received these instructions in written format and have expressed an understanding of the discharge instructions. The patient and/or caregivers are aware that any significant change in condition or worsening of symptoms should prompt an immediate return to this or the closest emergency department or a call to 911. at 0021RPT #:[id number] OF REPORTEDEmerselect specialty hospital department hfssgn8929-43-83P47:07:00D.[id number] ilable for patient odwyCMCFXQNJBQHLQO9241-19-57C16:21:43 [facility] 2019-12-07 10:39:00 [id number] 4yQGtIqeLp6R8BwbYmfkn7Ys4KgYz UUunX0Ow8/+30Zvlw3kLOiJki1TvVe3Kfu8014-33-73R21:3 9:00 [facility])Hospitalist Discharge SummaryREPORT#:[id number] REPORT STATUS: SignedDATE:12/07/19 TIME: 1039 PATIENT: BRANDY BARRAZA UNIT #: [id number]#: [id number] [facility] 79 AGE: 44 SEX: F ATTEND: AdriencherylBecki [facility] AUTHOR: Feliciano Suggs DO R3 * ALL edits or amendments must be made on the electronic/computer document * PCP PCPPCP:PCP: No Primary or Family Physician Discharge to: home General InformationDate of admission:Observation Start Date: Date of admission: 12/04/19 Discharge date: 12/07/19Admission diagnosis:Lingular pneumoniaInfluenza AHepatitishepatosplenomegalyHep C, untreatedhypomagnesemia- repletedhistory of Alcoholism, last relapse in 2019substance abuse- benzodiazepie and methamphetamine abuseAnxiety, uncontrolledfibromyalgia, on gabapentinDepression with suicidal ideation in the past- stable today, no SIdaily vape use Discharge diagnosis:Strep pneumonia bacteremia w/source of pneumonia Influenza A on flu swab 12/03/2019.Left lung infiltrates (community acquired pneumonia) on imaging due to S. PneumoniaEssential hypertension Asymptomatic cholelithiasis and sludge seen on imaging-stable hepatosplenomegalyHep C, untreated with mild cirrhosis changes on abdomen ultrasound History of Alcoholism, last relapse in 2019Substance abuse- benzodiazepie and methamphetamine abuseIV drug abuse history in remissionAnxiety, uncontrolledFibromyalgia, on gabapentinDepression with suicidal ideation in the past- stable today, no SIDaily vape use Hospital course:44F w/PMHx of depression, anxiety, fibromyalgia, substance abuse/alcohol abuse, daily vaping, daily methadone use, and untreated Hepatitis C presents to the ED with shortness of breath that woke her up from her sleep the day prior to her admission. Ms. Barraza appeared to be doing quite well on hospital day #3, she is upright in the hospital bed watching TV and communicates with ease, she has been walkingaround the unit independently. She is eager to be discharged home. She denies fevers overnight, no chills either which is a drastic change comapred to her initial presentation. She does not have a primary care physician. I have offeredthat she can follow up with me at [facility] as detailed below. She is advised of the importance of taking her oral antibiotic medication with consistency considering her bacteremia (explained as bacteria in her blood) - she acknowledges the importance and states that she will take her medications. She is advised to get her hepatitis C treatment. She does report she has a follow up appointment already for this at a clinic that she is unable to recall the name of. She reports that she will undergo an evaluation for treatment for her hepatitis. Pt. condition on discharge: improvedAllergies:Allergies:No Known Allergies (Coded, 05/19/19) Med Rec Med RecDischarge meds:Continue taking these medications:METHADONE DISPERSIBLE (METHADOSE DISPERSIBLE) 40 MG TAB.GLENNA 50 MILLIGRAM ORAL DAILY. GABAPENTIN (NEURONTIN) 100 MG CAP 100 MILLIGRAM ORAL THREE TIMES A DAY. Days = 14 Qty = 42 ARIPiprazole (ABILIFY) 2 MG TAB 2 MILLIGRAM ORAL DAILY. Qty = 30 ESCITALOPRAM (LEXAPRO) 20 MG TAB 20 MILLIGRAM ORAL DAILY. Start taking the following new medications:OSELTAMIVIR (TAMIFLU) 75 MG CAP 75 MILLIGRAM ORAL TWICE DAILY. Qty = 4 No Refills amLODIPine (NORVASC) 5 MG TAB 5 MILLIGRAM ORAL DAILY. Qty = 30 No Refills PENICILLIN V-K (PEN V-K) 500 MG TAB 500 MILLIGRAM ORAL EVERY 8 HOURS. Qty = 42 No Refills Discharge InstructionsDiet: regularActivity: as tolerated, non-strenuousAdditional instructions:Come back to ER if you develop fevers or any other medical concern that you may have. If you do not have a medical doctor please come follow up with me at [facility] on Tuesdays. We can also help with treatment of your hepatitis C. Follow-up AppointmentsPCP: PCP: Chela Villalobos DO Follow up timeframe: In 2-3 weeksAttending Physician: Attending Physician: Becki Shirley MD Objective Physical ExamHead/Eyes: atraumatic, normal conjunctiva/scleraENT: moist mucosal membranesNeck: non-tender, no JVDCardiovascular: normal capillary refill, regular rate rhythmRespiratory: decreased breath sounds, aerating well, unable to take deep breathsdue to painAbdomen: non-tender, soft, no distentionGenitourinary: no bladder distention, no flank painExtremities: moves all, normal capillary refillMusculoskeletal: normal inspection, L sided rib pain, tenderness to palpation and with deep inspiratory effortNeuro/RIVET SPINNER: alert, oriented X 3, normal speechSkin: dry, intact, normal color, normal temperature ResultsFindings/Data:> BLOOD CULTURE Preliminary 12/[birth year]19-1944 NO GROWTH AT 72 HOURS. NO GROWTH AT 72 HOURS. Postive Urine Step. pneumoniae Ag Hepatitis C Ab >11.0 at 0843 RPT #:[id number] OF REPORTDSDischarge kegccdc8581-65-92X54:39:00D.[id number] ailable for patient ddunFZJQDLXISPUWIO0439-89-16Q15:58:45 [facility] 2019-12-07 10:39:00 [id number] Ikns7kRZV0uJntvlNOrcjBQADwAP+ L6KU1NDGI0STG3YFp/u+bozw3gxqp5m+Y54784-25-42T78:3 9:00 [facility])Hospitalist Discharge SummaryREPORT#:[id number] REPORT STATUS: SignedDATE:12/07/19 TIME: 1039 PATIENT: BRANDY BARRAZA UNIT #: [id number]#: [id number] ROOM/BED: [id number]: 77 AGE: 44 SEX: F ATTEND: Becki Shirley AUTHOR: Feliciano Suggs DO R3 * ALL edits or amendments must be made on the electronic/computer document * Feliciano Suggs 12/07/19 1039:PCP PCPPCP:PCP: No Primary or Family Physician Discharge to: home General InformationDate of admission:Observation Start Date: Date of admission: 12/04/19 Discharge date: 12/07/19Admission diagnosis:Lingular pneumoniaInfluenza AHepatitishepatosplenomegalyHep C, untreatedhypomagnesemia- repletedhistory of Alcoholism, last relapse in 2019substance abuse- benzodiazepie and methamphetamine abuseAnxiety, uncontrolledfibromyalgia, on gabapentinDepression with suicidal ideation in the past- stable today, no SIdaily vape use Discharge diagnosis:Strep pneumonia bacteremia w/source of pneumonia Influenza A on flu swab 12/03/2019.Left lung infiltrates (community acquired pneumonia) on imaging due to S. PneumoniaEssential hypertension Asymptomatic cholelithiasis and sludge seen on imaging-stable hepatosplenomegalyHep C, untreated with mild cirrhosis changes on abdomen ultrasound History of Alcoholism, last relapse in 2019Substance abuse- benzodiazepie and methamphetamine abuseIV drug abuse history in remissionAnxiety, uncontrolledFibromyalgia, on gabapentinDepression with suicidal ideation in the past- stable today, no SIDaily vape use Hospital course:44F w/PMHx of depression, anxiety, fibromyalgia, substance abuse/alcohol abuse, daily vaping, daily methadone use, and untreated Hepatitis C presents to the ED with shortness of breath that woke her up from her sleep the day prior to her admission. Ms. Barraza appeared to be doing quite well on hospital day #3, she is upright in the hospital bed watching TV and communicates with ease, she has been walkingaround the unit independently. She is eager to be discharged home. She denies fevers overnight, no chills either which is a drastic change comapred to her initial presentation. She does not have a primary care physician. I have offeredthat she can follow up with me at [facility] as detailed below. She is advised of the importance of taking her oral antibiotic medication with consistency considering her bacteremia (explained as bacteria in her blood) - she acknowledges the importance and states that she will take her medications. She is advised to get her hepatitis C treatment. She does report she has a follow up appointment already for this at a clinic that she is unable to recall the name of. She reports that she will undergo an evaluation for treatment for her hepatitis. Pt. condition on discharge: improvedAllergies:Allergies:No Known Allergies (Coded, 05/19/19) Med Rec Med RecDischarge meds:Continue taking these medications:METHADONE DISPERSIBLE (METHADOSE DISPERSIBLE) 40 MG TAB.GLENNA 50 MILLIGRAM ORAL DAILY. GABAPENTIN (NEURONTIN) 100 MG CAP 100 MILLIGRAM ORAL THREE TIMES A DAY. Days = 14 Qty = 42 ARIPiprazole (ABILIFY) 2 MG TAB 2 MILLIGRAM ORAL DAILY. Qty = 30 ESCITALOPRAM (LEXAPRO) 20 MG TAB 20 MILLIGRAM ORAL DAILY. Start taking the following new medications:OSELTAMIVIR (TAMIFLU) 75 MG CAP 75 MILLIGRAM ORAL TWICE DAILY. Qty = 4 No Refills amLODIPine (NORVASC) 5 MG TAB 5 MILLIGRAM ORAL DAILY. Qty = 30 No Refills PENICILLIN V-K (PEN V-K) 500 MG TAB 500 MILLIGRAM ORAL EVERY 8 HOURS. Qty = 42 No Refills Discharge InstructionsDiet: regularActivity: as tolerated, non-strenuousAdditional instructions:Come back to ER if you develop fevers or any other medical concern that you may have. If you do not have a medical doctor please come follow up with me at [facility] on Tuesday mornings. We can also help with treatment of your hepatitis C. Follow-up AppointmentsPCP: PCP: Chela Villalobos DO Follow up timeframe: In 2-3 weeksAttending Physician: Attending Physician: Becki Shirley MD Objective Physical ExamHead/Eyes: atraumatic, normal conjunctiva/scleraENT: moist mucosal membranesNeck: non-tender, no JVDCardiovascular: normal capillary refill, regular rate rhythmRespiratory: decreased breath sounds, aerating well, unable to take deep breathsdue to painAbdomen: non-tender, soft, no distentionGenitourinary: no bladder distention, no flank painExtremities: moves all, normal capillary refillMusculoskeletal: normal inspection, L sided rib pain, tenderness to palpation and with deep inspiratory effortNeuro/RIVET SPINNER: alert, oriented X 3, normal speechSkin: dry, intact, normal color, normal temperature ResultsFindings/Data:> BLOOD CULTURE Preliminary 12/08/19-1946 NO GROWTH AT 72 HOURS. NO GROWTH AT 72 HOURS. Postive Urine Step. pneumoniae Ag Hepatitis C Ab >11.0 Becki Shirley 12/12/19 1053:Discharge Instructions Free Text DC NotesFree Text DC Notes:Patient discharged in stable condition. All questions and concerns addressed at the time of discharge. Return ER precautions and discharge instructions provided. Time spent at discharge: >30 min at 0843 RPT #:[id number] OF REPORTDSDischarge ratkfbh1863-16-17V12:39:00D.[id number] ailable for patient krluYLKZFVSADCCRAN7014-70-95A06:54:12 [facility] 2019-12-07 10:39:00 [id number] bcSRISpDRF/yiSffVDJnxl5w9vnYz yFvtQelOJFa+4ssueRfJztuehkxPBHISpM1127-98-75F11:3 9:00 [facility])Hospitalist Discharge SummaryREPORT#:[id number] REPORT STATUS: SignedDATE:12/07/19 TIME: 1039 PATIENT: BRANDY BARRAZA UNIT #: [id number]#: [id number] [facility] AGE: 44 SEX: F ATTEND: Becki Shirley [facility] AUTHOR: Feliciano Suggs DO R3 * ALL edits or amendments must be made on the electronic/computer document * Feliciano Suggs 12/07/19 1039:PCP PCPPCP:PCP: No Primary or Family Physician Discharge to: home General InformationDate of admission:Observation Start Date: Date of admission: 12/04/19 Discharge date: 12/07/19Admission diagnosis:Lingular pneumoniaInfluenza AHepatitishepatosplenomegalyHep C, untreatedhypomagnesemia- repletedhistory of Alcoholism, last relapse in 2019substance abuse- benzodiazepie and methamphetamine abuseAnxiety, uncontrolledfibromyalgia, on gabapentinDepression with suicidal ideation in the past- stable today, no SIdaily vape use Discharge diagnosis:Strep pneumonia bacteremia w/source of pneumonia Influenza A on flu swab 12/03/2019.Left lung infiltrates (community acquired pneumonia) on imaging due to S. PneumoniaEssential hypertension Asymptomatic cholelithiasis and sludge seen on imaging-stable hepatosplenomegalyHep C, untreated with mild cirrhosis changes on abdomen ultrasound History of Alcoholism, last relapse in 2019Substance abuse- benzodiazepie and methamphetamine abuseIV drug abuse history in remissionAnxiety, uncontrolledFibromyalgia, on gabapentinDepression with suicidal ideation in the past- stable today, no SIDaily vape use Hospital course:44F w/PMHx of depression, anxiety, fibromyalgia, substance abuse/alcohol abuse, daily vaping, daily methadone use, and untreated Hepatitis C presents to the ED with shortness of breath that woke her up from her sleep the day prior to her admission. Ms. Barraza appeared to be doing quite well on hospital day #3, she is upright in the hospital bed watching TV and communicates with ease, she has been walkingaround the unit independently. She is eager to be discharged home. She denies fevers overnight, no chills either which is a drastic change comapred to her initial presentation. She does not have a primary care physician. I have offeredthat she can follow up with me at [facility] as detailed below. She is advised of the importance of taking her oral antibiotic medication with consistency considering her bacteremia (explained as bacteria in her blood) - she acknowledges the importance and states that she will take her medications. She is advised to get her hepatitis C treatment. She does report she has a follow up appointment already for this at a clinic that she is unable to recall the name of. She reports that she will undergo an evaluation for treatment for her hepatitis. Pt. condition on discharge: improvedAllergies:Allergies:No Known Allergies (Coded, 05/19/19) Med Rec Med RecDischarge meds:Continue taking these medications:METHADONE DISPERSIBLE (METHADOSE DISPERSIBLE) 40 MG TAB.GLENNA 50 MILLIGRAM ORAL DAILY. GABAPENTIN (NEURONTIN) 100 MG CAP 100 MILLIGRAM ORAL THREE TIMES A DAY. Days = 14 Qty = 42 ARIPiprazole (ABILIFY) 2 MG TAB 2 MILLIGRAM ORAL DAILY. Qty = 30 ESCITALOPRAM (LEXAPRO) 20 MG TAB 20 MILLIGRAM ORAL DAILY. Start taking the following new medications:OSELTAMIVIR (TAMIFLU) 75 MG CAP 75 MILLIGRAM ORAL TWICE DAILY. Qty = 4 No Refills amLODIPine (NORVASC) 5 MG TAB 5 MILLIGRAM ORAL DAILY. Qty = 30 No Refills PENICILLIN V-K (PEN V-K) 500 MG TAB 500 MILLIGRAM ORAL EVERY 8 HOURS. Qty = 42 No Refills Discharge InstructionsDiet: regularActivity: as tolerated, non-strenuousAdditional instructions:Come back to ER if you develop fevers or any other medical concern that you may have. If you do not have a medical doctor please come follow up with me at [facility] on Tuesdays. We can also help with treatment of your hepatitis C. Follow-up AppointmentsPCP: PCP: Chela Villalobos DO Follow up timeframe: In 2-3 weeksAttending Physician: Attending Physician: Becki Shirley MD Objective Physical ExamHead/Eyes: atraumatic, normal conjunctiva/scleraENT: moist mucosal membranesNeck: non-tender, no JVDCardiovascular: normal capillary refill, regular rate rhythmRespiratory: decreased breath sounds, aerating well, unable to take deep breathsdue to painAbdomen: non-tender, soft, no distentionGenitourinary: no bladder distention, no flank painExtremities: moves all, normal capillary refillMusculoskeletal: normal inspection, L sided rib pain, tenderness to palpation and with deep inspiratory effortNeuro/RIVET SPINNER: alert, oriented X 3, normal speechSkin: dry, intact, normal color, normal temperature ResultsFindings/Data:> BLOOD CULTURE Preliminary 12/08/19-194 NO GROWTH AT 72 HOURS. NO GROWTH AT 72 HOURS. Postive Urine Step. pneumoniae Ag Hepatitis C Ab >11.0 Becki Shirley 12/12/19 1053:Discharge Instructions Free Text DC NotesFree Text DC Notes:Patient discharged in stable condition. All questions and concerns addressed at the time of discharge. Return ER precautions and discharge instructions provided. Time spent at discharge: >30 min at 0843 at 1109 RPT #:[id number] OF REPORTDSDischarge vndkglg8630-25-85K00:39:00D.[id number] ailable for patient ktkoFFKLSWRLFAQMFZ9643-56-89Z04:10:00 [facility] 2019-12-07 06:35:00 [id number] AbII9bsNTmoCyl94KEhmuhI+2Wfzf ZXr5X/DZW85zi1Oo/Wky5Cvuq9bkLrj43Z8941-02-63H54:3 5:00 [facility])Hospitalist Progress NoteREPORT#:[id number] REPORT STATUS: SignedDATE:12/07/19 TIME: 0635 PATIENT: BRANDY BARRAZA UNIT #: [id number]#: [id number] [address] [birth year] AGE: 44 SEX: F ATTEND: Becki Shirley [facility] AUTHOR: Feliciano Suggs DO R3 * ALL edits or amendments must be made on the electronic/computer document * SubjectiveChief Complaint:Bactermemia follow-upHPI:Ms. Barraza is doing well this morning. She is eager to be discharged home. She denies fevers overnight, no chills either. She does not have family / primary care physician. I have offered that she can follow up with me at [facility] and that information is provided in the DC summary. She is stable for home. She is advised of the importance of taking her oral antibiotic medication with consistency considering her bacteremia (explained as bacteria in her blood)- she acknowledges the importance and states that she will take her medications. Review of SystemsAll systems rev neg: except as marked Objective GeneralVS/I O:Vital Signs: Date Time Temp Pulse Resp B/P B/P Pulse O2 O2 Flow FiO2 Mean Ox Delivery Rate 12/07 0805 98.2 56 18 162/91 114.8 92 Room air 12/07 0501 97.9 70 18 150/91 110.7 98 Room air 12/07 0140 97 Nasal 3.328921 cannula 12/07 0055 97.5 72 18 150/83 105.6 98 Room air 12/06 1959 98.4 63 17 140/84 102.7 94 Room air 12/06 1619 97.7 73 22 149/92 110.7 96 12/06 1208 97.7 63 20 132/83 99.4 96 24 hour I O ending at 0700: 12/07 0700 12/06 1900 Intake Total Output Total Balance Number 1 Bowel Movements Number Voids 4 2 Patient Weight Weight (lb): Weight (oz): Weight (kg): 63.636 Medications:Active Meds + DC'd Last 24 HrsPenicillin V Potassium 500 MG Q6HR PO Amlodipine Besylate 5 MG DAILY PO Doxycycline Monohydrate 100 MG Q12H PO (DC) Methadone HCl 50 MG DAILY PO Ibuprofen 400 MG Q6H PRN PRN PO Ceftriaxone Sodium 2 GM DAILY IV (DC) Sodium Chloride 20 MLEscitalopram Oxalate 20 MG DAILY PO Lidocaine 1 EA DAILY PRN TOPICAL Gabapentin 100 MG Q8HR PO Guaifenesin 600 MG Q12HR PO Albuterol/Ipratropium 1 AMP RTQ4H PRN PRN NEB Oseltamivir Phosphate 75 MG BID PO Doxycycline Hyclate 100 MG Q12H IV (DC) Sodium Chloride 100 ML Physical ExamGeneral appearance: alert, awake, orientedHead/Eyes: atraumatic, normal conjunctiva/scleraENT: moist mucosal membranesNeck: non-tender, no JVDCardiovascular: normal capillary refill, regular rate rhythmRespiratory: decreased breath sounds (left, mild decrease noted), aerating well,symmetric expansion, no distressAbdomen: non-tender, soft, no distentionGenitourinary: no bladder distention, no flank painExtremities: moves all, normal capillary refillMusculoskeletal: normal inspection, no muscle spasmNeuro/RIVET SPINNER: alert, oriented X 3, normal speechSkin: dry, intact, normal color, normal temperature ResultsFindings/Data:Laboratory Tests 12/07 12/06 0520 1735 Chemistry Sodium (133 - 145 MMOL/L) 137 Potassium (3.6 - 5.2 MMOL/L) 3.6 Chloride (100 - 108 MMOL/L) 102 Carbon Dioxide (22 - 32 MMOL/L) 28 BUN (6 - 20 MG/DL) 9 Creatinine (0.60 - 1.00 MG/DL) 0.56 L Estimated GFR (MDRD) (58 - 135) 119 Glucose (65 - 99 MG/DL) 71 Calcium (8.7 - 10.5 MG/DL) 8.3 L Magnesium (1.8 - 2.4 MG/DL) 1.7 L Total Bilirubin (0.0 - 1.0 MG/DL) 0.5 AST (15 - 37 Units/L) 143 H ALT (30 - 65 Units/L) 150 H Alkaline Phosphatase (50 - 136 Units/L) 98 Troponin I (0.00 - 0.06 NG/ML) < 0.04 Total Protein (6.4 - 8.2 G/DL) 7.6 Albumin (3.4 - 5.0 G/DL) 2.7 L Globulin (1.5 - 3.8 G/DL) 4.9 H Albumin/Globulin Ratio (1.1 - 2.2) 0.6 L Laboratory Tests 12/07 0520 Coagulation PT (9.6 - 12.3 SECONDS) 13.1 H INR 1.16 APTT (22.5 - 35.3 SECONDS) 33.6 Laboratory Tests 12/07 0520 Hematology WBC (4.80 - 10.80 x10 3/uL) 7.22 RBC (4.2 - 5.4 x10 6/uL) 4.31 Hgb (12.0 - 16.0 G/DL) 12.7 Hct (37 - 47 %) 38.0 MCV (81 - 99 FL) 88.2 MCH (27 - 31 PG) 29.5 MCHC (33 - 37 G/DL) 33.4 RDW Coeff of Ramiro (11.5 - 14.5 %) 12.7 Plt Count (150 - 450 x10 3/uL) 173 MPV (7.4 - 10.4 FL) 9.9 Neut % (Auto) (42 - 86 %) 55.8 Lymph % (Auto) (24 - 44 %) 29.6 [place] % (Auto) (0.0 - 4.0 %) 7.5 H Eos % (Auto) (0.0 - 2.7 %) 2.5 Baso % (Auto) (0.0 - 0.5 %) 0.7 H Eos # (Auto) (0.0 - 0.5 x10 3/uL) 0.18 Baso # (Auto) (0.0 - 0.2 x10 3/uL) 0.05 Abs Immat Gran (auto) (0.00 - 0.03 x10 3/uL) 0.28 H Absolute Neuts (auto) (1.8 - 7.7 x10 3/uL) 4.03 Absolute Lymphs (auto) (1.0 - 4.8 x10 3/uL) 2.14 Absolute Monos (auto) (0.0 - 0.8 x10 3/uL) 0.54 Absolute Nucleated RBC (0.0 - 0.2 X10 3/uL) 0.0 Immature Gran % (0.0 - 2.0 %) 3.9 H Nucleated RBC % (0.0 - 0.0 %) 0.0 Diagnosis, Assessment PlanOrders: Procedure Date/time Status Discharge Order 12/07 1038 Active Free Text DxA P NotesFree Text DxA P Notes:Strep pneumonia bacteremia w/source of pneumonia Influenza A on flu swab 12/03/2019.Left lung infiltrates (community acquired pneumonia) on imaging due to S. PneumoniaEssential hypertension Asymptomatic cholelithiasis and sludge seen on imaging-stable hepatosplenomegalyHep C, untreated with mild cirrhosis changes on abdomen ultrasound History of Alcoholism, last relapse in 2019Substance abuse- benzodiazepie and methamphetamine abuseIV drug abuse history in remissionAnxiety, uncontrolledFibromyalgia, on gabapentinDepression with suicidal ideation in the past- stable today, no SIDaily vape use Plan:No blood growth on repeat cultures. We will start 14 day course of PCN orally for S. pneumonia from this day onward. The patient is stable for discharge. Should her blood cultures result positive again I will call her. She is advised to follow up with [facility]. She is advised to get her hepatitis C treatment. She does report she has a follow up appointment already for this to undergo an evaluation for treatment for her hepatitis. I will give one dose of PCN V orally right now to see how she tolerates this. I will also start on amlodipine 5 mg daily for her elevated blood pressure which has been consistent. FULL CODEregular [facility]: lulu Gaona [phone] Guzzi- () [phone] clinic number [phone] Dispo: OK to [place] home. Follow up outpatient at [facility] or wherever she can get a primary care physician. at [address] [facility] #:[id number] OF REPORTPRProgress nbij3032-27-60W49:35:00D.[id number] able for patient mtdlEJTDHTAISPXKMN2529-72-71T28:11:19 [facility] 2019-12-07 06:35:00 [id number] 071PSt9DOq4csVB82r8e6XCIQwp4R A/9RykV8PyWwMHi4O5v2mZhTH6mUEurmcL4284-69-04P32:3 5:00 [facility])Hospitalist Progress NoteREPORT#:[id number] REPORT STATUS: SignedDATE:12/07/19 TIME: 06 PATIENT: BRANDY BARRAZA UNIT #: [id number]#: [id number] [address] [birth year] AGE: 44 SEX: F ATTEND: Becki Shirley [facility] AUTHOR: Feliciano Suggs DO R3 * ALL edits or amendments must be made on the electronic/computer document * Feliciano Suggs 12/07/19 0635:SubjectiveChief Complaint:Bactermemia follow-upHPI:Ms. Barraza is doing well this morning. She is eager to be discharged home. She denies fevers overnight, no chills either. She does not have family / primary care physician. I have offered that [facility] and that information is provided in the [place] summary. She is stable for home. She is advised of the importance of taking her oral antibiotic medication with consistency considering her bacteremia (explained as bacteria in her blood)- she acknowledges the importance and states that she will take her medications. Review of SystemsAll systems rev neg: except as marked Objective GeneralVS/I O:Vital Signs: Date Time Temp Pulse Resp B/P B/P Pulse O2 O2 Flow FiO2 Mean Ox Delivery Rate 12/07 0805 98.2 56 18 162/91 114.8 92 Room air 12/07 0501 97.9 70 18 150/91 110.7 98 Room air 12/07 0140 97 Nasal 3.937613 cannula 12/07 0055 97.5 72 18 150/83 105.6 98 Room air 12/06 1959 98.4 63 17 140/84 102.7 94 Room air 12/06 1619 97.7 73 22 149/92 110.7 96 12/06 1208 97.7 63 20 132/83 99.4 96 24 hour I O ending at 0700: 12/07 0700 12/06 1900 Intake Total Output Total Balance Number 1 Bowel Movements Number Voids 4 2 Patient Weight Weight (lb): Weight (oz): Weight (kg): 63.636 Medications:Active Meds + DC'd Last 24 HrsPenicillin V Potassium 500 MG Q6HR PO Amlodipine Besylate 5 MG DAILY PO Doxycycline Monohydrate 100 MG Q12H PO (DC) Methadone HCl 50 MG DAILY PO Ibuprofen 400 MG Q6H PRN PRN PO Ceftriaxone Sodium 2 GM DAILY IV (DC) Sodium Chloride 20 MLEscitalopram Oxalate 20 MG DAILY PO Lidocaine 1 EA DAILY PRN TOPICAL Gabapentin 100 MG Q8HR PO Guaifenesin 600 MG Q12HR PO Albuterol/Ipratropium 1 AMP RTQ4H PRN PRN NEB Oseltamivir Phosphate 75 MG BID PO Doxycycline Hyclate 100 MG Q12H IV (DC) Sodium Chloride 100 ML Physical ExamGeneral appearance: alert, awake, orientedHead/Eyes: atraumatic, normal conjunctiva/scleraENT: moist mucosal membranesNeck: non-tender, no JVDCardiovascular: normal capillary refill, regular rate rhythmRespiratory: decreased breath sounds (left, mild decrease noted), aerating well,symmetric expansion, no distressAbdomen: non-tender, soft, no distentionGenitourinary: no bladder distention, no flank painExtremities: moves all, normal capillary refillMusculoskeletal: normal inspection, no muscle spasmNeuro/RIVET SPINNER: alert, oriented X 3, normal speechSkin: dry, intact, normal color, normal temperature ResultsFindings/Data:Laboratory Tests 12/07 12/06 0520 1735 Chemistry Sodium (133 - 145 MMOL/L) 137 Potassium (3.6 - 5.2 MMOL/L) 3.6 Chloride (100 - 108 MMOL/L) 102 Carbon Dioxide (22 - 32 MMOL/L) 28 BUN (6 - 20 MG/DL) 9 Creatinine (0.60 - 1.00 MG/DL) 0.56 L Estimated GFR (MDRD) (58 - 135) 119 Glucose (65 - 99 MG/DL) 71 Calcium (8.7 - 10.5 MG/DL) 8.3 L Magnesium (1.8 - 2.4 MG/DL) 1.7 L Total Bilirubin (0.0 - 1.0 MG/DL) 0.5 AST (15 - 37 Units/L) 143 H ALT (30 - 65 Units/L) 150 H Alkaline Phosphatase (50 - 136 Units/L) 98 Troponin I (0.00 - 0.06 NG/ML) < 0.04 Total Protein (6.4 - 8.2 G/DL) 7.6 Albumin (3.4 - 5.0 G/DL) 2.7 L Globulin (1.5 - 3.8 G/DL) 4.9 H Albumin/Globulin Ratio (1.1 - 2.2) 0.6 L Laboratory Tests 12/07 0520 Coagulation PT (9.6 - 12.3 SECONDS) 13.1 H INR 1.16 APTT (22.5 - 35.3 SECONDS) 33.6 Laboratory Tests 12/07 0520 Hematology WBC (4.80 - 10.80 x10 3/uL) 7.22 RBC (4.2 - 5.4 x10 6/uL) 4.31 Hgb (12.0 - 16.0 G/DL) 12.7 Hct (37 - 47 %) 38.0 MCV (81 - 99 FL) 88.2 MCH (27 - 31 PG) 29.5 MCHC (33 - 37 G/DL) 33.4 RDW Coeff of Ramiro (11.5 - 14.5 %) 12.7 Plt Count (150 - 450 x10 3/uL) 173 MPV (7.4 - 10.4 FL) 9.9 Neut % (Auto) (42 - 86 %) 55.8 Lymph % (Auto) (24 - 44 %) 29.6 [place] % (Auto) (0.0 - 4.0 %) 7.5 H Eos % (Auto) (0.0 - 2.7 %) 2.5 Baso % (Auto) (0.0 - 0.5 %) 0.7 H Eos # (Auto) (0.0 - 0.5 x10 3/uL) 0.18 Baso # (Auto) (0.0 - 0.2 x10 3/uL) 0.05 Abs Immat Gran (auto) (0.00 - 0.03 x10 3/uL) 0.28 H Absolute Neuts (auto) (1.8 - 7.7 x10 3/uL) 4.03 Absolute Lymphs (auto) (1.0 - 4.8 x10 3/uL) 2.14 Absolute Monos (auto) (0.0 - 0.8 x10 3/uL) 0.54 Absolute Nucleated RBC (0.0 - 0.2 X10 3/uL) 0.0 Immature Gran % (0.0 - 2.0 %) 3.9 H Nucleated RBC % (0.0 - 0.0 %) 0.0 Diagnosis, Assessment PlanOrders: Procedure Date/time Status Discharge Order 12/07 1038 Active Free Text DxA P NotesFree Text DxA P Notes:Strep pneumonia bacteremia w/source of pneumonia Influenza A on flu swab 12/03/2019.Left lung infiltrates (community acquired pneumonia) on imaging due to S. PneumoniaEssential hypertension Asymptomatic cholelithiasis and sludge seen on imaging-stable hepatosplenomegalyHep C, untreated with mild cirrhosis changes on abdomen ultrasound History of Alcoholism, last relapse in 2019Substance abuse- benzodiazepie and methamphetamine abuseIV drug abuse history in remissionAnxiety, uncontrolledFibromyalgia, on gabapentinDepression with suicidal ideation in the past- stable today, no SIDaily vape use Plan:No blood growth on repeat cultures. We will start 14 day course of PCN orally for S. pneumonia from this day onward. The patient is stable for discharge. Should her blood cultures result positive again I will call her. She is advised to follow up with [facility] [facility]. She is advised to get her hepatitis C treatment. She does report she has a follow up appointment already for this to undergo an evaluation for treatment for her hepatitis. I will give one dose of PCN V orally right now to see how she tolerates this. I will also start on amlodipine 5 mg daily for her elevated blood pressure which has been consistent. FULL CODEregular Ara: lulu Gaona [phone] Guzzi- () [phone] clinic number [phone] Dispo: OK to DC home. Follow up outpatient at [place] or wherever she can get a primary care physician. Becki Shirley 12/07/19 1312:Diagnosis, Assessment PlanAdditional comments:I have personally interviewed and examined the patient. All charts, labs, and imaging studies were reviewed. I agree with the Resident's findings, exam, and plan. at [facility] RPT #:[id number] OF REPORTPRProgress xpob0292-71-30Q23:35:00D.[id number] able for patient yvurJVSDYISYGQPRSB7522-23-49A39:13:07 [facility] 2019-12-07 06:35:00 HBcllsfgenm87529474R JU9meHuURhgdX2TjiXFKJSg1qwU9r I4TNu8AoQVvwtzUvrR5IRIChCAflZvF2vq5949-09-88G30:3 5:00 [facility]Hospitalist Progress NoteREPORT#:[id number] REPORT STATUS: SignedDATE:12/07/19 TIME: 634 PATIENT: BRANDY BARRAZA UNIT #: [id number]#: [id number] [facility] AGE: 44 SEX: F ATTEND: Becki Shirley [facility] AUTHOR: Feliciano Suggs DO R3 * ALL edits or amendments must be made on the electronic/computer document * Feliciano Suggs 12/07/19 0635:SubjectiveChief Complaint:Bactermemia follow-upHPI:Ms. Barraza is doing well this morning. She is eager to be discharged home. She denies fevers overnight, no chills either. She does not have family / primary care physician. I have offered that she can follow up with me at [facility] and that information is provided in the DC summary. She is stable for home. She is advised of the importance of taking her oral antibiotic medication with consistency considering her bacteremia (explained as bacteria in her blood)- she acknowledges the importance and states that she will take her medications. Review of SystemsAll systems rev neg: except as marked Objective GeneralVS/I O:Vital Signs: Date Time Temp Pulse Resp B/P B/P Pulse O2 O2 Flow FiO2 Mean Ox Delivery Rate 12/07 0805 98.2 56 18 162/91 114.8 92 Room air 12/07 0501 97.9 70 18 150/91 110.7 98 Room air 12/07 0140 97 Nasal 3.474537 cannula 12/07 0055 97.5 72 18 150/83 105.6 98 Room air 12/06 1959 98.4 63 17 140/84 102.7 94 Room air 12/06 1619 97.7 73 22 149/92 110.7 96 12/06 1208 97.7 63 20 132/83 99.4 96 24 hour I O ending at 0700: 12/07 0700 12/06 1900 Intake Total Output Total Balance Number 1 Bowel Movements Number Voids 4 2 Patient Weight Weight (lb): Weight (oz): Weight (kg): 63.636 Medications:Active Meds + DC'd Last 24 HrsPenicillin V Potassium 500 MG Q6HR PO Amlodipine Besylate 5 MG DAILY PO Doxycycline Monohydrate 100 MG Q12H PO (DC) Methadone HCl 50 MG DAILY PO Ibuprofen 400 MG Q6H PRN PRN PO Ceftriaxone Sodium 2 GM DAILY IV (DC) Sodium Chloride 20 MLEscitalopram Oxalate 20 MG DAILY PO Lidocaine 1 EA DAILY PRN TOPICAL Gabapentin 100 MG Q8HR PO Guaifenesin 600 MG Q12HR PO Albuterol/Ipratropium 1 AMP RTQ4H PRN PRN NEB Oseltamivir Phosphate 75 MG BID PO Doxycycline Hyclate 100 MG Q12H IV (DC) Sodium Chloride 100 ML Physical ExamGeneral appearance: alert, awake, orientedHead/Eyes: atraumatic, normal conjunctiva/scleraENT: moist mucosal membranesNeck: non-tender, no JVDCardiovascular: normal capillary refill, regular rate rhythmRespiratory: decreased breath sounds (left, mild decrease noted), aerating well,symmetric expansion, no distressAbdomen: non-tender, soft, no distentionGenitourinary: no bladder distention, no flank painExtremities: moves all, normal capillary refillMusculoskeletal: normal inspection, no muscle spasmNeuro/RIVET SPINNER: alert, oriented X 3, normal speechSkin: dry, intact, normal color, normal temperature ResultsFindings/Data:Laboratory Tests 12/07 12/06 0520 1735 Chemistry Sodium (133 - 145 MMOL/L) 137 Potassium (3.6 - 5.2 MMOL/L) 3.6 Chloride (100 - 108 MMOL/L) 102 Carbon Dioxide (22 - 32 MMOL/L) 28 BUN (6 - 20 MG/DL) 9 Creatinine (0.60 - 1.00 MG/DL) 0.56 L Estimated GFR (MDRD) (58 - 135) 119 Glucose (65 - 99 MG/DL) 71 Calcium (8.7 - 10.5 MG/DL) 8.3 L Magnesium (1.8 - 2.4 MG/DL) 1.7 L Total Bilirubin (0.0 - 1.0 MG/DL) 0.5 AST (15 - 37 Units/L) 143 H ALT (30 - 65 Units/L) 150 H Alkaline Phosphatase (50 - 136 Units/L) 98 Troponin I (0.00 - 0.06 NG/ML) < 0.04 Total Protein (6.4 - 8.2 G/DL) 7.6 Albumin (3.4 - 5.0 G/DL) 2.7 L Globulin (1.5 - 3.8 G/DL) 4.9 H Albumin/Globulin Ratio (1.1 - 2.2) 0.6 L Laboratory Tests 12/07 0520 Coagulation PT (9.6 - 12.3 SECONDS) 13.1 H INR 1.16 APTT (22.5 - 35.3 SECONDS) 33.6 Laboratory Tests 12/07 0520 Hematology WBC (4.80 - 10.80 x10 3/uL) 7.22 RBC (4.2 - 5.4 x10 6/uL) 4.31 Hgb (12.0 - 16.0 G/DL) 12.7 Hct (37 - 47 %) 38.0 MCV (81 - 99 FL) 88.2 MCH (27 - 31 PG) 29.5 MCHC (33 - 37 G/DL) 33.4 RDW Coeff of Ramiro (11.5 - 14.5 %) 12.7 Plt Count (150 - 450 x10 3/uL) 173 MPV (7.4 - 10.4 FL) 9.9 Neut % (Auto) (42 - 86 %) 55.8 Lymph % (Auto) (24 - 44 %) 29.6 [place] % (Auto) (0.0 - 4.0 %) 7.5 H Eos % (Auto) (0.0 - 2.7 %) 2.5 Baso % (Auto) (0.0 - 0.5 %) 0.7 H Eos # (Auto) (0.0 - 0.5 x10 3/uL) 0.18 Baso # (Auto) (0.0 - 0.2 x10 3/uL) 0.05 Abs Immat Gran (auto) (0.00 - 0.03 x10 3/uL) 0.28 H Absolute Neuts (auto) (1.8 - 7.7 x10 3/uL) 4.03 Absolute Lymphs (auto) (1.0 - 4.8 x10 3/uL) 2.14 Absolute Monos (auto) (0.0 - 0.8 x10 3/uL) 0.54 Absolute Nucleated RBC (0.0 - 0.2 X10 3/uL) 0.0 Immature Gran % (0.0 - 2.0 %) 3.9 H Nucleated RBC % (0.0 - 0.0 %) 0.0 Diagnosis, Assessment PlanOrders: Procedure Date/time Status Discharge Order 12/07 1038 Active Free Text DxA P NotesFree Text DxA P Notes:Strep pneumonia bacteremia w/source of pneumonia Influenza A on flu swab 12/03/2019.Left lung infiltrates (community acquired pneumonia) on imaging due to S. PneumoniaEssential hypertension Asymptomatic cholelithiasis and sludge seen on imaging-stable hepatosplenomegalyHep C, untreated with mild cirrhosis changes on abdomen ultrasound History of Alcoholism, last relapse in 2019Substance abuse- benzodiazepie and methamphetamine abuseIV drug abuse history in remissionAnxiety, uncontrolledFibromyalgia, on gabapentinDepression with suicidal ideation in the past- stable today, no SIDaily vape use Plan:No blood growth on repeat cultures. We will start 14 day course of PCN orally for S. pneumonia from this day onward. The patient is stable for discharge. Should her blood cultures result positive again I will call her. She is advised to follow up with [facility]. She is advised to get her hepatitis C treatment. She does report she has a follow up appointment already for this to undergo an evaluation for treatment for her hepatitis. I will give one dose of PCN V orally right now to see how she tolerates this. I will also start on amlodipine 5 mg daily for her elevated blood pressure which has been consistent. FULL CODEregular dietPOC: lulu Gaona [phone] Guzzi- () [phone] [facility] number [phone] Dispo: OK to DC home. Follow up outpatient at [place] or wherever she can get a primary care physician. Becki Shirley 12/07/19 1312:Diagnosis, Assessment PlanAdditional comments:I have personally interviewed and examined the patient. All charts, labs, and imaging studies were reviewed. I agree with the Resident's findings, exam, and plan. at 1111 at 1400 RPT #:[id number] OF REPORTPRProgress npgx0856-14-70L27:35:00D.[id number] able for patient xyipPCSHYZQGAOHKYV2432-65-50F15:00:57 [facility] 2019-12-06 14:32:00 [id number] u0Is22BoImGNSUWIbdahEaUivf81V KONk+HS1rA7m5WUdVTer0+MUwbkFzGEkuT7039-83-64Z67:3 2:[id number] [place], [place] PATIENT NAME: BRANDY BARRAZA ADMIT DATE: 12/04/19ACCOUNT NO: [id number] ROOM NO: D.H414 AGE: 44 REPORT TYPE: eECHOCARDIOGRAM REPORT SEX: F : [birth year]ADMITTING PHYSICIAN:Parrish Li MD ATTENDING PHYSICIAN:Parrish Li MD *[facility]*[address] [place] [id number] Transthoracic Echocardiogram Patient: Brandy BarrazaStudy Date: 12/06/2019 BP: 145 / 90 [id number] : 1975 Age: 44 Height: 66 in / 167.6 cmAccession#: [id number] Gender: F Weight: 139.7 lb / 63.5 kgBMI/BSA: 22.6 kg/m 2 / 1.72 m 2 *Ordering Physician: * Court Garza *Interpreting Physician: * Adam Tolentino MD*Gastroenterology Nurse Practitioner: * Alissa Lee Indications: Strep Bacteremia w/hx of IV drug use. History: Substance/alcohol abuse Daily vaping (current everyday smoker)Daily methadoneUntreated Hep C. Study data: Transthoracic echocardiogram. Procedure: Transthoracicechocardiography was performed. The study was technically limited due topoor acoustic window availability and body habitus (poor apical subcostal windows). Complete 2D, complete spectral Doppler, and colorDoppler. Patient status: Inpatient. Study status: Routine. Findings PATIENT NAME: BRANDY BARRAZA Left ventricle: The cavity size is normal. Wall thickness is normal.Systolic function is normal. The estimated ejection fraction is 50-54%.Wall motion is normal; there are no regional wall motion abnormalities.Left ventricular diastolic function parameters are indeterminate.Right ventricle: The cavity size is normal. Systolic function isnormal.Left atrium: The atrium is normal in size.Right atrium: The atrium is normal in size.Aorta: Aortic root: The aortic root is normal in size.Aortic valve: The valve is structurally normal. The valve istrileaflet. There is no evidence of stenosis. There is noregurgitation.Mitral valve: The valve is structurally normal. There is noevidence of stenosis. There is trivial regurgitation.Tricuspid valve: The valve is structurally normal. There is noregurgitation.Pulmonic valve: The valve is structurally normal. There is noregurgitation.Pericardium: There is no pericardial effusion.Pulmonary arteries:The main pulmonary artery is normal-sized. Systolic pressure is mildlyincreased, estimated to be 42 mm Hg.Systemic veins:Inferior vena cava: The vessel is normal in size. Measurements Left ventricle Value Ref Left atrium Value Ref MCKENNA, LAX 4.8 cm 3.8 - 5.2 Vol/bsa, ES, 1-p A4C 34 ml/m 2 11 - 40 ESD, LAX 3.6 cm 2.2 - 3.5 Vol/bsa, ES, A/L 35 ml/m 2 16 - 34 ESD/bsa, LAX 2.1 cm/m 2 1.3 - 2.1 AP dim, ES MM 3.7 cm 2.7 - 3.8 FS, LAX 25 % 27 - 45 LA/Ao root ratio, MM 1.52 --------- PW, ED 1.0 cm 0.6 - 0.9 PW, ES 1.3 cm --------- Aortic valve Value Ref IVS/PW, ED 1.07 --------- Peak v, S 1.11 m/sec --------- EF 50 % 54 - 74 Mean v, S 0.81 m/sec --------- EDV, A/L 22 ml 46 - 106 VTI, S 23.8 cm --------- EDV/bsa, A/L 13 ml/m 2 29 - 61 Mean grad, S 2.8 mm Hg --------- E', lat sebastian, TDI 13.8 cm/sec >=10.0 Peak grad, S 5.0 mm Hg --------- E', med sebastian, TDI 10.0 cm/sec >=7.0 LVOT/AV, VTI ratio 0.82 --------- E', avg, TDI 11.9 cm/sec --------- LISA, VTI PATIENT NAME: BRANDY BARRAZA 2.53 cm 2 --------- LVOT/AV, Vpeak ratio 0.73 --------- LVOT Value Ref LISA, Vmax 2.27 cm 2 --------- Diam, S 1.98 cm --------- Area 3.1 cm 2 --------- Pulmonic valve Value Ref Peak nithin, S 0.82 m/sec --------- ME v, ED 0.69 m/sec --------- Mean nithin, S 0.64 m/sec --------- VTI, S 19.5 cm --------- Tricuspid valve Value Ref Peak grad, S 3 mm Hg --------- TR peak v 4.54 m/sec <=2.8 Mean grad, S 2 mm Hg --------- Peak RV-RA grad, S 82 mm Hg --------- SV 60 ml --------- Qs 4.13 L/min --------- Aortic root Value Ref Qs/bsa 2.4 L/(min-m 2) --------- Root diam, ED MM 2.46 cm --------- SV/bsa 35 ml/m 2 --------- Pulmonary artery Value Ref Ventricular septum Value Ref Pressure, S 83.5 mm Hg --------- IVS, ED 1.1 cm 0.6 - 0.9 IVS, ES 1.2 cm --------- Systemic veins Value Ref Estimated CVP 3 mm Hg --------- Right ventricle Value Ref TAPSE, 2D 2.2 cm 1.7 - 3.1 TAPSE, MM 2.2 cm 1.7 - 3.1 Pressure, S 85 mm Hg --------- Conclusions Summary: 1. Left ventricle: The cavity size is normal. Wall thickness is normal. Systolic function is normal. The estimated ejection fraction is 50-54%. Wall motion is normal; there are no regional wall motion abnormalities. Left ventricular diastolic function parameters are indeterminate.2. Pulmonary arteries: Systolic pressure is mildly increased, estimated to be 42 mm Hg.3. No vegetation or thrombi able to be visualized in this study. Prepared and electronically signed by PATIENT NAME: BRANDY BARRAZA Adam Tolentino MD12/06/2019 14:32 at 1433 PATIENT NAME: BRANDY BARRAZA :32:0 0D.[id number] for patient kptxXDKNYPGYRKHTVH5082-89-68P71:33:24 [facility] 2019-12-06 13:35:00 KUzxcztgshn84519134W J5PosAlN55bgj6ek3NttDh3K6pnDC muhQF8fs+maAnjGS3IW267FrRhawnPUZYb5026-28-23Y79:3 5:00 [facility])Pharmacy Prog.Note IV to POREPORT#:[id number] REPORT STATUS: SignedDATE:12/06/19 TIME: 1335 PATIENT: BRANDY BARRAZA UNIT #: [id number]#: [id number] [address] [birth year] AGE: 44 SEX: F ATTEND: Parrish Li [facility] AUTHOR: Aguilar Mac [facility] * ALL edits or amendments must be made on the electronic/computer document * IV to PO Adjustment IV to PO AdjustmentMedication: From:DOXYCYCLINE 100MG IV Q12H To:DOXYCYCLINE 100MG PO V00NZzkwxtasd criteria: Tolerating: PO/Tube medication, clear liq/advancing diet, 24 hrs of enteral feedingVital signs:Vital Signs Date Temp Pulse Resp B/P B/P Mean Pulse Ox FiO2 12/04-12/06 36.4-39.5 58-114 15-24 113-160/67-90 84-110.0 93-99 21 Labs:Laboratory Test:WBC-72 Hrs 12/06 12/05 12/04 0515 0525 1216 Hematology WBC (4.80 - 10.80 x10 3/uL) 9.00 16.66 H 15.39 H at 1336 RPT #:[id number] OF REPORTPRProgress Rcmd1319-41-26E70:35:00D.XHRR10392572-2255RCXkwzj able for patient kdueSISMJVNDEPPRUW8740-09-79V53:36:57 [facility] 2019-12-06 06:26:00 OApgcbvwvpy67334545J Rk3+VxHbEc6wuIJA0bWn+n9cE/tJ0 3BymKjjGAC2aj6G7dVmSIo87xHR99Ox/1q4973-30-02P48:2 6:00 [facility])Hospitalist Progress NoteREPORT#:[id number] REPORT STATUS: SignedDATE:12/06/19 TIME: 625 PATIENT: BRANDY BARRAZA UNIT #: [id number]#: [id number] [address]WPM: 77 AGE: 44 SEX: F ATTEND: Parrish Li [facility] AUTHOR: Court Garza DO R2 * ALL edits or amendments must be made on the electronic/computer document * SubjectiveChief Complaint:f/u influenza, chills, pain, fever Free Text Subj NotesFree Subj Notes:Patient seen and evaluated at bedside this AM. Reports feeling better. Discussedblood work. There is history of IVDU. Echo ordered. Asked specifically for dilaudid last night and received morphine. Review of SystemsConstitutional:Reports: fatigue. Denies: chills, fever. Skin:Denies: rash, swelling. Eyes:Denies: redness, visual loss/blurred. ENT:Reports: sore throat. Denies: nasal congestion. Respiratory:Reports: non productive cough. Denies: hemoptysis, SOB, wheezing. Cardiovascular:Reports: other (inspiratory chest pain). Denies: chest pain, palpitations. GI:Denies: abdominal pain, constipation, diarrhea, nausea, vomiting. :Denies: dysuria, flank pain, frequency, urgency. Musculoskeletal:Reports: other (L sided rib inspiratory pain). Neuro:Reports: weakness. Denies: confusion, dizziness, gait problem, headache. Psych:Denies: agitation, anxiety. Objective GeneralVS/I O:Vital Signs: Date Time Temp Pulse Resp B/P B/P Pulse O2 O2 Flow FiO2 Mean Ox Delivery Rate 12/06 0731 97.5 58 15 145/90 108.3 95 12/06 0414 97.7 61 18 131/83 98.7 99 Nasal cannula 12/05 2351 97.5 65 20 150/90 110.0 96 Room air 12/05 2351 97.5 65 20 150/90 110.0 96 Room air 12/05 2035 96 Nasal 5.123412 cannula 12/05 1954 Nasal 3.415653 cannula 12/05 1936 97.5 78 18 126/85 98.5 96 Nasal cannula 12/05 1936 97.5 78 18 126/85 98.5 96 Nasal cannula 12/05 1720 97.9 68 18 123/74 90.5 98 Nasal cannula 12/05 1201 97.5 66 20 113/76 88.0 99 Nasal cannula 12/05 0910 High flow 5.730392 nasal cannula 12/05 0803 97.9 87 20 119/74 89.4 94 Room air 12/05 0800 97 Nasal 5.860909 cannula 24 hour I O ending at 0700: 12/06 0700 12/05 1900 Intake Total 2105.00 120 Output Total Balance 2105.00 120 Intake, IV 1625.00 Intake, Oral 480 120 Number Voids 6 1 Patient Weight Weight (lb): Weight (oz): Weight (kg): 63.636 Physical ExamGeneral appearance: alert, awake, orientedHead/Eyes: atraumatic, normal conjunctiva/scleraENT: moist mucosal membranesNeck: non-tender, no JVDCardiovascular: normal capillary refill, regular rate rhythmRespiratory: decreased breath sounds, aerating well, unable to take deep breathsdue to painAbdomen: non-tender, soft, no distentionGenitourinary: no bladder distention, no flank painExtremities: moves all, normal capillary refillMusculoskeletal: normal inspection, L sided rib pain, tenderness to palpation and with deep inspiratory effortNeuro/RIVET SPINNER: alert, oriented X 3, normal speechSkin: dry, intact, normal color, normal temperature Diagnosis, Assessment Plan Free Text DxA P NotesFree Text DxA P Notes:Assessment:Strep bacteremiaInfluenza AStrep PneumoniaCholelithiasis and sludge- asymptomatichepatosplenomegalyHep C, untreatedhypomagnesemia- repletedhistory of Alcoholism, last relapse in 2019substance abuse- benzodiazepie and methamphetamine abuseIV drug abuse history Anxiety, uncontrolledfibromyalgia, on gabapentinDepression with suicidal ideation in the past- stable today, no SIdaily vape use Plan:ceftriaxone- switched to 2 gm, with doxycyclinegiven IV drug abuse history with strep bacteremia, echo orderedrepeat blood cultures orderedliver enzymes trending downOffered nicotine patch, not wanting at this timesupplemental O2 tamiflu bid x 10 daysguafenesin bidno recent alcohol useacute hep panel- pendingacetaminophen levels lowno benzo administration for anxietylidocaine patch, metadone (home dose)caution with tylenol use given elevations in liver enzymesno additional opiods- discussed with nursing and night team. Can have NSAIDs. Good renal functionCTA negative for PEPT/INRpneumonia studies- urine strep Ag +sputum/nasopharyngeal cultures pendingblood cultures pendingESR, CRP- elevatedIVF- given 1 L bolus in ED, additional 2 liters at 75cc/hlactic acid level wnlprocal level 1.77incentive spirometerabdominal ultrasound- cholelithiasis, discussed findingsliver enzmyes trending downPT/OTairborne precautions FULL CODEregular dietPOC: daughter- Vicenta [phone] Guzzi- () [phone] clinic number [phone] Dispo: Lidocaine patch, symptom and pain control. NSAIDs only for pain control. No opiods to be administered. Repeat blood cultures, echo pending. Liver enzymestrending down. at 0803 RPT #:[id number] OF REPORTPRProgress keew5339-37-60K02:26:00D.DAHE88204893-3657CTHvawv able for patient uxylFKALXSWFLSFCSH0647-23-82D80:03:40 [facility] 2019-12-06 06:26:00 HHlovalgixa45578507Q fnssJtTKgsK7XlbmvE0ws/11/W3cX 697uk03RTnSALbE2/pF9Th3mDJMxaenWRX6929-83-02L34:2 6:00 [facility])Hospitalist Progress NoteREPORT#:[id number] REPORT STATUS: SignedDATE:12/06/19 TIME: 625 PATIENT: BRANDY BARRAZA UNIT #: [id number]#: [id number] [address]UUH: 77 AGE: 44 SEX: F ATTEND: Becki Shirley [facility] AUTHOR: Court Garza DO R2 * ALL edits or amendments must be made on the electronic/computer document * SubjectiveChief Complaint:f/u influenza, chills, pain, fever Free Text Subj NotesFree Subj Notes:Patient seen and evaluated at bedside this AM. Reports feeling better. Discussedblood work. There is history of IVDU. Echo ordered. Asked specifically for dilaudid last night and received morphine. Review of SystemsConstitutional:Reports: fatigue. Denies: chills, fever. Skin:Denies: rash, swelling. Eyes:Denies: redness, visual loss/blurred. ENT:Reports: sore throat. Denies: nasal congestion. Respiratory:Reports: non productive cough. Denies: hemoptysis, SOB, wheezing. Cardiovascular:Reports: other (inspiratory chest pain). Denies: chest pain, palpitations. GI:Denies: abdominal pain, constipation, diarrhea, nausea, vomiting. :Denies: dysuria, flank pain, frequency, urgency. Musculoskeletal:Reports: other (L sided rib inspiratory pain). Neuro:Reports: weakness. Denies: confusion, dizziness, gait problem, headache. Psych:Denies: agitation, anxiety. Objective GeneralVS/I O:Vital Signs: Date Time Temp Pulse Resp B/P B/P Pulse O2 O2 Flow FiO2 Mean Ox Delivery Rate 12/06 0731 97.5 58 15 145/90 108.3 95 12/06 0414 97.7 61 18 131/83 98.7 99 Nasal cannula 12/05 2351 97.5 65 20 150/90 110.0 96 Room air 12/05 2351 97.5 65 20 150/90 110.0 96 Room air 12/05 2035 96 Nasal 5.932509 cannula 12/05 1954 Nasal 3.837302 cannula 12/05 1936 97.5 78 18 126/85 98.5 96 Nasal cannula 12/05 193 97.5 78 18 126/85 98.5 96 Nasal cannula 12/05 1720 97.9 68 18 123/74 90.5 98 Nasal cannula 12/05 1201 97.5 66 20 113/76 88.0 99 Nasal cannula 12/05 0910 High flow 5.438125 nasal cannula 12/05 0803 97.9 87 20 119/74 89.4 94 Room air 12/05 0800 97 Nasal 5.111481 cannula 24 hour I O ending at 0700: 12/06 0700 12/05 1900 Intake Total 2105.00 120 Output Total Balance 2105.00 120 Intake, IV 1625.00 Intake, Oral 480 120 Number Voids 6 1 Patient Weight Weight (lb): Weight (oz): Weight (kg): 63.636 Physical ExamGeneral appearance: alert, awake, orientedHead/Eyes: atraumatic, normal conjunctiva/scleraENT: moist mucosal membranesNeck: non-tender, no JVDCardiovascular: normal capillary refill, regular rate rhythmRespiratory: decreased breath sounds, aerating well, unable to take deep breathsdue to painAbdomen: non-tender, soft, no distentionGenitourinary: no bladder distention, no flank painExtremities: moves all, normal capillary refillMusculoskeletal: normal inspection, L sided rib pain, tenderness to palpation and with deep inspiratory effortNeuro/RIVET SPINNER: alert, oriented X 3, normal speechSkin: dry, intact, normal color, normal temperature Diagnosis, Assessment Plan Free Text DxA P NotesFree Text DxA P Notes:Assessment:Strep bacteremiaInfluenza AStrep PneumoniaCholelithiasis and sludge- asymptomatichepatosplenomegalyHep C, untreatedhypomagnesemia- repletedhistory of Alcoholism, last relapse in 2019substance abuse- benzodiazepie and methamphetamine abuseIV drug abuse history Anxiety, uncontrolledfibromyalgia, on gabapentinDepression with suicidal ideation in the past- stable today, no SIdaily vape use Plan:ceftriaxone- switched to 2 gm, with doxycyclinegiven IV drug abuse history with strep bacteremia, echo orderedrepeat blood cultures orderedliver enzymes trending downOffered nicotine patch, not wanting at this timesupplemental O2 tamiflu bid x 10 daysguafenesin bidno recent alcohol useacute hep panel- pendingacetaminophen levels lowno benzo administration for anxietylidocaine patch, metadone (home dose)caution with tylenol use given elevations in liver enzymesno additional opiods- discussed with nursing and night team. Can have NSAIDs. Good renal functionCTA negative for PEPT/INRpneumonia studies- urine strep Ag +sputum/nasopharyngeal cultures pendingblood cultures pendingESR, CRP- elevatedIVF- given 1 L bolus in ED, additional 2 liters at 75cc/hlactic acid level wnlprocal level 1.77incentive spirometerabdominal ultrasound- cholelithiasis, discussed findingsliver enzmyes trending downPT/OTairborne precautions FULL CODEregular dietPOC: daughter- Vicenta [phone] Guzzi- () [phone] clinic number [phone] Dispo: Lidocaine patch, symptom and pain control. NSAIDs only for pain control. No opiods to be administered. Repeat blood cultures, echo pending. Liver enzymestrending down. at 0803 at 1207 RPT #:[id number] OF REPORTPRProgress epcu1948-89-20R28:26:00D.[id number] able for patient bsdhDPBMXDUBOJQCYI6320-08-99S14:07:58 [facility] 2019-12-05 06:48:00 CZuhzrbbisc50888877H 3gIiwjdfiMHA1YZX5/Bqsv+tvx3H5 lVF+tOapYDl2/CUh+9vG238h90KAz9Id/E6411-49-04I15:4 8:00 [facility])Hospitalist Progress NoteREPORT#:[id number] REPORT STATUS: SignedDATE:12/05/19 TIME: 0648 PATIENT: BRANDY BARRAZA UNIT #: [id number]#: [id number] [address]ZZR: [address] AGE: 44 SEX: F ATTEND: Parrish Li [facility] AUTHOR: Court Garza DO R2 * ALL edits or amendments must be made on the electronic/computer document * SubjectiveChief Complaint:f/u influenza, chills, pain, fever Free Text Subj NotesFree Subj Notes:Patient seen and evaluated at bedside. Pending home medications which her ex- is to bring later today. Received small doses of dilaudid overnight but requesting more. Review of SystemsConstitutional:Reports: fatigue. Denies: chills, fever. Skin:Denies: rash, swelling. Eyes:Denies: redness, visual loss/blurred. ENT:Reports: sore throat. Denies: nasal congestion. Respiratory:Reports: non productive cough. Denies: hemoptysis, SOB, wheezing. Cardiovascular:Reports: other (inspiratory chest pain). Denies: chest pain, palpitations. GI:Denies: abdominal pain, constipation, diarrhea, nausea, vomiting. :Denies: dysuria, flank pain, frequency, urgency. Neuro:Reports: weakness. Denies: confusion, dizziness, gait problem, headache. Psych:Denies: agitation, anxiety. Objective GeneralVS/I O:Vital Signs: Date Time Temp Pulse Resp B/P B/P Pulse O2 O2 Flow FiO2 Mean Ox Delivery Rate 12/05 0803 97.9 87 20 119/74 89.4 94 Room air 12/05 0800 97 Nasal 5.453454 cannula 12/05 417 98.2 92 18 128/79 95.4 97 Nasal cannula 12/05 0004 97.9 98 17 134/80 98.1 96 Nasal cannula 12/04 2100 Nasal 5.437443 cannula 12/04 1956 94 Nasal 5.310087 cannula 01/14 1948 101.3 101 21 154/85 108.0 95 Nasal 5.137765 cannula 12/04 1920 103.1 114 22 120/67 84 93 Nasal 4.972515 cannula 12/04 1740 111 23 152/70 97 97 Nasal 3.991504 cannula 12/04 1530 96 12/04 1526 100.6 104 22 160/81 107 95 12/04 1332 98 Room air 21 24 hour I O ending at 0700: 12/05 0700 12/04 1900 Intake Total 925.00 1010.00 Output Total Balance 925.00 1010.00 Intake, IV 925.00 1010.00 Number Voids 3 Patient 63.636 kg Weight Weight Stated/Reported Measurement Method Patient Weight Weight (lb): Weight (oz): Weight (kg): 63.636 Physical ExamGeneral appearance: alert, awake, orientedHead/Eyes: atraumatic, normal conjunctiva/scleraENT: moist mucosal membranesNeck: non-tender, no JVDCardiovascular: normal capillary refill, regular rate rhythmRespiratory: decreased breath sounds, aerating well, unable to take deep breathsdue to painAbdomen: non-tender, soft, no distentionGenitourinary: no bladder distention, no flank painExtremities: moves all, normal capillary refillMusculoskeletal: normal inspectionNeuro/RIVET SPINNER: alert, oriented X 3, normal speech Diagnosis, Assessment Plan Free Text DxA P NotesFree Text DxA P Notes:Assessment:Influenza AStrep PneumoniaCholelithiasis and sludge- asymptomatichepatosplenomegalyHep C, untreatedhypomagnesemia- repletedhistory of Alcoholism, last relapse in 2019substance abuse- benzodiazepie and methamphetamine abuseAnxiety, uncontrolledfibromyalgia, on gabapentinDepression with suicidal ideation in the past- stable today, no SIdaily vape use Plan:ceftriaxone- switched to 2 gm and doxycyclineOffered nicotine patch, not wanting at this timesupplemental O2 tamiflu bid x 10 daysguafenesin bidno recent alcohol useacute hep panel- pendingacetaminophen levels lowno benzo administration for anxietylidocaine patch, metadone (home dose)caution with tylenol use given elevations in liver enzymesCTA negative for PEPT/INRpneumonia studies- urine strep Ag +sputum/nasopharyngeal cultures pendingblood cultures pendingESR, CRP- elevatedIVF- given 1 L bolus in ED, additional 2 liters at 75cc/hlactic acid level wnlprocal level 1.77incentive spirometerabdominal ultrasound- cholelithiasis, discussed findingsliver enzmyes trending downPT/OTairborne precautions FULL CODEregular dietPOC: daughter- Vicenta [phone] Guzzi- () [phone] clinic number [phone] Dispo: Lidocaine patch, symptom and pain control. Verifying home medications. Cultures pending. Monitor liver enzymes at 1133 RPT #:[id number] OF REPORTPRProgress apxb2686-86-16A47:48:00D.[id number] able for patient zmciALDLSIVRGZGRNX7683-21-82M62:33:53 [facility] 2019-12-05 06:48:00 [id number] 9Ci9fbjo/xEnTZOU+mkQeqfVQo7Hz A9TUz7P9ZOHaoWXRd01dYVctI25YMabPHm2915-44-47C16:4 8:00 [facility]Hospitalist Progress NoteREPORT#:[id number] REPORT STATUS: SignedDATE:12/05/19 TIME: 0648 PATIENT: BRANDY BARRAZA UNIT #: [id number]#: [id number] ROOM/BED: Q736-6TUB: 77 AGE: 44 SEX: F ATTEND: Becki Shirley [facility] AUTHOR: Court Garza DO R2 * ALL edits or amendments must be made on the electronic/computer document * SubjectiveChief Complaint:f/u influenza, chills, pain, fever Free Text Subj NotesFree Subj Notes:Patient seen and evaluated at bedside. Pending home medications which her ex- is to bring later today. Received small doses of dilaudid overnight but requesting more. Review of SystemsConstitutional:Reports: fatigue. Denies: chills, fever. Skin:Denies: rash, swelling. Eyes:Denies: redness, visual loss/blurred. ENT:Reports: sore throat. Denies: nasal congestion. Respiratory:Reports: non productive cough. Denies: hemoptysis, SOB, wheezing. Cardiovascular:Reports: other (inspiratory chest pain). Denies: chest pain, palpitations. GI:Denies: abdominal pain, constipation, diarrhea, nausea, vomiting. :Denies: dysuria, flank pain, frequency, urgency. Neuro:Reports: weakness. Denies: confusion, dizziness, gait problem, headache. Psych:Denies: agitation, anxiety. Objective GeneralVS/I O:Vital Signs: Date Time Temp Pulse Resp B/P B/P Pulse O2 O2 Flow FiO2 Mean Ox Delivery Rate 12/05 0803 97.9 87 20 119/74 89.4 94 Room air 12/05 0800 97 Nasal 5.609275 cannula 12/05 0418 98.2 92 18 128/79 95.4 97 Nasal cannula 12/05 0004 97.9 98 17 134/80 98.1 96 Nasal cannula 12/04 2100 Nasal 5.884262 cannula 12/04 1957 94 Nasal 5.347263 cannula 12/04 1948 101.3 101 21 154/85 108.0 95 Nasal 5.293560 cannula 12/04 1920 103.1 114 22 120/67 84 93 Nasal 4.295522 cannula 12/04 1740 111 23 152/70 97 97 Nasal 3.356996 cannula 12/04 1530 96 12/04 1526 100.6 104 22 160/81 107 95 12/04 1332 98 Room air 21 24 hour I O ending at 0700: 12/05 0700 12/04 1900 Intake Total 925.00 1010.00 Output Total Balance 925.00 1010.00 Intake, IV 925.00 1010.00 Number Voids 3 Patient 63.636 kg Weight Weight Stated/Reported Measurement Method Patient Weight Weight (lb): Weight (oz): Weight (kg): 63.636 Physical ExamGeneral appearance: alert, awake, orientedHead/Eyes: atraumatic, normal conjunctiva/scleraENT: moist mucosal membranesNeck: non-tender, no JVDCardiovascular: normal capillary refill, regular rate rhythmRespiratory: decreased breath sounds, aerating well, unable to take deep breathsdue to painAbdomen: non-tender, soft, no distentionGenitourinary: no bladder distention, no flank painExtremities: moves all, normal capillary refillMusculoskeletal: normal inspectionNeuro/RIVET SPINNER: alert, oriented X 3, normal speech Diagnosis, Assessment Plan Free Text DxA P NotesFree Text DxA P Notes:Assessment:Influenza AStrep PneumoniaCholelithiasis and sludge- asymptomatichepatosplenomegalyHep C, untreatedhypomagnesemia- repletedhistory of Alcoholism, last relapse in 2019substance abuse- benzodiazepie and methamphetamine abuseAnxiety, uncontrolledfibromyalgia, on gabapentinDepression with suicidal ideation in the past- stable today, no SIdaily vape use Plan:ceftriaxone- switched to 2 gm and doxycyclineOffered nicotine patch, not wanting at this timesupplemental O2 tamiflu bid x 10 daysguafenesin bidno recent alcohol useacute hep panel- pendingacetaminophen levels lowno benzo administration for anxietylidocaine patch, metadone (home dose)caution with tylenol use given elevations in liver enzymesCTA negative for PEPT/INRpneumonia studies- urine strep Ag +sputum/nasopharyngeal cultures pendingblood cultures pendingESR, CRP- elevatedIVF- given 1 L bolus in ED, additional 2 liters at 75cc/hlactic acid level wnlprocal level 1.77incentive spirometerabdominal ultrasound- cholelithiasis, discussed findingsliver enzmyes trending downPT/OTairborne precautions FULL CODEregular dietPOC: daughter- Vicenta [phone] Guzzi- () [phone] clinic number [phone] Dispo: Lidocaine patch, symptom and pain control. Verifying home medications. Cultures pending. Monitor liver enzymes at 1133 at 1207 RPT #:[id number] OF REPORTPRProgress xgya3640-27-62Q41:48:00D.CYOW15820141-5272DTOeurh able for patient hhjrIWOJEZIHGWBLOS6881-72-71V19:07:37 [facility] 2019-12-04 17:12:00 [id number] 61R2te9+gpTMNT1PKUchDmJo8e3LA 52SN3PYxVVzAbhQtiS+zgp+uxUOgOKj4yF5753-24-53M72:1 2:00 [facility])Hospitalist History PhysicalREPORT#:[id number] REPORT STATUS: SignedDATE:12/04/19 TIME: 1712 PATIENT: BRANDY BARRAZA UNIT #: [id number]#: [id number] [address] AGE: 44 SEX: F ATTEND: Parrish Li [facility] AUTHOR: Court Garza DO R2 * ALL edits or amendments must be made on the electronic/computer document * History of Present Illness HPIChief complaint:f/u sepsis, pneumoniaPCP:PCP: No Primary or Family Physician HPI:44F w/PMHx of depression, anxiety, fibromyalgia, substance abuse/alcohol abuse, daily vaping, daily methadone use, and untreated Hepatitis C presents to the ED with shortness of breath that woke her up from her sleep yesterday. Associated fevers, chill, blood tinged sputum with productive cough, as well as pain with inspiration x 2 days. She has a child with flu at home. She reports going to [facility] ED yesterday where she was diagnosed with influenza and has since taken2 doses of tamiflu. In ED patient, patient presented with increased respiratory rate and elevated blood pressure but within 4 hours spiked a temperature of 100.6 with a heart rate of 104, RR 22, and BP of 160/81. She tested positive for opiates. Leukocytosis with elevated liver enzymes, creatiine kinase, and ckmb. 2-view CXRreveals developing lingular infiltrate. CTA chest negative for PE but did show splenomegaly. Informant/historian: patient, family/other at bedside, prior records HistoryPast medical history:Reports: Alcoholism/subst abuse, Depression/mood disorder (depression/anxiety), Hepatitis (C). Additional medical history:HEP CAdditional surgical history:DENIESAdditional family history:REVIEWED AND NON-CONTRIBUTORYAlcohol use: Denies EtOH useDrug use: Benzodiazepines, Meth/amphetamines, Opiates (HX OF VICODIN ABUSE)Smoking status for patients 13 years old or older: Current every day smokerAdditional social history:vapes Medication/Allergy-Vaccine HxHome Medications:ARIPiprazole (ABILIFY) 2 MG PO DAILYESCITALOPRAM (LEXAPRO) 20 MG PO DAILYGABAPENTIN (NEURONTIN) 100 MG PO TIDMETHADONE DISPERSIBLE (METHADOSE DISPERSIBLE) 40 MG PO DAILY Discontinued MedicationsCEPHALEXIN (KEFLEX) 500 MG PO Q6H Discontinued reason: DC prior to admitFLUoxetine (PROzac) 20 MG PO DAILY Discontinued reason: DC prior to admitSULFAMETHOXAZOLE/TMP (BACTRIM DS 800/160 MG) 1 EACH PO BID Discontinued reason: DC prior to admittraZODone (DESYREL) 100 MG PO BEDTIME PRN PRN INSOMNIA Discontinued reason: DC prior to admit Allergies:Coded Allergies:No Known Allergies (05/19/19) Ambulatory status: Independent Review of SystemsConstitutional:Reports: chills, fatigue, fever. Skin:Denies: rash, swelling. Eyes:Denies: redness, visual loss/blurred. ENT:Reports: sore throat. Denies: nasal congestion. Respiratory:Reports: productive cough (sputum) (blood tinged sputum), SOB. Denies: hemoptysis, wheezing. Cardiovascular:Reports: other (inspiratory chest pain). Denies: chest pain, palpitations. GI:Denies: abdominal pain, constipation, diarrhea, nausea, vomiting. :Denies: dysuria, flank pain, frequency, urgency. Neuro:Reports: weakness. Denies: confusion, dizziness, gait problem, headache. Psych:Denies: agitation, anxiety. Objective GeneralVS/I O:Vital Signs: Date Time Temp Pulse Resp B/P B/P Pulse O2 O2 Flow FiO2 Mean Ox Delivery Rate 12/04 1530 96 12/04 1526 100.6 104 22 160/81 107 95 12/04 1332 98 Room air 21 12/04 1115 99.5 84 24 137/68 91 95 Room air Patient Weight Weight (lb): Weight (oz): Weight (kg): 63.636 Physical ExamGeneral appearance: alert, awake, oriented, no acute distress, conversationalHead/Eyes: atraumatic, normal conjunctiva/scleraENT: dry mucosal membraneNeck: non-tender, no JVDCardiovascular: normal capillary refill, regular rate rhythmRespiratory: decreased breath sounds, aerating well, unable to take deep breathsdue to painAbdomen: non-tender, soft, no distentionGenitourinary: no bladder distention, no flank painExtremities: moves all, normal capillary refillMusculoskeletal: normal inspectionNeuro/RIVET SPINNER: alert, oriented X 3, normal speech Diagnosis, Assessment Plan Free Text DxA P NotesFree Text DxA P Notes:Assessment:Lingular pneumoniaInfluenza AHepatitishepatosplenomegalyHep C, untreatedhypomagnesemia- repletedhistory of Alcoholism, last relapse in 2019substance abuse- benzodiazepie and methamphetamine abuseAnxiety, uncontrolledfibromyalgia, on gabapentinDepression with suicidal ideation in the past- stable today, no SIdaily vape usemonitor liver enzymes daily Plan:ceftriaxone and doxycyclineOffered nicotine patch, not wanting at this timesupplemental O2 tamiflu bid x 10 daysguafenesin bidno recent alcohol useacute hep panelacetaminophen levelsno benzo administration for anxiety- doesn't take anything at homeno pain medication at this timecaution with tylenol use given elevations in liver enzymesCTA negative for PEPT/INRpneumonia studiesblood cultures pendingESR, CRPIVF- given 1 L bolus in ED, additional 2 liters at 75cc/hlactic acid levelprocal levelincentive spirometerabdominal ultrasoundCXR in AMPT/OTunable to get in touch with clinic regarding methadone use- will need to verify in AM FULL CODEregular dietPOC: daughter- Vicenta [phone] Guzzi- () [phone] Dispo: Admit to inpatient. at 1842 RPT #:[id number] OF REPORTHPHistory and physical beksctchbwa8627-11-65T87:12:00D.[id number] AVAvailable for patient ygdnNDISLVQSLZALWV9554-78-30P50:42:59 [facility] 2019-12-04 17:12:00 [id number] 8+tuCW5pLjSrIsvVjtVg9HB1XYaAr 27ERkafaaK8ZJxecbRYsvDhM4Cxc0Mvk5n5229-65-73V38:1 2:00 [facility])Hospitalist History PhysicalREPORT#:[id number] REPORT STATUS: SignedDATE:12/04/19 TIME: 1712 PATIENT: BRANDY BARRAZA UNIT #: [id number]#: [id number] [facility]WBH: 77 AGE: 44 SEX: F ATTEND: Becki Shirley [facility] AUTHOR: Court Garza DO R2 * ALL edits or amendments must be made on the electronic/computer document * History of Present Illness HPIChief complaint:f/u sepsis, pneumoniaPCP:PCP: No Primary or Family Physician HPI:44F w/PMHx of depression, anxiety, fibromyalgia, substance abuse/alcohol abuse, daily vaping, daily methadone use, and untreated Hepatitis C presents to the ED with shortness of breath that woke her up from her sleep yesterday. Associated fevers, chill, blood tinged sputum with productive cough, as well as pain with inspiration x 2 days. She has a child with flu at home. She reports going to [facility] ED yesterday where she was diagnosed with influenza and has since taken2 doses of tamiflu. In ED patient, patient presented with increased respiratory rate and elevated blood pressure but within 4 hours spiked a temperature of 100.6 with a heart rate of 104, RR 22, and BP of 160/81. She tested positive for opiates. Leukocytosis with elevated liver enzymes, creatiine kinase, and ckmb. 2-view CXRreveals developing lingular infiltrate. CTA chest negative for PE but did show splenomegaly. Informant/historian: patient, family/other at bedside, prior records HistoryPast medical history:Reports: Alcoholism/subst abuse, Depression/mood disorder (depression/anxiety), Hepatitis (C). Additional medical history:HEP CAdditional surgical history:DENIESAdditional family history:REVIEWED AND NON-CONTRIBUTORYAlcohol use: Denies EtOH useDrug use: Benzodiazepines, Meth/amphetamines, Opiates (HX OF VICODIN ABUSE)Smoking status for patients 13 years old or older: Current every day smokerAdditional social history:vapes Medication/Allergy-Vaccine HxHome Medications:ARIPiprazole (ABILIFY) 2 MG PO DAILYESCITALOPRAM (LEXAPRO) 20 MG PO DAILYGABAPENTIN (NEURONTIN) 100 MG PO TIDMETHADONE DISPERSIBLE (METHADOSE DISPERSIBLE) 40 MG PO DAILY Discontinued MedicationsCEPHALEXIN (KEFLEX) 500 MG PO Q6H Discontinued reason: DC prior to admitFLUoxetine (PROzac) 20 MG PO DAILY Discontinued reason: DC prior to admitSULFAMETHOXAZOLE/TMP (BACTRIM DS 800/160 MG) 1 EACH PO BID Discontinued reason: DC prior to admittraZODone (DESYREL) 100 MG PO BEDTIME PRN PRN INSOMNIA Discontinued reason: DC prior to admit Allergies:Coded Allergies:No Known Allergies (05/19/19) Ambulatory status: Independent Review of SystemsConstitutional:Reports: chills, fatigue, fever. Skin:Denies: rash, swelling. Eyes:Denies: redness, visual loss/blurred. ENT:Reports: sore throat. Denies: nasal congestion. Respiratory:Reports: productive cough (sputum) (blood tinged sputum), SOB. Denies: hemoptysis, wheezing. Cardiovascular:Reports: other (inspiratory chest pain). Denies: chest pain, palpitations. GI:Denies: abdominal pain, constipation, diarrhea, nausea, vomiting. :Denies: dysuria, flank pain, frequency, urgency. Neuro:Reports: weakness. Denies: confusion, dizziness, gait problem, headache. Psych:Denies: agitation, anxiety. Objective GeneralVS/I O:Vital Signs: Date Time Temp Pulse Resp B/P B/P Pulse O2 O2 Flow FiO2 Mean Ox Delivery Rate 12/04 1530 96 12/04 1526 100.6 104 22 160/81 107 95 12/04 1332 98 Room air 21 12/04 1115 99.5 84 24 137/68 91 95 Room air Patient Weight Weight (lb): Weight (oz): Weight (kg): 63.636 Physical ExamGeneral appearance: alert, awake, oriented, no acute distress, conversationalHead/Eyes: atraumatic, normal conjunctiva/scleraENT: dry mucosal membraneNeck: non-tender, no JVDCardiovascular: normal capillary refill, regular rate rhythmRespiratory: decreased breath sounds, aerating well, unable to take deep breathsdue to painAbdomen: non-tender, soft, no distentionGenitourinary: no bladder distention, no flank painExtremities: moves all, normal capillary refillMusculoskeletal: normal inspectionNeuro/RIVET SPINNER: alert, oriented X 3, normal speech Diagnosis, Assessment Plan Free Text DxA P NotesFree Text DxA P Notes:Assessment:Lingular pneumoniaInfluenza AHepatitishepatosplenomegalyHep C, untreatedhypomagnesemia- repletedhistory of Alcoholism, last relapse in 2019substance abuse- benzodiazepie and methamphetamine abuseAnxiety, uncontrolledfibromyalgia, on gabapentinDepression with suicidal ideation in the past- stable today, no SIdaily vape usemonitor liver enzymes daily Plan:ceftriaxone and doxycyclineOffered nicotine patch, not wanting at this timesupplemental O2 tamiflu bid x 10 daysguafenesin bidno recent alcohol useacute hep panelacetaminophen levelsno benzo administration for anxiety- doesn't take anything at homeno pain medication at this timecaution with tylenol use given elevations in liver enzymesCTA negative for PEPT/INRpneumonia studiesblood cultures pendingESR, CRPIVF- given 1 L bolus in ED, additional 2 liters at 75cc/hlactic acid levelprocal levelincentive spirometerabdominal ultrasoundCXR in AMPT/OTunable to get in touch with clinic regarding methadone use- will need to verify in AM FULL CODEregular dietPOC: daughterMini Gaona [phone] Guzzi- () [phone] Dispo: Admit to inpatient. at 1842 at 1206 [facility] #:[id number] OF REPORTHPHistory and physical ysgthgeoxqr7964-01-49Y73:12:00D.[id number] AVAvailable for patient sbeaOPFBSVTNAGMACF2725-10-47K48:07:19 [facility] 2019-12-04 16:05:00 [id number] HRTFQMlXW5v+bTFTxkcHsQuS7IAeT uI47gez2bGrN3wTRUlAagr1MiTZMY2DZJ/4585-36-71K29:0 5:[id number] [place], [place] PATIENT NAME: BRANDY BARRAZA ADMIT DATE: 12/04/19ACCOUNT NO: [id number] ROOM NO: D.H414 AGE: 44 REPORT TYPE: ELECTROCARDIOGRAM SEX: F : 79ADMITTING PHYSICIAN:Becki Shirley MD ATTENDING PHYSICIAN:Becki Shirley MD Order:[id number] Reason : Test Date/Time Stamp:TueDec 04 2019 16:05:01Blood Pressure : / mmHGVent. Rate : 100 BPM Atrial Rate : 100 BPM P-R Int : 106 ms QRS Dur : 084 ms QT Int : 342 ms P-R-T Axes : 054 -25 034 degrees QTc Int : 441 ms Sinus rhythm with short PRPossible Left atrial enlargementLeft ventricular hypertrophyAbnormal ECGWhen compared with ECG of 21-MAY-2019 17:07,Vent. rate has increased BY 33 BPMConfirmed by KATHLEEN CHRISTOPHER, JEFF ([id number]), web content editor ADALBERTO RODRIGUEZ ([id number]) on12/27/2019 3:11:46 PM Referred By: Self Referred Confirmed by:JEFF WANG MD at 8353 PATIENT NAME: BRANDY BARRAZA .[id number] AVAvailable for patient uobvNFQYLJJALESBON6761-38-80R18:12:22 [facility] 2019-12-04 11:38:00 [id number] icFf+FcgfGaxqPYK4AfiBE7gLWOt/ S83bqgEPKtQiY5kCIshjVx6ueGk2rt6OIP1991-13-94N22:3 8:00 [facility])OR A C[facility]GENCY PROVIDER REPORTREPORT#:[id number] REPORT STATUS: SignedDATE:12/04/19 TIME: 1138 PATIENT: BRANDY BARRAZA UNIT #: [id number]#: [id number] ROOM[facility]BED: [facility] HospitalG394-7RDQ: 44 SEX: F PCP PHYS: No Primary or Family PhysicianSERVICE AUTHOR: Jeff Damico MD * ALL edits or amendments must be made on the electronic/computer document * HPI-Dyspnea/Wheezing GeneralConfirmed Patient YesPatient Type New patientInitial Greet Date/Time 12/04/19 1135 PresentationChief Complaint Shortness of breathHx Obtained From Patient)( Sudden in Onset? YesOnset Occurred YesterdaySymptom Duration Since onsetProgression since Onset UnchangedCaused by No trauma by historyLocation SubsternalAssociated withReports: Chest pain, Cough, Fever, Hemoptysis, Sore throat. Associated Other Pt denies other symptomsExacerbated by NothingRelieved by Nothing Free Text HPI NotesFree Text HPI Uraer75F w/PMHx of depression and Hepatitis C presents to the ED c/o dyspnea onset yesterday. Patient is currently being treated for the flu and was seen at the [facility] ED where she was diagnosed and treated. However, she was not experiencing dyspnea at the time. In addition, patient endorses hemoptysis, cough, sputum production, fever, sore throat, and chest pain. She denies any other associated symptoms at this time. Portions of this section were scribed by Trinity Gallegos on 12/04/19 at 1731 Review of Systems ROS StatementsAll systems rev neg except as marked. Focused Review of SystemsConstitutionalReports: Fever. Denies: Chills. Ears/Nose/ThroatReports: Nasal congestion, Sore throat. RespiratoryReports: Cough, productive, Hemoptysis, Shortness of breath. CardiovascularReports: Chest pain. Denies: Palpitations. MusculoskeletalDenies: Back pain, Extremity pain. SkinDenies: Contusion, Diaphoresis. Additional Review of SystemsEyesDenies: Blurred bilat, Discharge bilat. GIDenies: Abdominal pain, Nausea, Vomiting. FemaleDenies: Dysuria, Flank pain. NeurologicDenies: Dizziness, Generalized weakness. Portions of this section were scribed by Trinity Gallegos on 12/04/19 at 1146 Past Medical History - AdultStated Complaint FLU, COUGHING UP BLOOD,HURTS TO BREATH,CHEST HURTSAllergiesCoded Allergies:No Known Allergies (05/19/19) Home MedicationsActive ScriptsGABAPENTIN (NEURONTIN) 100 MG PO TID 14 Days #42 CAP Prov: 05/23/19ARIPiprazole (ABILIFY) 2 MG PO DAILY ARIPiprazole (ABILIFY) 2 MG PO DAILY #30 TAB Prov: 05/28/19 Discontinued ScriptsSULFAMETHOXAZOLE/TMP (BACTRIM DS 800/160 MG) 1 EACH PO BID 3 Days #6 TAB Prov: 05/23/19 DC: 12/04/19 1515 DC prior to admitCEPHALEXIN (KEFLEX) 500 MG PO Q6H CEPHALEXIN (KEFLEX) 500 MG PO Q6H #30 CAP Prov: 05/23/19 DC: 12/04/19 1515 DC prior to admittraZODone (DESYREL) 100 MG PO BEDTIME PRN PRN INSOMNIA traZODone (DESYREL) 100 MG PO BEDTIME PRN PRN INSOMNIA #10 TAB Prov: 05/23/19 DC: 12/04/19 1515 DC prior to admitFLUoxetine (PROzac) 20 MG PO DAILY FLUoxetine (PROzac) 20 MG PO DAILY #30 CAP Prov: 05/28/19 DC: 12/04/19 1515 DC prior to admit Reported MedicationsMETHADONE DISPERSIBLE (METHADOSE DISPERSIBLE) 40 MG PO DAILY ESCITALOPRAM (LEXAPRO) 20 MG PO DAILY Review of Nursing Notes Rev avail, and agreePast Medical History:Reports: Alcoholism/subst abuse, Depression/mood disorder (depression/anxiety), Hepatitis (C). Additional Medical HistoryHEP CAdditional Surgical HistoryDENIESAdditional Family HistoryREVIEWED AND NON-CONTRIBUTORYAlcohol Use Denies EtOH useDrug Use Benzodiazepines, Meth/amphetamines, Opiates (HX OF VICODIN ABUSE)Smoking status for patients 13 years old or older: Current every day smokerAdditional Social Historyvapes Portions of this section were scribed by Trinity Gallegos on 12/04/19 at 1610 Physical Exam Vital SignsVital SignsFirst Documented: Result Date Time Pulse Ox 95 12/04 1115 B/P 137/68 12/04 1115 B/P Mean 91 12/04 1115 O2 Delivery Room air 12/04 1115 Temp 37.5 12/04 1115 Pulse 84 12/04 1115 Resp 24 12/04 1115 FiO2 21 12/04 1332 Last Documented: Result Date Time Pulse Ox 96 12/04 1530 B/P 160/81 12/04 1526 B/P Mean 107 12/04 1526 Temp 38.1 12/04 1526 Pulse 104 12/04 1526 Resp 22 12/04 1526 FiO2 21 12/04 1332 O2 Delivery Room air 12/04 1332 Review of Vital Signs Reviewed Focused PEGeneral/Const General/Const Awake, AlertMS Neck Neck Supple, No meningismusResp/Chest Respiratory/Chest Breath sounds = bilat, No respiratory distress Rales/Rhonchi Rales bilateral bases (mild). Cardiovascular Cardiovascular Heart rate NL, Regular rhythm, Heart sounds NLAbdomen/GI Abdomen/GI Soft, Non-tenderMS Back Back Inspection NL, Full range of motionSkin Skin Warm, Dry, IntactNeurologic Neurologic Oriented X3, Speech NL, No motor deficits, No sensory deficits Portions of this section were scribed by Trinity Gallegos on 12/04/19 at 1610 Interpretation Diagnostics Lab Results InterpretationConsiderations Independ review imaging, Reviewed prior recordsResultsLaboratory Tests 12/04/19 1216:[Embedded Image Not Available]Laboratory Tests: 12/04 12/04 12/04 12/04 12/04 1637 1414 1219 1216 1216 Chemistry POC Lactic Acid (0.90 - 1.70 MMOL/L) 1.44 Phosphorus (2.5 - 4.9 MG/DL) 2.8 Rapid Troponin I (0.00 - 0.08 NG/ML) 0.00 C-Reactive Prot, Quant (< 0.9 MG/DL) 4.0 H Toxicology Urine Opiates Screen (NEGATIVE) POSITIVE H Ur Barbiturates Screen (NEGATIVE) NEGATIVE Ur Phencyclidine Scrn (NEGATIVE) NEGATIVE Ur Amphetamine Screen (NEGATIVE) NEGATIVE MDMA (NEGATIVE) NEGATIVE U Benzodiazepines Scrn (NEGATIVE) NEGATIVE Urine Cocaine Screen (NEGATIVE) NEGATIVE U Cannabinoids Screen (NEGATIVE) NEGATIVE 12/04 1216 Chemistry Sodium (133 - 145 MMOL/L) 133 Potassium (3.6 - 5.2 MMOL/L) 4.2 Chloride (100 - 108 MMOL/L) 99 L Carbon Dioxide (22 - 32 MMOL/L) 28 BUN (6 - 20 MG/DL) 10 Creatinine (0.60 - 1.00 MG/DL) 0.70 Estimated GFR (MDRD) (58 - 135) 92 Glucose (65 - 99 MG/DL) 106 H Calcium (8.7 - 10.5 MG/DL) 8.0 L Magnesium (1.8 - 2.4 MG/DL) 1.6 L Total Bilirubin (0.0 - 1.0 MG/DL) 0.9 Direct Bilirubin (0.0 - 0.3 MG/DL) 0.4 H Indirect Bilirubin (0.0 - 0.7 MG/DL) 0.5 AST (15 - 37 Units/L) 181 H ALT (30 - 65 Units/L) 226 H Alkaline Phosphatase (50 - 136 Units/L) 123 Creatine Kinase (26 - 192 Units/L) 327 H CK-MB (CK-2) (0.0 - 3.6 NG/ML) 6.6 H CK-MB (CK-2) Rel Index (0.0 - 2.4 %) 2.0 NT-Pro-B Natriuret Pep (0 - 125 PG/ML) 309 H Total Protein (6.4 - 8.2 G/DL) 7.9 Albumin (3.4 - 5.0 G/DL) 3.1 L Globulin (1.5 - 3.8 G/DL) 4.8 H Albumin/Globulin Ratio (1.1 - 2.2) 0.6 L Lipase (73 - 393 Units/L) 127 Coagulation PT (9.6 - 12.3 SECONDS) 14.2 H INR 1.25 APTT (22.5 - 35.3 SECONDS) 37.6 H Hematology WBC (4.80 - 10.80 x10 3/uL) 15.39 H RBC (4.2 - 5.4 x10 6/uL) 4.52 Hgb (12.0 - 16.0 G/DL) 13.5 Hct (37 - 47 %) 39.6 MCV (81 - 99 FL) 87.6 MCH (27 - 31 PG) 29.9 MCHC (33 - 37 G/DL) 34.1 RDW Coeff of Ramiro (11.5 - 14.5 %) 13.1 Plt Count (150 - 450 x10 3/uL) 144 L MPV (7.4 - 10.4 FL) 10.3 Neut % (Auto) (42 - 86 %) 82.2 Lymph % (Auto) (24 - 44 %) 10.0 L [place] % (Auto) (0.0 - 4.0 %) 5.3 H Eos % (Auto) (0.0 - 2.7 %) 1.4 Baso % (Auto) (0.0 - 0.5 %) 0.3 Eos # (Auto) (0.0 - 0.5 x10 3/uL) 0.21 Baso # (Auto) (0.0 - 0.2 x10 3/uL) 0.04 Abs Immat Gran (auto) (0.00 - 0.03 x10 3/uL) 0.12 H Absolute Neuts (auto) (1.8 - 7.7 x10 3/uL) 12.66 H Absolute Lymphs (auto) (1.0 - 4.8 x10 3/uL) 1.54 Absolute Monos (auto) (0.0 - 0.8 x10 3/uL) 0.82 H Absolute Nucleated RBC (0.0 - 0.2 X10 3/uL) 0.0 Immature Gran % (0.0 - 2.0 %) 0.8 Nucleated RBC % (0.0 - 0.0 %) 0.0 Microbiology: Date/Time Procedure - Status Source Growth 12/04 1423 Blood Culture - RECD BLOOD 12/04 141 Blood Culture - RECD BLOOD Recent Impressions:RADIOLOGY - XR CHEST 2 V 12/04 1145 Report Impression - Status: SIGNED Entered: 12/04/2019 1212 IMPRESSION:1. Developing lingular infiltrateImpression By: Prince - Alberto Perez,[facility] [place] - CTA CHEST FOR PE 12/04 1440 Report Impression - Status: SIGNED Entered: 12/04/2019 1511 Impression: No sign of PE. Left lung infiltrates per above. Splenomegaly. Impression By: Chirag - Ryan Landon MD Lab Imaging StatementLaboratory radiographic studies reviewed and considered in the medical decision-making. Point of Care TestingPulse Oximetry Pulse Ox % 95 On: Room air Interpretation Interpreted by me, Pulse oximetry normal Time 1115 ECG #1 InterpretationECG Documented in MUSE YesDate 12/04/19Time 1605Interpreted by ED physicianNL ECG Interpretation No STEMI, Normal axis, Adequate tracingRate 100Rhythm Sinus rhythm with short PRAtrium and Vent Size Atrial enlargement - L (possible), Ventricle enlarged - L Portions of this section were scribed by Trinity Gallegos on 12/04/19 at 1731 Re-Evaluation MDM )( Re-Evaluation/Progress #1Text/Dict NoteCode Sepsis protocol initiatedTime of Re-Eval 1424)( Re-Eval Status stable ED CourseMedication(s) OrderedMedication(s) Ordered:Anti-Infective Agents Sig/Sarika Start time Last Medication Dose Route Stop Time Status Admin Ceftriaxone Sodium 1,000 MG X1ED STA 12/04 1138 DC 12/04 Sodium Chloride 10 ML IV 12/04 2137 1412 Autonomic Drugs Sig/Sarika Start time Last Medication Dose Route Stop Time Status Admin Albuterol/Ipratropium 1 AMP X1ED STA 12/04 1138 DC 12/04 NEB 12/04 1139 1332 Central Nervous System Agents Sig/Sarika Start time Last Medication Dose Route Stop Time Status Admin Lorazepam 1 MG ONCE ONE 12/04 1505 DC 12/04 IV 12/04 1506 1511 Morphine Sulfate 4 MG X1ED STA 12/04 1137 DC 12/04 IV 12/04 1138 1412 Diagnostic Agents Sig/Sarika Start time Last Medication Dose Route Stop Time Status Admin Iopamidol 0 .STK-MED ONE 12/04 1437 DC 12/04 IV 1454 Electrolytic, Caloric, And Mai Sig/Sarika Start time Last Medication Dose Route Stop Time Status Admin Sodium Chloride 1,000 ML X1ED STA 12/04 1437 DC 12/04 IV 12/04 1536 1501 Gastrointestinal Drugs Sig/Sarika Start time Last Medication Dose Route Stop Time Status Admin Ondansetron HCl 4 MG X1ED STA 12/04 1137 DC 12/04 IV 12/04 1138 1412 Respiratory Tract Agents Sig/Sarika Start time Last Medication Dose Route Stop Time Status Admin Acetylcysteine 400 MG X1ED STA 12/04 1138 DC 12/04 NEB 12/04 1139 1332 Portions of this section were scribed by Trinity Gallegos on 12/04/19 at 1615 Patient Discharge Departure Vital Signs/ConditionVital SignsFirst Documented: Result Date Time Pulse Ox 95 12/04 1115 B/P 137/68 12/04 1115 B/P Mean 91 12/04 1115 O2 Delivery Room air 12/04 1115 Temp 37.5 12/04 1115 Pulse 84 12/04 1115 Resp 24 12/04 1115 FiO2 21 12/04 1332 Last Documented: Result Date Time Pulse Ox 96 12/04 1530 B/P 160/81 12/04 1526 B/P Mean 107 12/04 1526 Temp 38.1 12/04 1526 Pulse 104 12/04 1526 Resp 22 12/04 1526 FiO2 21 12/04 1332 O2 Delivery Room air 12/04 1332 All vital signs available at the time of this entry have been reviewed. Condition Stable Clinical ImpressionClinical ImpressionPrimary Impression: PneumoniaSecondary Impressions: Flu, Sepsis Disposition DecisionAdmit Admit Physician Name Devon Duarte MD Admit Physician Hospitalist Request Time 1647 Request Date 12/04/19 )( Admission Accepts Yes )( Accepted Time 1714 )( Accepted Date 12/04/19 Call Information will see patient, agrees with eval, agrees with plan Discharge/Care PlanCounseled Regarding Diagnosis, Lab results, Imaging studies, Need for admission Admit NoteI have spoken with the patient and/or caregivers. I have explained the patient'scondition, diagnoses and treatment plan based on the information available to meat this time. I have answered the patient's and/or caregiver's questions and addressed any concerns. The patient and/or caregivers have as good an understanding of the patient's diagnosis, condition and treatment plan as can beexpected at this point. The patient has been stabilized within the capability ofthe emergency department. The patient will be transported for further care and management or will be moved to an observation or inpatient service. I have communicated with the staff or medical practitioner taking over this patient's care. Quality MeasuresBP F/U for HTN BP in normal rangeSep: Lactate Ordered 18 years or older, Lactate lv ordered in EDSep: Antibiotics Ordered 18 years or older, Antibiotics ordered in EDSep: Fluid Resuscitation 18 years or older, Rec'd > 1 L crystalloidSep: Lactate Clearance 18 years or older, Lactate clear < 10%Smoking Cessation Screened, tobacco userTobacco Screening/Cessation 18 years or older, Tobacco user Supervising Physician Note Scribe StatementTrinity Gallegos, 12/04/19 1138, scribing for and in the presence of [Dr. Wang].Signed By: Trinity Gallegos, 12/04/19 1138 Provider Scribed StatementI personally performed the services described in this documentation and reviewedthe documentation that was dictated to the scribe(s) in my presence, and it accurately records my words and actions. Jeff Barrera, 12/05/19 Portions of this section were scribed by Trinity Gallegos on 12/04/19 at 1731 at 0703RPT #:[id number] OF REPORTEDEmerselect specialty hospital department [id number]:38:00D.[id number] ilable for patient [id number]:03:30 [facility] 2019-12-03 07:34:00 [id number] [id number]/[id number]:3 4:00 [facility]OR A [facility] PROVIDER REPORTREPORT#:[id number] REPORT STATUS: SignedDATE:12/03/19 TIME: 733 PATIENT: BRANDY BARRAZA UNIT #: [id number]#: [id number] ROOM/BED:AGE: 44 SEX: F PCP PHYS: No Primary or Family PhysicianSERVICE AUTHOR: Bharath Doe MD * ALL edits or amendments must be made on the electronic/computer document * HPI-URI/Cough/Cold GeneralConfirmed Patient YesPatient Type New patientInitial Greet Date/Time 12/03/19 0725 PresentationChief Complaint Cough, non-productive, Fever, Maximum temperature (101), Nasal congestion, Sore throatHx Obtained From PatientOnset Occurred Days agoSymptom Duration ConstantProgression since Onset UnchangedContext of Onset No sick contactsLocation Chest ContextPregnancy/Sexual Hx Menstrual Cycle Post-menopausal (LMP 1 1/2 years ago) Free Text HPI NotesFree Text HPI NotesPatient is an obese 44-year-old female with past medical history significant formajor depressive d/o, fibromyalgia, polysubstace abuse currently on methadone presenting to the emergency department with chief complaint of nonproductive cough for 3-4 days and fever since last night. Patient states that her dry cough started 3 to 4 days ago then she developed a fever (T-max 101-102) last night. Patient also notes associated symptoms of sore throat, nausea without vomiting. Patient states her "lungs feel weird" is worried she may have pneumonia. Patient notes that her son is sick with a sinus infection. Patient denies any foreign travel, recent antibiotic use, chest pain, abdominal pain, rash. Patient currently uses e-cigarettes daily. Review of Systems ROS StatementsAll systems rev neg except as marked. Focused Review of SystemsConstitutionalReports: Fever. Ears/Nose/ThroatReports: Sore throat. RespiratoryReports: Cough, non-productive. Denies: Cough, productive, Shortness of breath,Wheezing. GIReports: Nausea. Denies: Abdominal pain, Vomiting. SkinDenies: Rash. NeurologicDenies: Dizziness. Past Medical History - AdultStated Complaint POSSIBLE FLU, FEVERAllergiesCoded Allergies:No Known Allergies (05/19/19) Home MedicationsActive ScriptsSULFAMETHOXAZOLE/TMP (BACTRIM DS 800/160 MG) 1 EACH PO BID 3 Days #6 TAB Prov: 05/23/19CEPHALEXIN (KEFLEX) 500 MG PO Q6H CEPHALEXIN (KEFLEX) 500 MG PO Q6H #30 CAP Prov: 05/23/19GABAPENTIN (NEURONTIN) 100 MG PO TID 14 Days #42 CAP Prov: 05/23/19traZODone (DESYREL) 100 MG PO BEDTIME PRN PRN INSOMNIA traZODone (DESYREL) 100 MG PO BEDTIME PRN PRN INSOMNIA #10 TAB Prov: 05/23/19ARIPiprazole (ABILIFY) 2 MG PO DAILY ARIPiprazole (ABILIFY) 2 MG PO DAILY #30 TAB Prov: 05/28/19FLUoxetine (PROzac) 20 MG PO DAILY FLUoxetine (PROzac) 20 MG PO DAILY #30 CAP Prov: 05/28/19 Reported MedicationsMETHADONE DISPERSIBLE (METHADOSE DISPERSIBLE) 40 MG PO DAILY Review of Nursing Notes Rev avail, and agreePast Medical History:Reports: Alcoholism/subst abuse, Depression/mood disorder (depression/anxiety), Hepatitis (C). Additional Medical HistoryHEP CAdditional Surgical HistoryDENIESAdditional Family HistoryREVIEWED AND NON-CONTRIBUTORYAlcohol Use Denies EtOH useDrug Use Benzodiazepines, Meth/amphetamines, Opiates (HX OF VICODIN ABUSE)Smoking status for patients 13 years old or older: Current every day smoker (VAPES)Additional Social Historyvapes Physical Exam Vital SignsVital SignsFirst Documented: Result Date Time Pulse Ox 96 12/03 721 B/P 157/77 12/03 721 B/P Mean 103 12/03 721 O2 Delivery Room air 12/03 721 Temp 99.8 12/03 721 Pulse 65 12/03 721 Resp 12/03 Last Documented: Result Date Time Pulse Ox 96 12/03 721 B/P 157/77 12/03 721 B/P Mean 103 12/03 721 O2 Delivery Room air 12/03 721 Temp 99.8 12/03 721 Pulse 65 12/03 721 Resp 12/03 Review of Vital Signs Reviewed Focused PEGeneral/Const General/Const Awake, Alert, No acute distress Behavior Agitated. Appearance/Presentation Obese. Eyes Eyes Atraumatic, PERRL, EOMIEars/Nose/Throat Ears/Nose/Throat Atraumatic, Airway patent, Mucous membranes moist, Pharynx NLMS Neck Neck Atraumatic, Supple, No meningismus, Full range of motion, No adenopathy,No swelling, Non-tenderResp/Chest Respiratory/Chest Atraumatic, Breath sounds NL, Breath sounds = bilat, No respiratory distress, No rales, No rhonchi, No wheezing, No retractions, No stridor, No chest tenderness, No chest wall deformity, No crepitusCardiovascular Cardiovascular Heart rate NL, Regular rhythm, Heart sounds NL, No gallop, No murmurs, No rubs, Cap refill not delayedAbdomen/GI Abdomen/GI Atraumatic, Soft, Non-tender, BS normoactiveSkin Skin Atraumatic, Color NL, No rash, Warm, Dry, Intact, Turgor NL, No swellingNeurologic Neurologic Oriented X3, Speech NL, No motor deficits, CN II - XII intact, Memory NL, Gait NL Additional PEPsychiatric Abnormal Mood/Affect Irritable. Interpretation Diagnostics Lab Results InterpretationResultsMicrobiology: Date/Time Procedure - Status Source Growth 12/03 740 Group A Streptococcus Screen (MOHINDER) - RES THROAT 12/03 0641 Throat Culture - RES THROAT 12/03 0741 Influenza Virus Type B Antigen - COMP NASOPHARG 12/03 740 Influenza Virus Type A Antigen - COMP NASOPHARG Recent Impressions:RADIOLOGY - XR CHEST 2 V 12/03 0752 Report Impression - Status: SIGNED Entered: 12/03/2019 0833 IMPRESSION: No acute cardiopulmonary findingsImpression By: Prince - Alberto Perez MD Lab Imaging StatementLaboratory radiographic studies reviewed and considered in the medical decision-making. Point of Care TestingMicro Interpretation Influenza rapid - pos, Strep rapid - negPulse Oximetry Pulse Ox % 96 On: Room air Interpretation Interpreted by me, Pulse oximetry normal Time 0722 Re-Evaluation MDM Re-Evaluation/Progress URI/Flu Adult MDM NoteThe patient is now resting comfortably, is alert and in no distress. The patienthas a normal mental status and is neurologically intact. The patient appears well and is able to tolerate food or fluid by mouth, and there is no significantdehydration. There is no respiratory distress and no signs of systemic toxicity.The history, exam, diagnostic testing (if any) and current condition do not demonstrate an infectious process such as meningitis, severe pneumonia, retropharyngeal abscess, epiglottitis, sepsis or other serious bacterial infection requiring further testing, treatment, consultation, or admission at this time. The vital signs have been stable. The patient's condition is stable and appropriate for discharge. The patient will pursue further outpatient evaluation with the primary care physician or other designated or consulting physician as indicated in the discharge instructions. ED CourseMedication(s) OrderedMedication(s) Ordered:Gastrointestinal Drugs Sig/Sarika Start time Last Medication Dose Route Stop Time Status Admin Ondansetron Base 4 MG X1ED STA 12/03 732 DC SL 12/03 733 Patient Discharge Departure Vital Signs/ConditionVital SignsFirst Documented: Result Date Time Pulse Ox 96 12/03 721 B/P 157/77 12/03 721 B/P Mean 103 12/03 721 O2 Delivery Room air 12/03 721 Temp 99.8 12/03 721 Pulse 65 12/03 721 Resp 16 12/03 721 Last Documented: Result Date Time Pulse Ox 96 12/03 0722 B/P 157/77 12/03 721 B/P Mean 103 12/03 0622 O2 Delivery Room air 12/03 721 Temp 99.8 12/03 721 Pulse 65 12/03 721 Resp 12/03 All vital signs available at the time of this entry have been reviewed. Condition Stable Clinical ImpressionClinical ImpressionPrimary Impression: Influenza A Disposition DecisionDischarge )( Discharged to Home Yes )( Time 0839 )( Date 12/03/19 Discharge/Care PlanCounseled Regarding Diagnosis, Lab results, Imaging studies, Prescriptions, Needfor follow-up, Smoking cessation, When to return to EDPrescriptionsxofluza, Bromfed DMPrescriptions Reviewed Risks, Benefits, Alternative treatment Discharge NoteI have spoken with the patient and/or caregivers. I have explained the patient'scondition, diagnoses and treatment plan based on the information available to meat this time. I have answered the patient's and/or caregiver's questions and addressed any concerns. The patient and/or caregivers have as good an understanding of the patient's diagnosis, condition and treatment plan as can beexpected at this point. The vital signs have been stable. The patient's condition is stable and appropriate for discharge from the emergency department. The patient will pursue further outpatient evaluation with the primary care physician or other designated or consulting physician as outlined in the discharge instructions. The patient and/or caregivers are agreeable to this planof care and follow-up instructions have been explained in detail. The patient and/or caregivers have received these instructions in written format and have expressed an understanding of the discharge instructions. The patient and/or caregivers are aware that any significant change in condition or worsening of symptoms should prompt an immediate return to this or the closest emergency department or a call to 911. Quality MeasuresBP F/U for HTN BP in normal rangeTobacco Screening/Cessation 18 years or older, Tobacco user (vapes), Smoking cessation offered, Declined help, Counseled 3-10 minutes Smoking Cessation CounselingThe patient was questioned regarding their smoking habits, and I have determined, as the patient's treating physician, that there is a medical necessity in regards to the patient's medical condition to provide smoking cessation program education. The patient was advised to stop smoking and counseled for a period ofgreater than 3 minutes. The patient was instructed to follow up with a primary care physician for smoking cessation and given information regarding local smoking cessation programs in the area. The patient received detailed discharge instructions as to how to stop smoking. The patient expressed an understanding of the need to follow up and the plan for smoking cessation. at 0840RPT #:[id number] OF REPORTEDWestern [facility] department [id number]:34:00D.[id number] ilable for patient [id number]:40:29 [facility] 2019-05-19 15:07:00 [id number] HxyJ/yA/[id number]e0789-90-75K82:0 7:00 [facility])OR A [facility] PROVID[facility] REPORTREPORT#:[id number] REPORT STATUS: SignedDATE:05/19/19 TIME: 1507 PATIENT: BRANDY BARRAZA UNIT #: [id number]#: [id number] ROOM/BED:AGE: 43 SEX: F PCP PHYS: No Primary or Family PhysicianSERVICE AUTHOR: Mariann Hughes CERTIFIED PROFESSIONAL MIDWIFE * ALL edits or amendments must be made on the electronic/computer document * HPI-Rash/Abscess/Cellulitis GeneralConfirmed Patient YesInitial Greet Date/Time 05/19/19 1456PCPNONE PresentationChief Complaint Rash, Tender/swollen areaHx Obtained From Patient, FamilyOnset Occurred Days agoSymptom Duration Since onsetLocation Lower extremityQuality AchingSeverity: Onset MildSeverity: Current ModerateExacerbated by Palpation, ScratchingRelieved by Nothing ContextSimilar Sx Previous NoPregnancy/Sexual Hx Menstrual Cycle Post-menopausal Free Text HPI NotesFree Text HPI [id number] female patient presents to the ER. She reports bilateral lower extremity pain with rash diffusely over her body. The patient states she began having her symptoms 2 days ago. She has history of hepatitis C for which she has not been treated for. She also reports anxiety and depression.Patient states her urine has been dark she has been having nausea and diaphoresis. She occasionally takes ibuprofen for aches and pains.Patient is a former smoker and rarely consumes alcohol. She denies any drug use. Review of Systems ROS StatementsAll systems rev neg except as marked.Complete sys rev neg except as marked. Focused Review of SystemsConstitutionalDenies: Chills, Fever, Weakness - generalized. RespiratoryDenies: Cough, non-productive, Cough, productive, Shortness of breath. CardiovascularDenies: Chest pain. GIReports: Nausea. Denies: Diarrhea, Vomiting. MusculoskeletalReports: Extremity pain, Extremity swelling. SkinReports: Rash. Past Medical History - AdultStated Complaint LEFT LEG PAINAllergiesCoded Allergies:No Known Allergies (05/19/19) Home MedicationsReported MedicationsMETHADONE DISPERSIBLE (METHADOSE DISPERSIBLE) 40 MG PO DAILY Review of Nursing Notes Rev avail, and agreePast Medical History:Reports: Depression/mood disorder (depression/anxiety). Denies: Diabetes mellitus, Hypertension. Additional Medical HistoryHEP CAlcohol Use Denies EtOH useDrug Use Denies recreational drugsSmoking status for patients 13 years old or older: Former SmokerAdditional Social Historyvaps Physical Exam Vital SignsVital SignsFirst Documented: Result Date Time Pulse Ox 97 05/19 1446 B/P 140/70 05/19 1446 B/P Mean 93 05/19 1446 O2 Delivery Room air 05/19 1446 Temp 36.8 05/19 1446 Pulse 70 05/19 1446 Resp 16 05/19 144 Last Documented: Result Date Time Pulse Ox 97 05/19 1446 B/P 140/70 05/19 1446 B/P Mean 93 05/19 1446 O2 Delivery Room air 05/19 1446 Temp 36.8 05/19 1446 Pulse 70 05/19 1446 Resp 16 05/19 144 Review of Vital Signs Reviewed Focused PEGeneral/Const General/Const Awake, Alert, CooperativeEars/Nose/Throat Ears/Nose/Throat Mucous membranes moistResp/Chest Respiratory/Chest Atraumatic, Breath sounds NL, No respiratory distressCardiovascular Cardiovascular Heart rate NL, Regular rhythmMS Upper Extrem Upper Extremity/MS Atraumatic, No swelling, Non-tenderMS Lower Extrem Right Leg/Calf Swelling present, Tenderness present. Left Leg/Calf Swelling present, Tenderness present. Skin Rash/Lesion Location Generalized, Face, Trunk, Chest, Back, Arm R, Arm L, Hand R, Hand L, Palms, Leg R, Leg L. Negative: Foot R, Foot L. Neurologic Neurologic Oriented X3, Speech NL, No motor deficits, No sensory deficits Interpretation Diagnostics Lab Results InterpretationResultsLaboratory Tests 05/19/19 1530:[Embedded Image Not Available]Laboratory Tests: 05/19 05/19 05/19 1545 1530 1530 Chemistry Sodium (133 - 145 MMOL/L) 142 Potassium (3.6 - 5.2 MMOL/L) 4.0 Chloride (100 - 108 MMOL/L) 106 Carbon Dioxide (22 - 32 MMOL/L) 32 BUN (6 - 20 MG/DL) 32 H Creatinine (0.60 - 1.00 MG/DL) 0.77 Estimated GFR (MDRD) (58 - 135) 83 Glucose (65 - 99 MG/DL) 103 H Calcium (8.7 - 10.5 MG/DL) 8.2 L Magnesium (1.8 - 2.4 MG/DL) 1.6 L Total Bilirubin (0.0 - 1.0 MG/DL) 0.6 AST (15 - 37 Units/L) 153 H ALT (30 - 65 Units/L) 292 H Alkaline Phosphatase (50 - 136 Units/L) 114 Ammonia (11 - 35 UMOL/L) 30 Total Protein (6.4 - 8.2 G/DL) 7.1 Albumin (3.4 - 5.0 G/DL) 3.3 L Globulin (1.5 - 3.8 G/DL) 3.8 Albumin/Globulin Ratio (1.1 - 2.2) 0.9 L Lipase (73 - 393 Units/L) 206 Coagulation D-Dimer Quant (PE/DVT) (0 - 400 D-DU) < 100 Hematology WBC (4.80 - 10.80 x10 3/uL) 5.95 RBC (4.2 - 5.4 x10 6/uL) 4.29 Hgb (12.0 - 16.0 G/DL) 13.4 Hct (37 - 47 %) 38.7 MCV (81 - 99 FL) 90.2 MCH (27 - 31 PG) 31.2 H MCHC (33 - 37 G/DL) 34.6 RDW Coeff of Ramiro (11.5 - 14.5 %) 12.1 Plt Count (150 - 450 x10 3/uL) 175 MPV (7.4 - 10.4 FL) 9.8 Neut % (Auto) (42 - 86 %) 50.7 Lymph % (Auto) (24 - 44 %) 34.5 [place] % (Auto) (0.0 - 4.0 %) 6.6 H Eos % (Auto) (0.0 - 2.7 %) 7.7 H Baso % (Auto) (0.0 - 0.5 %) 0.5 Eos # (Auto) (0.0 - 0.5 x10 3/uL) 0.46 Baso # (Auto) (0.0 - 0.2 x10 3/uL) 0.03 Absolute Neuts (auto) (1.8 - 7.7 x10 3/uL) 3.02 Absolute Lymphs (auto) (1.0 - 4.8 x10 3/uL) 2.05 Absolute Monos (auto) (0.0 - 0.8 x10 3/uL) 0.39 Toxicology Urine Opiates Screen (NEGATIVE) NEGATIVE Ur Barbiturates Screen (NEGATIVE) NEGATIVE Ur Phencyclidine Scrn (NEGATIVE) NEGATIVE Ur Amphetamine Screen (NEGATIVE) POSITIVE H MDMA (NEGATIVE) POSITIVE H U Benzodiazepines Scrn (NEGATIVE) POSITIVE H Urine Cocaine Screen (NEGATIVE) NEGATIVE U Cannabinoids Screen (NEGATIVE) NEGATIVE Serum Alcohol (0 - 10 MG/DL) < 3 Urines Urine HCG, Qual (NEGATIVE) NEGATIVE Patient Discharge Departure Vital Signs/ConditionVital SignsFirst Documented: Result Date Time Pulse Ox 97 05/19 1446 B/P 140/70 05/19 1446 B/P Mean 93 05/19 1446 O2 Delivery Room air 05/19 1446 Temp 36.8 05/19 1446 Pulse 70 05/19 1446 Resp 16 05/19 1446 Last Documented: Result Date Time Pulse Ox 97 05/19 1446 B/P 140/70 05/19 1446 B/P Mean 93 05/19 1446 O2 Delivery Room air 05/19 1446 Temp 36.8 05/19 1446 Pulse 70 05/19 1446 Resp 16 05/19 1446 All vital signs available at the time of this entry have been reviewed. Clinical ImpressionClinical ImpressionPrimary Impression: CellulitisSecondary Impressions: Elevated LFTs, Substance abuse Disposition DecisionDischarge )( Discharged to Home Yes )( Time 1636 )( Date 05/19/19 Discharge/Care PlanCounseled Regarding Diagnosis, Lab results, Prescriptions, Need for follow-up, When to return to EDPrescriptionskeflexgiven information for community resources.Prescriptions Reviewed Risks, Benefits, Alternative treatment at 1638RPT #:[id number] OF REPORTEDEmergency department [id number]:07:00D.[id number] ilable for patient [id number]:38:47 [facility] 2019-05-19 15:07:00 [id number] [id number] mVuwUUTF[id number]:0 7:00 [facility]OR A [facility]GENC[facility] PROVIDER REPORTREPORT#:[id number] REPORT STATUS: SignedDATE:05/19/19 TIME: 1506 PATIENT: BRANDY BARRAZA UNIT #: [id number]#: [id number] ROOM/BED:AGE: 43 SEX: F PCP PHYS: No Primary or Family PhysicianSERVICE AUTHOR: Mariann Hughes CERTIFIED PROFESSIONAL MIDWIFE * ALL edits or amendments must be made on the electronic/computer document * Mariann Dos Santos 05/19/19 1507:HPI-Rash/Abscess/Cellulitis GeneralConfirmed Patient YesPCPNONE PresentationChief Complaint Rash, Tender/swollen areaHx Obtained From Patient, FamilyOnset Occurred Days agoSymptom Duration Since onsetLocation Lower extremityQuality AchingSeverity: Onset MildSeverity: Current ModerateExacerbated by Palpation, ScratchingRelieved by Nothing ContextSimilar Sx Previous NoPregnancy/Sexual Hx Menstrual Cycle Post-menopausal Free Text HPI NotesFree Text HPI [id number] female patient presents to the ER. She reports bilateral lower extremity pain with rash diffusely over her body. The patient states she began having her symptoms 2 days ago. She has history of hepatitis C for which she has not been treated for. She also reports anxiety and depression.Patient states her urine has been dark she has been having nausea and diaphoresis. She occasionally takes ibuprofen for aches and pains.Patient is a former smoker and rarely consumes alcohol. She denies any drug use. Review of Systems ROS StatementsAll systems rev neg except as marked.Complete sys rev neg except as marked. Focused Review of SystemsConstitutionalDenies: Chills, Fever, Weakness - generalized. RespiratoryDenies: Cough, non-productive, Cough, productive, Shortness of breath. CardiovascularDenies: Chest pain. GIReports: Nausea. Denies: Diarrhea, Vomiting. MusculoskeletalReports: Extremity pain, Extremity swelling. SkinReports: Rash. Past Medical History - AdultStated Complaint LEFT LEG PAINAllergiesCoded Allergies:No Known Allergies (05/19/19) Home MedicationsReported MedicationsMETHADONE DISPERSIBLE (METHADOSE DISPERSIBLE) 40 MG PO DAILY Review of Nursing Notes Rev avail, and agreePast Medical History:Reports: Depression/mood disorder (depression/anxiety). Denies: Diabetes mellitus, Hypertension. Additional Medical HistoryHEP CAlcohol Use Denies EtOH useDrug Use Denies recreational drugsSmoking status for patients 13 years old or older: Former SmokerAdditional Social Historyvaps Physical Exam Vital SignsVital SignsFirst Documented: Result Date Time Pulse Ox 97 05/19 1446 B/P 140/70 05/19 1446 B/P Mean 93 05/19 1446 O2 Delivery Room air 05/19 1446 Temp 98.2 05/19 1446 Pulse 70 05/19 1446 Resp 16 05/19 1446 Last Documented: Result Date Time Pulse Ox 97 05/19 1446 B/P 140/70 05/19 1446 B/P Mean 93 05/19 1446 O2 Delivery Room air 05/19 1446 Temp 98.2 05/19 1446 Pulse 70 05/19 1446 Resp 16 05/19 1446 Review of Vital Signs Reviewed Focused PEGeneral/Const General/Const Awake, Alert, CooperativeEars/Nose/Throat Ears/Nose/Throat Mucous membranes moistResp/Chest Respiratory/Chest Atraumatic, Breath sounds NL, No respiratory distressCardiovascular Cardiovascular Heart rate NL, Regular rhythmMS Upper Extrem Upper Extremity/MS Atraumatic, No swelling, Non-tenderMS Lower Extrem Right Leg/Calf Swelling present, Tenderness present. Left Leg/Calf Swelling present, Tenderness present. Skin Rash/Lesion Location Generalized, Face, Trunk, Chest, Back, Arm R, Arm L, Hand R, Hand L, Palms, Leg R, Leg L. Negative: Foot R, Foot L. Neurologic Neurologic Oriented X3, Speech NL, No motor deficits, No sensory deficits Interpretation Diagnostics Lab Results InterpretationResultsLaboratory Tests 05/19/19 1530:[Embedded Image Not Available]Laboratory Tests: 05/19 05/19 05/19 1545 1530 1530 Chemistry Sodium (133 - 145 MMOL/L) 142 Potassium (3.6 - 5.2 MMOL/L) 4.0 Chloride (100 - 108 MMOL/L) 106 Carbon Dioxide (22 - 32 MMOL/L) 32 BUN (6 - 20 MG/DL) 32 H Creatinine (0.60 - 1.00 MG/DL) 0.77 Estimated GFR (MDRD) (58 - 135) 83 Glucose (65 - 99 MG/DL) 103 H Calcium (8.7 - 10.5 MG/DL) 8.2 L Magnesium (1.8 - 2.4 MG/DL) 1.6 L Total Bilirubin (0.0 - 1.0 MG/DL) 0.6 AST (15 - 37 Units/L) 153 H ALT (30 - 65 Units/L) 292 H Alkaline Phosphatase (50 - 136 Units/L) 114 Ammonia (11 - 35 UMOL/L) 30 Total Protein (6.4 - 8.2 G/DL) 7.1 Albumin (3.4 - 5.0 G/DL) 3.3 L Globulin (1.5 - 3.8 G/DL) 3.8 Albumin/Globulin Ratio (1.1 - 2.2) 0.9 L Lipase (73 - 393 Units/L) 206 Coagulation D-Dimer Quant (PE/DVT) (0 - 400 D-DU) < 100 Hematology WBC (4.80 - 10.80 x10 3/uL) 5.95 RBC (4.2 - 5.4 x10 6/uL) 4.29 Hgb (12.0 - 16.0 G/DL) 13.4 Hct (37 - 47 %) 38.7 MCV (81 - 99 FL) 90.2 MCH (27 - 31 PG) 31.2 H MCHC (33 - 37 G/DL) 34.6 RDW Coeff of Ramiro (11.5 - 14.5 %) 12.1 Plt Count (150 - 450 x10 3/uL) 175 MPV (7.4 - 10.4 FL) 9.8 Neut % (Auto) (42 - 86 %) 50.7 Lymph % (Auto) (24 - 44 %) 34.5 [place] % (Auto) (0.0 - 4.0 %) 6.6 H Eos % (Auto) (0.0 - 2.7 %) 7.7 H Baso % (Auto) (0.0 - 0.5 %) 0.5 Eos # (Auto) (0.0 - 0.5 x10 3/uL) 0.46 Baso # (Auto) (0.0 - 0.2 x10 3/uL) 0.03 Absolute Neuts (auto) (1.8 - 7.7 x10 3/uL) 3.02 Absolute Lymphs (auto) (1.0 - 4.8 x10 3/uL) 2.05 Absolute Monos (auto) (0.0 - 0.8 x10 3/uL) 0.39 Toxicology Urine Opiates Screen (NEGATIVE) NEGATIVE Ur Barbiturates Screen (NEGATIVE) NEGATIVE Ur Phencyclidine Scrn (NEGATIVE) NEGATIVE Ur Amphetamine Screen (NEGATIVE) POSITIVE H MDMA (NEGATIVE) POSITIVE H U Benzodiazepines Scrn (NEGATIVE) POSITIVE H Urine Cocaine Screen (NEGATIVE) NEGATIVE U Cannabinoids Screen (NEGATIVE) NEGATIVE Serum Alcohol (0 - 10 MG/DL) < 3 Urines Urine HCG, Qual (NEGATIVE) NEGATIVE Patient Discharge Departure Vital Signs/ConditionVital SignsFirst Documented: Result Date Time Pulse Ox 97 05/19 1446 B/P 140/70 05/19 1446 B/P Mean 93 05/19 1446 O2 Delivery Room air 05/19 1446 Temp 98.2 05/19 1446 Pulse 70 05/19 1446 Resp 16 05/19 1446 Last Documented: Result Date Time Pulse Ox 97 05/19 1446 B/P 140/70 05/19 1446 B/P Mean 93 05/19 1446 O2 Delivery Room air 05/19 1446 Temp 98.2 05/19 1446 Pulse 70 05/19 1446 Resp 16 05/19 1446 All vital signs available at the time of this entry have been reviewed. Clinical ImpressionClinical ImpressionPrimary Impression: CellulitisSecondary Impressions: Elevated LFTs, Substance abuse Disposition DecisionDischarge )( Discharged to Home Yes )( Time 1636 )( Date 05/19/19 Discharge/Care PlanCounseled Regarding Diagnosis, Lab results, Prescriptions, Need for follow-up, When to return to EDPrescriptionskeflexgiven information for community resources.Prescriptions Reviewed Risks, Benefits, Alternative treatment Bharath Doe 05/19/19 1743:HPI-Rash/Abscess/Cellulitis GeneralInitial Greet Date/Time 05/19/19 1456 Physical Exam Vital SignsVital Signs Interpretation Diagnostics Lab Results InterpretationResults Patient Discharge Departure Vital Signs/ConditionVital Signs at 1638RPT #:[id number] OF REPORTEDEmergency department [id number]:07:00D.[id number] ilable for patient [id number]:44:31 [facility] 2019-05-19 15:07:00 [id number] hFPhgA/5E4nbSkecfXpOwVRTnOUqRQ/gdp3944-08-73F91:0 7:00 [facility])OR [facility] PROVID[facility] REPORTREPORT#:[id number] REPORT STATUS: SignedDATE:05/19/19 TIME: 1506 PATIENT: BRANDY BARRAZA UNIT #: [id number]#: [id number] ROOM/BED:AGE: 43 SEX: F PCP PHYS: No Primary or Family PhysicianSERVICE AUTHOR: Mariann Hughes CERTIFIED PROFESSIONAL MIDWIFE * ALL edits or amendments must be made on the electronic/computer document * Mariann Dos Santos 05/19/19 1507:HPI-Rash/Abscess/Cellulitis GeneralConfirmed Patient YesPCPNONE PresentationChief Complaint Rash, Tender/swollen areaHx Obtained From Patient, FamilyOnset Occurred Days agoSymptom Duration Since onsetLocation Lower extremityQuality AchingSeverity: Onset MildSeverity: Current ModerateExacerbated by Palpation, ScratchingRelieved by Nothing ContextSimilar Sx Previous NoPregnancy/Sexual Hx Menstrual Cycle Post-menopausal Free Text HPI NotesFree Text HPI [id number] female patient presents to the ER. She reports bilateral lower extremity pain with rash diffusely over her body. The patient states she began having her symptoms 2 days ago. She has history of hepatitis C for which she has not been treated for. She also reports anxiety and depression.Patient states her urine has been dark she has been having nausea and diaphoresis. She occasionally takes ibuprofen for aches and pains.Patient is a former smoker and rarely consumes alcohol. She denies any drug use. Review of Systems ROS StatementsAll systems rev neg except as marked.Complete sys rev neg except as marked. Focused Review of SystemsConstitutionalDenies: Chills, Fever, Weakness - generalized. RespiratoryDenies: Cough, non-productive, Cough, productive, Shortness of breath. CardiovascularDenies: Chest pain. GIReports: Nausea. Denies: Diarrhea, Vomiting. MusculoskeletalReports: Extremity pain, Extremity swelling. SkinReports: Rash. Past Medical History - AdultStated Complaint LEFT LEG PAINAllergiesCoded Allergies:No Known Allergies (05/19/19) Home MedicationsReported MedicationsMETHADONE DISPERSIBLE (METHADOSE DISPERSIBLE) 40 MG PO DAILY Review of Nursing Notes Rev avail, and agreePast Medical History:Reports: Depression/mood disorder (depression/anxiety). Denies: Diabetes mellitus, Hypertension. Additional Medical HistoryHEP CAlcohol Use Denies EtOH useDrug Use Denies recreational drugsSmoking status for patients 13 years old or older: Former SmokerAdditional Social Historyvaps Physical Exam Vital SignsVital SignsFirst Documented: Result Date Time Pulse Ox 97 05/19 1446 B/P 140/70 05/19 1446 B/P Mean 93 05/19 1446 O2 Delivery Room air 05/19 1446 Temp 98.2 05/19 1446 Pulse 70 05/19 1446 Resp 16 05/19 1446 Last Documented: Result Date Time Pulse Ox 97 05/19 1446 B/P 140/70 05/19 1446 B/P Mean 93 05/19 1446 O2 Delivery Room air 05/19 1446 Temp 98.2 05/19 1446 Pulse 70 05/19 1446 Resp 16 05/19 1446 Review of Vital Signs Reviewed Focused PEGeneral/Const General/Const Awake, Alert, CooperativeEars/Nose/Throat Ears/Nose/Throat Mucous membranes moistResp/Chest Respiratory/Chest Atraumatic, Breath sounds NL, No respiratory distressCardiovascular Cardiovascular Heart rate NL, Regular rhythmMS Upper Extrem Upper Extremity/MS Atraumatic, No swelling, Non-tenderMS Lower Extrem Right Leg/Calf Swelling present, Tenderness present. Left Leg/Calf Swelling present, Tenderness present. Skin Rash/Lesion Location Generalized, Face, Trunk, Chest, Back, Arm R, Arm L, Hand R, Hand L, Palms, Leg R, Leg L. Negative: Foot R, Foot L. Neurologic Neurologic Oriented X3, Speech NL, No motor deficits, No sensory deficits Interpretation Diagnostics Lab Results InterpretationResultsLaboratory Tests 05/19/19 1530:[Embedded Image Not Available]Laboratory Tests: 05/19 05/19 05/19 1545 1530 1530 Chemistry Sodium (133 - 145 MMOL/L) 142 Potassium (3.6 - 5.2 MMOL/L) 4.0 Chloride (100 - 108 MMOL/L) 106 Carbon Dioxide (22 - 32 MMOL/L) 32 BUN (6 - 20 MG/DL) 32 H Creatinine (0.60 - 1.00 MG/DL) 0.77 Estimated GFR (MDRD) (58 - 135) 83 Glucose (65 - 99 MG/DL) 103 H Calcium (8.7 - 10.5 MG/DL) 8.2 L Magnesium (1.8 - 2.4 MG/DL) 1.6 L Total Bilirubin (0.0 - 1.0 MG/DL) 0.6 AST (15 - 37 Units/L) 153 H ALT (30 - 65 Units/L) 292 H Alkaline Phosphatase (50 - 136 Units/L) 114 Ammonia (11 - 35 UMOL/L) 30 Total Protein (6.4 - 8.2 G/DL) 7.1 Albumin (3.4 - 5.0 G/DL) 3.3 L Globulin (1.5 - 3.8 G/DL) 3.8 Albumin/Globulin Ratio (1.1 - 2.2) 0.9 L Lipase (73 - 393 Units/L) 206 Coagulation D-Dimer Quant (PE/DVT) (0 - 400 D-DU) < 100 Hematology WBC (4.80 - 10.80 x10 3/uL) 5.95 RBC (4.2 - 5.4 x10 6/uL) 4.29 Hgb (12.0 - 16.0 G/DL) 13.4 Hct (37 - 47 %) 38.7 MCV (81 - 99 FL) 90.2 MCH (27 - 31 PG) 31.2 H MCHC (33 - 37 G/DL) 34.6 RDW Coeff of Ramiro (11.5 - 14.5 %) 12.1 Plt Count (150 - 450 x10 3/uL) 175 MPV (7.4 - 10.4 FL) 9.8 Neut % (Auto) (42 - 86 %) 50.7 Lymph % (Auto) (24 - 44 %) 34.5 [place] % (Auto) (0.0 - 4.0 %) 6.6 H Eos % (Auto) (0.0 - 2.7 %) 7.7 H Baso % (Auto) (0.0 - 0.5 %) 0.5 Eos # (Auto) (0.0 - 0.5 x10 3/uL) 0.46 Baso # (Auto) (0.0 - 0.2 x10 3/uL) 0.03 Absolute Neuts (auto) (1.8 - 7.7 x10 3/uL) 3.02 Absolute Lymphs (auto) (1.0 - 4.8 x10 3/uL) 2.05 Absolute Monos (auto) (0.0 - 0.8 x10 3/uL) 0.39 Toxicology Urine Opiates Screen (NEGATIVE) NEGATIVE Ur Barbiturates Screen (NEGATIVE) NEGATIVE Ur Phencyclidine Scrn (NEGATIVE) NEGATIVE Ur Amphetamine Screen (NEGATIVE) POSITIVE H MDMA (NEGATIVE) POSITIVE H U Benzodiazepines Scrn (NEGATIVE) POSITIVE H Urine Cocaine Screen (NEGATIVE) NEGATIVE U Cannabinoids Screen (NEGATIVE) NEGATIVE Serum Alcohol (0 - 10 MG/DL) < 3 Urines Urine HCG, Qual (NEGATIVE) NEGATIVE Patient Discharge Departure Vital Signs/ConditionVital SignsFirst Documented: Result Date Time Pulse Ox 97 05/19 1446 B/P 140/70 05/19 1446 B/P Mean 93 05/19 1446 O2 Delivery Room air 05/19 144 Temp 98.2 05/19 1446 Pulse 70 05/19 1446 Resp 16 05/19 1446 Last Documented: Result Date Time Pulse Ox 97 05/19 1446 B/P 140/70 05/19 1446 B/P Mean 93 05/19 1446 O2 Delivery Room air 05/19 1446 Temp 98.2 05/19 1446 Pulse 70 05/19 1446 Resp 16 05/19 1446 All vital signs available at the time of this entry have been reviewed. Clinical ImpressionClinical ImpressionPrimary Impression: CellulitisSecondary Impressions: Elevated LFTs, Substance abuse Disposition DecisionDischarge )( Discharged to Home Yes )( Time 1636 )( Date 05/19/19 Discharge/Care PlanCounseled Regarding Diagnosis, Lab results, Prescriptions, Need for follow-up, When to return to EDPrescriptionskeflexgiven information for community resources.Prescriptions Reviewed Risks, Benefits, Alternative treatment Bharath Doe 05/19/19 1743:HPI-Rash/Abscess/Cellulitis GeneralInitial Greet Date/Time 05/19/19 1456 Portions of this section were scribed by Jolene Fall on 05/19/19 at 1750 Physical Exam Vital SignsVital Signs Portions of this section were scribed by Jolene Fall on 05/19/19 at 1750 Interpretation Diagnostics Lab Results InterpretationResults Portions of this section were scribed by Jolene Fall on 05/19/19 at 1750 Re-Evaluation MDM Free Text MDM NotesFree Text MDM Notes36 yr/old F presents to the ED with c/o Lower extremity pain and rash onset x2 ago. Pt states touch exacerbates her legs. Redness is also present bilaterally on her arms and legs. She denies any recent trauma, recent antiobiotics, camping, traveling, and beach visits. PE: very anxious Bed side ultrasound showed mild cobblestoning. Portions of this section were scribed by Jolene Fall on 05/19/19 at 1750 Patient Discharge Departure Vital Signs/ConditionVital Signs Supervising Physician Note MidLv/Doc Saw Pt 2I have personally interviewed and examined the patient. All charts, labs, and imaging studies were reviewed. I agree with this PA/ui software engineer findings, exam and plan. Scribe StatementJolene Fall, 05/19/19 1750, scribing for and in the presence of [].Signed By: Jolene Fall, 05/19/19 175 Provider Scribed StatementI personally performed the services described in this documentation and reviewedthe documentation that was dictated to the scribe(s) in my presence, and it accurately records my words and actions. Bharath Doe, 05/19/19 Portions of this section were scribed by Jolene Fall on 05/19/19 at 1750 at 1638 at 1815RPT #:[id number] OF REPORTEDEmerselect specialty hospital department [id number]:07:00D.[id number] scable for patient gyryHENIDGTUYIPNSA8683-14-82U99:15:33 [facility]
[2024-02-14 23:48] LABS: Absolute Eosinophils 0.1 K/uL (0-0.5); Absolute Lymphocytes (CBC) 1.5 K/uL (0.7-4.9); Absolute Monocytes 0.3 K/uL (0.1-1.3); Absolute Neutrophil 6.5 K/uL (1.8-8.0); Basophils % 0.5 % (0-1.3); Eosinophils % 1.3 % (0-4.4); Hematocrit 43.6 % (36.0-45.0); Hemoglobin 15.1 g/dL (12.0-15.0); Lymphocytes % 18.1 % (15.3-44.8); MCH 31.7 pg (27.0-35.0); MCHC 34.7 g/dL (32.0-36.0); MCV 91.3 fL (80-100); MPV 8.2 fL (7.6-11.3); Monocytes % 3.8 % (3.3-12.3); Neutrophils % 76.3 % (41.7-73.7); Platelets 179 thou/uL (152-406); RBC Red Blood Cell Count 4.77 M/uL (3.86-4.86)
[2024-02-14 23:50] LABS: PT Prothrombin Time 12.7 SECONDS (9.5-12.5); PTT, Activated Partial Thromb 32.6 SECONDS (24.3-36.9); Protime INR 1.16
[2024-02-15 00:06] LABS: ALT/SGPT 45 U/L (13-56); AST/SGOT 38 U/L (15-37); Albumin 3.7 g/dL (3.4-5.0); Albumin/Globulin Ratio 0.9 (1.1-1.8); Alkaline Phosphatase 99 U/L (45-117); Anion Gap 9.1 mEq/L (5.0-15.0); BUN Blood Urea Nitrogen 8 mg/dL (7-18); Bicarbonate 30 mEq/L (21-32); Bilirubin Direct 0.2 mg/dL (0-0.2); Bilirubin Indirect, Calculated 0.3 mg/dL (0.2-0.8); Bilirubin Total 0.5 mg/dL (0.2-1.0); Globulin 4.1 g/dL (2.3-3.5); Glomerular Filtration Rate 108 ml/min (=/>90); Glucose Level 86 mg/dL (74-106); Potassium 4.1 mEq/L (3.5-5.1); Protein, Total 7.8 g/dL (6.4-8.2); Sodium Level 140 mEq/L (136-145)
[2024-02-15 05:07] LABS: Sqamous Epithelial <5 /HPF (None Seen); Urine Bacteria None Seen /HPF (<20); Urine Bilirubin NEGATIVE (Negative); Urine Blood Negative (Negative); Urine Clarity Clear (Clear); Urine Color Light-Yellow (Yellow); Urine Culture Reflex Order NOT NEEDED; Urine Glucose NEGATIVE (Negative); Urine Ketones NEGATIVE (Negative); Urine Microscopic Reflex YN ORDER UMIC; Urine Nitrite NEGATIVE (Negative); Urine Protein NEGATIVE (Negative); Urine RBC None Seen /HPF (None Seen); Urine Urobilinogen Normal (Normal); Urine WBC None Seen /HPF (<5); Urine pH 5.5 (5.0-7.0)
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
[2024-02-15 05:17] LABS: Barbiturates NEGATIVE (NEGATIVE); Benzodiazepines POSITIVE (NEGATIVE); Cocaine NEGATIVE (NEGATIVE); METHAMPHETAM NEGATIVE (NEGATIVE); Methadone POSITIVE (NEGATIVE); Opiates NEGATIVE (NEGATIVE); Phencyclidine NEGATIVE (NEGATIVE); THC Cannibis POSITIVE (NEGATIVE)
[2024-02-15 08:13] VITALS: O2SAT 100
[2024-02-15 08:40] VITALS: BP 115/65; TEMP 97.8
--- NOTE | 2024-02-15 12:46 | EKG ---
Test Date: 2024-02-14 Test Time: 22:14:50 Beater Out Leveling Machine: GIUSEPPE MEASUREMENT RESULTS: Intervals: Rate: 76 PA: 114 QRSD: 92 QT: 396 QTc: 445 [place]: P: 61 PA: 114 QRS: 14 T: 55 INTERPRETIVE STATEMENTS: Normal sinus rhythm Normal ECG No previous ECG available for comparison Electronically Signed On 02-15-24 12:45:18 CDT by Joshua Van
--- NOTE | 2024-02-15 19:36 | RAD REPORT ---
EXAM DESCRIPTION: CT - Facial Bones W/ Mpr - 02/15/2024 6:51 am CLINICAL HISTORY: The patient is 48 years old and is Female; nasal injury TECHNIQUE: Axial computed tomography images of the head/brain, face and cervical spine without intra venous contrast. Sagittal and coronal reformatted images were created and reviewed. This CT exam was performed using one or more of the following dose reduction techniques: automated exposure cont rol, adjustment of the mA and/or kV according to patient size, and/or use of iterative reconstruction technique. DLP: 1592 mGy*cm COMPARISON: None. FINDINGS: BRAIN: Unremarkable. No hemorrhage. No significant white matter disease. No edema. VENTRICLES: Unremarkable. No ventriculomegaly. SKULL: No acute fracture. SINUSES: Unremarkable as visualized. No acute sinusitis. MASTOID AIR CELLS: Unremarkable as visualized. No mastoid effusion. VERTEBRAE: Reversal of the cervical lordosis. C6-7 degenerative changes. No acute fracture. Normal alignment. DISCS/SPINAL CANAL/NEURAL FORAMINA: See above. SOFT TISSUES: Acute fracture of the left nasal bone. Overlying soft tissue swelling. IMPRESSION: 1. Acute fracture of the left nasal bone. Overlying soft tissue swelling. 2. Reversal of the cervical lordosis. Findings may be positional or due to muscle spasm. 3. No acute intracranial abnormality. 4. No acute cervical spine fracture or subluxation. Electronically signed by: Esequiel Mendenhall DO 02/15/2024 01:48 AM CDT Due to temporary technical issues with the PACS/Fluency reporting system, reports are being signed by the in house radiologists without review as a courtesy to insure prompt reporting. The interpreting radiologist is fully responsible for the content of the report.
--- NOTE | 2024-02-15 19:38 | RAD REPORT ---
EXAM DESCRIPTION: CT - Head C Spine Mpr Wo Con - 02/15/2024 6:51 am CLINICAL HISTORY: The patient is 48 years old and is Female; nasal injury TECHNIQUE: Axial computed tomography images of the head/brain, face and cervical spine without intra venous contrast. Sagittal and coronal reformatted images were created and reviewed. This CT exam was performed using one or more of the following dose reduction techniques: automated exposure cont rol, adjustment of the mA and/or kV according to patient size, and/or use of iterative reconstruction technique. DLP: 1592 mGy*cm COMPARISON: None. FINDINGS: BRAIN: Unremarkable. No hemorrhage. No significant white matter disease. No edema. VENTRICLES: Unremarkable. No ventriculomegaly. SKULL: No acute fracture. SINUSES: Unremarkable as visualized. No acute sinusitis. MASTOID AIR CELLS: Unremarkable as visualized. No mastoid effusion. VERTEBRAE: Reversal of the cervical lordosis. C6-7 degenerative changes. No acute fracture. Normal alignment. DISCS/SPINAL CANAL/NEURAL FORAMINA: See above. SOFT TISSUES: Acute fracture of the left nasal bone. Overlying soft tissue swelling. IMPRESSION: 1. Acute fracture of the left nasal bone. Overlying soft tissue swelling. 2. Reversal of the cervical lordosis. Findings may be positional or due to muscle spasm. 3. No acute intracranial abnormality. 4. No acute cervical spine fracture or subluxation. Electronically signed by: Esequiel Mendenhall DO 02/15/2024 01:48 AM CDT Due to temporary technical issues with the PACS/Fluency reporting system, reports are being signed by the in house radiologists without review as a courtesy to insure prompt reporting. The interpreting radiologist is fully responsible for the content of the report.
== END ==
LOC: ER 21:50
DX: F10.129 Alcohol abuse with intoxication, unspecified (principal); S02.2XXA Fracture of nasal bones, initial encounter for closed fracture; R45.7 State of emotional shock and stress, unspecified
CPT/HCPCS: 36415; 70450; 70486; 72125; 76377; 80048; 80076; 80143; 80179; 81001; 82077; 85025; 85610; 85730; 93005; J3411; J3486; J7030